=== PATIENT | male | born 1950 | race African-American/Black ===

== ENCOUNTER 2016-08-28 14:41 | Emergency (ER) | payer MEDICARE, OTHER ==
[~2016-08-28] VITALS: Ht 182.9 cm; Wt 77.1 kg
[~2016-08-28 14:41] MED LIST: AMBIEN10 M1 ORAL; ASPIRIN BUFFER325 M1 ORAL; ATORVASTATIN CA80 MG ORAL; BACLOFEN10 MG ORAL; BACTRIM 400-801 EACH ORAL; CLOPIDOGREL75 MG ORAL; DEMADEX10 MG IV; DOCUSIL100 M1 ORAL; HYDRALAZINE HCL25 M1 ORAL; ISOSORBIDE MONO30 M1 ORAL; KEFLEX500 MG ORAL; LOPRESSOR25 M1 ORAL; LOTREL 10-40 M1 EACH ORAL; MACROBID100 MG ORAL; NORCO 10-325 T1 EACH ORAL; NORCO 10/3251 EA ORAL; PLAVIX75 MG ORAL; TOPROL XL100 MG ORAL
[2016-08-28 15:00] VITALS: BP 105/69
--- NOTE | 2016-08-28 15:31 | Emergency Room Report ---
History of Present Illness General Chief Complaint: Pain Source: Patient Present Illness HPI Patient complains of right foot injury for one week. Says that he had a spinal cord injury in early and he has no sensation of his right foot. Since then he noticed that he developed a wound on his right foot that is getting larger, red and swollen and is now having discharge. Patient is requesting evaluation of his wound. Allergies: Coded Allergies: No Known Allergies (Unverified , 05/06/15) Patient History Past Medical History: see triage record Pertinent Family History: none Reviewed Nursing Documentation: PMH: Agreed, PSxH: Agreed Nursing Documentation-PMH Hx Cardiac Problems: Yes - [place]; stents Hx Hypertension: Yes - spinal cord injury/broken neck Hx Cancer: No Hx Gastrointestinal Problems: No Hx Spinal Cord Injury: Yes - due to fall Review of Systems All Other Systems: negative except mentioned in HPI Physical Exam Vital Signs Date Time Temp Pulse Resp B/P Pulse Ox O2 Delivery O2 Flow Rate FiO2 08/28/16 14:52 97.7 76 18 105/69 96 Room Air Sp02 EP Interpretation: reviewed, normal General Appearance: no apparent distress, alert, GCS 15, non-toxic Head: normocephalic, atraumatic Musculoskeletal: normal range of motion, non-tender Neurologic: alert, oriented x3, responsive, motor strength/tone normal, speech normal Skin: normal color, no rash, warm/dry, well hydrated, other - 3rd digit of right foot is erythematous with 1cm ulcer at DIP NTTP w/ mild local erythema and discharge. Lymphatic: no adenopathy Medical Decision Making PA Attestation Dr. Nowak is my supervising physician with whom patient management has been discussed with. Diagnostic Impression: Primary Impression: Toe ulcer, right Qualified Codes: L97.511 - Non-pressure chronic ulcer of other part of right foot limited to breakdown of skin Additional Impression: Cellulitis of toe of right foot ER Course Pt. presents to the ED c/o toe wound Ddx considered but are not limited to decubitus ulcer, cellulitis, abscess, osteomyelitis, fracture Vital signs: are WNL, pt. is afebrile H&PE are most consistent with ulcer with cellulitis ORDERS: XR Right Foot ED INTERVENTIONS: Wound Care with xeroform dressing. DISCHARGE: At this time pt. is stable for d/c to home. Advised to f/u with podiatry. Will provide printed patient care instructions, and any necessary prescriptions. Care plan and follow up instructions have been discussed with the patient prior to discharge. Other X-Ray Diagnostic Results Other X-Ray Diagnostic Results : X-Ray Ordered: Right Foot Findings: no fractures, no dislocation Number of Views: 3 Other Impression No Acute abnormality Last Vital Signs Date Time Temp Pulse Resp B/P Pulse Ox O2 Delivery O2 Flow Rate FiO2 08/28/16 14:52 97.7 76 18 105/69 96 Room Air Last Vital Signs Date Time Temp Pulse Resp B/P Pulse Ox O2 Delivery O2 Flow Rate FiO2 08/28/16 17:20 97.9 70 16 111/71 99 Room Air Status: improved Disposition: HOME, SELF-CARE Condition: Stable Scripts Trimethoprim/Sulfamethoxazole 160/800* (BACTRIM DS TABLET*) 1 Each Tablet 1 TAB ORAL TWICE A DAY, #20 TAB Prov: MILA CHARLES.ARose 08/28/16 Cephalexin* (KEFLEX*) 500 Mg Capsule 500 MG ORAL EVERY 12 HOURS, #20 CAP 0 Refills Prov: MILA CHARLES.A. 08/28/16 Patient Instructions: Cellulitis, Skin Ulcer Additional Instructions: Take medication as directed. Patient instructed to take ibuprofen and tylenol as needed for pain. Patient to return for wound check in 2-3 days with podiatry. Advised patient to keep site of infection elevated above the level of their heart 3 or 4 times a day, for 30 minutes each time to help reduce swelling. Patient is to keep the infected area clean and dry. They can take a shower or bath, but be sure to pat the area dry with a towel afterward. Patient instructed to not put any antibiotic ointments or creams on the area. Patient should come back sooner if their symptoms do not get better within 3 days of starting treatment or if the red area gets bigger, more swollen, or more painful. MILA CHARLES Aug 28, 2016 15:31
[2016-08-28 17:00] VITALS: BP 111/71
[2016-08-28] MEDS ORDERED: CEPHALEXIN500 MG ORAL (17:15)
[2016-08-28] MEDS ORDERED: BACTRIM DS TAB1 EAC1 ORAL (17:15)
[2016-08-28 17:20] VITALS: BP 111/71
--- NOTE | 2016-08-29 10:28 | Diagnostic Imaging Report ---
Indication: PAIN Technique: 3 views right foot Comparison: none Findings: There is severe hammertoe deformity of the second digit, less severe hammertoe deformities of the third through fifth digits. Deformity of the second digit limits assessment. No definite acute fractures. Note, however, there is significant flexion deformity of the second proximal interphalangeal joint. The joint spaces are preserved. Impression: Deformity of the second digit. Suspect that this largely represents chronic hammertoe deformity, although acute extension deformity or subluxation of the proximal interphalangeal joint cannot the completely ruled out. No definite acute fracture. Note, however, that evaluation of the second digit for such is limited.
== END 2016-08-28 17:20 | disposition home or self-care (01) ==
LOC: EMR 15:32
DX: L97.511 Non-pressure chronic ulcer of other part of right foot limited to breakdown of skin (principal); L03.031 Cellulitis of right toe; I25.2 Old myocardial infarction; Z95.5 Presence of coronary angioplasty implant and graft
CPT/HCPCS: 99284

== ENCOUNTER 2016-09-12 16:54 | Emergency (ER) | payer MEDICARE, OTHER ==
[~2016-09-12] VITALS: Ht 182.9 cm; Wt 77.1 kg
[~2016-09-12 16:54] MED LIST changes: +BACTRIM DS TAB1 EAC1 ORAL; +CEPHALEXIN500 MG ORAL
[2016-09-12] MEDS ORDERED: Norco 5mg/325mg tab ORAL ONE (17:30)
[2016-09-12] MEDS ORDERED: NORCO 5-325 TA1 EAC1 ORAL (18:25)
[2016-09-12 18:30] VITALS: BP 142/81
--- NOTE | 2016-09-12 21:48 | Emergency Room Report ---
History of Present Illness General Chief Complaint: Lower Extremity Injury Present Illness HPI The patient is a 66-year-old male status post left knee replacement 3 months prior presented for left knee pain which began today. The patient states that he was in the shower, slipped, and felt the knee bent at an irregular angle. Patient states he is feeling a 10 out of 10 dull ache to the back of the knee. he denies any numbness or tingling. Patient denies any radiating pain. The patient has not taken any pain medications Allergies: Coded Allergies: No Known Allergies (Unverified , 05/06/15) Patient History Past Medical History: see triage record Pertinent Family History: none Reviewed Nursing Documentation: PMH: Agreed, PSxH: Agreed Nursing Documentation-PMH Hx Cardiac Problems: Yes - [place]; stents Hx Hypertension: Yes - spinal cord injury/broken neck Hx Cancer: No Hx Gastrointestinal Problems: No Hx Spinal Cord Injury: Yes - due to fall Review of Systems All Other Systems: negative except mentioned in HPI Physical Exam Vital Signs Date Time Temp Pulse Resp B/P Pulse Ox O2 Delivery O2 Flow Rate FiO2 09/12/16 17:05 97.5 73 16 157/84 99 Room Air Sp02 EP Interpretation: reviewed, normal General Appearance: no apparent distress, alert, GCS 15, non-toxic Head: normocephalic, atraumatic Eyes: bilateral eye PERRL, bilateral eye normal inspection ENT: hearing grossly normal, normal pharynx, no angioedema, normal voice Musculoskeletal: normal range of motion, tender - Posterior L knee Neurologic: alert, oriented x3, responsive, motor strength/tone normal, sensory intact, speech normal Psychiatric: judgement/insight normal, memory normal, mood/affect normal, no suicidal/homicidal ideation Skin: other - L knee surgical scar anteriorly Lymphatic: no adenopathy Procedures Splinting Splinting : Consent: Verbal Location: L knee Pre-Made Type: DAVID wrap Pre-Proc Neuro Vasc Exam: normal Post-Proc Neuro Vasc Exam: normal Patient Tolerated: Well Complications: None Medical Decision Making PA Attestation Dr. Nowak is my supervising physician. Patient management was discussed with my supervising physician Diagnostic Impression: Primary Impression: Knee pain, left ER Course The patient is a 66-year-old male status post left knee replacement 3 months prior presented for left knee pain Ddx considered include but not limited to sprain/strain, fracture, contusion Physical exam: No apparent distress. Left knee: Surgical scar anteriorly. Full active range of motion. There is tenderness to palpation over posterior knee. No discoloration. Patient ambulates well with a walker The patient is given pain medication. X-ray of the left knee is unremarkable. Hardware is intact David wrap is placed over the left knee The patient will be discharged home with a prescription for pain medication and needs to follow up with PMD and orthopedic surgeon as soon as possible. ER precautions given Other X-Ray Diagnostic Results Other X-Ray Diagnostic Results : X-Ray Ordered: L knee Date: Sep 12, 2016 EP Interpretation: Yes Findings: no fractures, no dislocation, no soft tissue swelling Number of Views: 3 PA Scribe Text I am acting as scribe for my supervising physician. My supervising physician's interpretation of the L knee xrays are there are no fractures, dislocations or soft tissue swelling. Last Vital Signs Date Time Temp Pulse Resp B/P Pulse Ox O2 Delivery O2 Flow Rate FiO2 09/12/16 18:30 97.5 16 142/81 99 Room Air 09/12/16 17:05 73 Status: improved Disposition: HOME, SELF-CARE Condition: Improved Scripts Hydrocodone Bit/Acetaminophen 5-325* (NORCO 5-325 TABLET*) 1 Each Tablet 1 TAB ORAL Q6HR Y for For Pain, #8 TAB Prov: RUIZ STEEL 09/12/16 Patient Instructions: Knee Pain Additional Instructions: I discussed my findings with the patient. All questions and concerns have been answered. Treatment and medication compliance have been addressed. I advised the patient that they need to follow up with PMD in 3-5 days. Return to ED if pain remains or worsens, numbness or tingling occurs, new rash is noticed, fever is noticed, or if needed for any reason. Patient verbalized understanding of discharge instructions. The patient is advised he needs to followup with his orthopedic doctor. RUIZ STEEL Sep 12, 2016 21:48
--- NOTE | 2016-09-13 11:31 | Diagnostic Imaging Report ---
Indication: PAIN Technique: 3 views of the left knee Comparison: None Findings:There is a left knee prosthesis. This appears well aligned. No periprosthetic lucency is demonstrated. No acute fractures. No dislocations. There are vascular calcifications. Impression:Left knee prosthesis. No unusual features. No acute bony trauma
== END 2016-09-12 18:54 | disposition home or self-care (01) ==
LOC: EMR 17:40
DX: M25.562 Pain in left knee (principal); I25.2 Old myocardial infarction; Z95.5 Presence of coronary angioplasty implant and graft
CPT/HCPCS: 29530; 99283

== ENCOUNTER 2016-10-24 03:47 | Emergency (ER) | payer MEDICARE, OTHER ==
[~2016-10-24] VITALS: Ht 182.9 cm; Wt 77.1 kg
[~2016-10-24 03:47] MED LIST changes: +NORCO 5-325 TA1 EAC1 ORAL
[2016-10-24 03:50] VITALS: BP 178/91
[2016-10-24] MEDS ORDERED: Nitroglycerin Subl 0.4mg tab (Bottle Of 25) SL STA (04:06)
--- NOTE | 2016-10-24 04:06 | Emergency Room Report ---
History of Present Illness General Chief Complaint: Dyspnea/Respdistress Source: Patient Present Illness HPI Is a 66-year-old male with a history of cervical fracture partial paralysis and neurogenic bladder. He also has a history of hypertension and coronary artery disease with 4 stents. He denies any history of CHF. He presents with chief complaint shortness of breath that started about 4 hours ago. Getting worse. Worse with exertion. Worse with lying flat. Denies any chest pain. No cough. Because of respiratory distress he called 911. EMS placed him on oxygen and transferred him here. Allergies: Coded Allergies: No Known Allergies (Unverified , 05/06/15) Patient History Past Medical History: see triage record, old chart reviewed, HTN, AK, CAD Past Surgical History: other Pertinent Family History: none Social History: Denies: smoking Immunizations: other Reviewed Nursing Documentation: PMH: Agreed, PSxH: Agreed Nursing Documentation-PMH Past Medical History: No History, Except For Hx Cardiac Problems: Yes - 4 stents Hx Hypertension: Yes - spinal cord injury/broken neck Hx Cancer: No Hx Gastrointestinal Problems: No Hx Spinal Cord Injury: Yes - due to fall Review of Systems Eye: Denies: blurred vision, eye pain ENT: Denies: ear pain, nose congestion, throat swelling Respiratory: Reports: VALLE, shortness of breath, Denies: cough Cardiovascular: Denies: chest pain, palpitations Gastrointestinal: Denies: abdominal pain, diarrhea, nausea, vomiting Musculoskeletal: Denies: back pain, joint pain Skin: Denies: rash Neurological: Denies: headache, numbness Endocrine: Denies: increased thirst, increased urine Hematologic/Lymphatic: Denies: easy bruising All Other Systems: negative except mentioned in HPI Physical Exam Vital Signs Date Time Temp Pulse Resp B/P Pulse Ox O2 Delivery O2 Flow Rate FiO2 10/24/16 03:43 97.2 82 25 210/108 89 vitals with hypertension and hypoxia Sp02 EP Interpretation: abnormal General Appearance: alert, GCS 15, moderate distress Head: normocephalic, atraumatic Eyes: bilateral eye EOMI, bilateral eye PERRL ENT: hearing grossly normal, normal pharynx Neck: full range of motion, supple, no meningismus Respiratory: chest non-tender, decreased breath sounds, rales Cardiovascular #1: regular rate, rhythm, no murmur Gastrointestinal: normal bowel sounds, non tender, no mass, no organomegaly, no bruit, non-distended Genitourinary: other - Graham Musculoskeletal: back normal, normal range of motion, swelling - 1+ pitting edema Neurologic: alert, oriented x3 Psychiatric: mood/affect normal Skin: warm/dry Procedures Critical Care Time Critical Care Time Critical care is mandated in this patient who presented with respiratory distress secondary to CHF. Patient require my urgent intervention to attenuate the risks of respiratory collapse which may lead to cardiovascular collapse and . Critical care time is 35 minutes excluding any reportable procedure. Critical care time included evaluation, multiple reevaluation, looking at old charts, interpreting laboratory and diagnostic data, discussing case with patient and family and consultants, and charting. Medical Decision Making Diagnostic Impression: Primary Impression: CHF exacerbation Qualified Codes: I50.9 - Heart failure, unspecified Additional Impression: Hypokalemia ER Course Patient presents with acute CHF and hypoxia. He diuresed well here. He put out at least did have liters. He felt much better now. His last echocardiogram done in January of 2016 was unremarkable. Good left ventricular function. I am concerned about a cardiac event causing to be in CHF. He said he was on water pill before but it was cut down. He is stable for transfer to [facility] or [facility]. Patient refused and said he wants to leave and followup with his doctor. I explained the risk of possible cardiac event like a heart attack. He said he felt better and doesn 't want to stay. Patient is competent to make that decision. I will put him on Lasix and potassium. Lab Results Impression labs with elevated BNP EKG Diagnostic Results Rate: normal Rhythm: NSR ST Segments: no acute changes - 1st degree AV block Rhythm Strip Diag. Results EP Interpretation: yes Rate: 66 Rhythm: NSR, no PVC's, no ectopy Chest X-Ray Diagnostic Results EP Interpretation: Yes Findings: no consolidation, no effusion, no pneumothorax, other - CM with vasc congestion Number of Views: 1 Last Vital Signs Date Time Temp Pulse Resp B/P Pulse Ox O2 Delivery O2 Flow Rate FiO2 10/24/16 03:43 97.2 82 25 210/108 89 Status: improved Disposition: AGAINST MEDICAL ADVICE Condition: Improved Scripts Potassium Chloride* (K-DUR*) 10 Meq Capsule.er 10 MEQ ORAL DAILY, #30 TAB 0 Refills Prov: MARISOL CASILLAS M.D. 10/24/16 Furosemide* (LASIX*) 20 Mg Tablet 20 MG ORAL DAILY, #30 TAB Prov: MARISOL CASILLAS M.D. 10/24/16 Additional Instructions: You are leaving AGAINST MEDICAL ADVICE. You may have a heart attack that caused your heart failure. This may be life-threatening. Trachea medication as directed. Followup with your DrRose in one to 2 days. Go ahead and call your DrRose when you get home. Return if you change her mind. MARISOL CASILLAS M.D. October 24, 2016 04:06
[2016-10-24 04:15] LABS: EOSINOPHILS % (AUTO) 6.1 % (0.0-3.0); LYMPHOCYTES % (AUTO) 28.3 % (20.0-45.0); MEAN CORPUSCULAR HGB CONC 30.8 G/DL (32.0-36.0); MEAN CORPUSCULAR VOLUME 84 FL (80-99); MEAN PLATELET VOLUME 6.9 FL (6.5-10.1); MONOCYTES % (AUTO) 7.8 % (1.0-10.0); NEUTROPHILS % (AUTO) 56.9 % (45.0-75.0); PLATELET COUNT 292 K/UL (150-450); RED BLOOD COUNT 4.65 M/UL (4.70-6.10); WHITE BLOOD COUNT 7.8 K/UL (4.8-10.8)
[2016-10-24 04:25] LABS: PROTHROMBIN TIME 10.5 SEC (9.30-11.50)
[2016-10-24 04:27] LABS: TROPONIN I < 0.30 ng/mL (<=0.30)
[2016-10-24 04:28] LABS: ALANINE AMINOTRANSFERASE 9 U/L (3-41); ANION GAP 12 (5-15); ASPARTATE AMINO TRANSFERASE 16 U/L (5-40); CARBON DIOXIDE 28 mEQ/L (20-30); CHLORIDE 97 mEQ/L (98-107); GLOMERULAR FILTRATION RATE > 60 mL/min (>60); HEMOLYSIS 1; POTASSIUM 3.2 mEQ/L (3.4-4.9); SODIUM 137 mEQ/L (135-145); TOTAL PROTEIN 6.9 g/dL (6.6-8.7)
[2016-10-24 04:38] LABS: CKMB 2.1 ng/mL (< 6.7)
[2016-10-24] MEDS ORDERED: Enalaprilat 2.5mg/2ml Inj IV ONE (04:45)
[2016-10-24 05:50] VITALS: BP 170/76
[2016-10-24] MEDS ORDERED: TOPROL XL100 MG ORAL (05:55)
[2016-10-24] MEDS ORDERED: LYRICA300 MG ORAL (05:55)
[2016-10-24] MEDS ORDERED: ASPIRIN325 MG ORAL (05:55)
[2016-10-24] MEDS ORDERED: Norco 5mg/325mg tab ORAL ONE (06:15)
[2016-10-24] MEDS ORDERED: LASIX20 M1 ORAL (06:44)
[2016-10-24] MEDS ORDERED: POTASSIUM CHLO10 MEQ ORAL (06:44)
[2016-10-24 07:08] VITALS: BP 148/68
--- NOTE | 2016-10-24 11:07 | Diagnostic Imaging Report ---
Indication: Dyspnea Comparison: 02/06/16 A single view chest radiograph was obtained. Findings: Reticular densities are prominent bilaterally with cardiomegaly. Findings likely due to interstitial edema. Please correlate clinically. Bones are osteopenic. Impression: Suspected interstitial edema
--- NOTE | 2016-10-25 08:34 | Cardiology Report ---
APPROVED REPORT EKG Measurement Heart [id number] Sinus rhythm with 1st degree AV block Otherwise normal ECG
== END 2016-10-24 07:08 | disposition left against medical advice (07) ==
LOC: EDBD 03:47 → EMR 04:05
DX: I50.9 Heart failure, unspecified (principal); E87.6 Hypokalemia; Z53.21 Procedure and treatment not carried out due to patient leaving prior to being seen by health care provider; I10 Essential (primary) hypertension; Z87.828 Personal history of other (healed) physical injury and trauma; Z98.61 Coronary angioplasty status; I25.2 Old myocardial infarction; Z86.79 Personal history of other diseases of the circulatory system
CPT/HCPCS: 36415; 71010; 80053; 82550; 82553; 83880; 84484; 85025; 85610; 85730; 93005; 96374; 96375; 99291; J1940; J8499

== ENCOUNTER 2017-04-27 13:14 | Emergency (ER) | payer OTHER ==
[~2017-04-27] VITALS: Ht 175.3 cm; Wt 77.1 kg
[~2017-04-27 13:14] MED LIST changes: +ASPIRIN325 MG ORAL; +LASIX20 M1 ORAL; +LYRICA300 MG ORAL; +POTASSIUM CHLO10 MEQ ORAL
[2017-04-27] MEDS ORDERED: Ketorolac 30mg Inj IV ONE (13:45)
[2017-04-27] MEDS ORDERED: Morphine Sulfate 2mg/ml Inj IVP ONE (13:45)
--- NOTE | 2017-04-27 14:29 | Emergency Room Report ---
History of Present Illness General Chief Complaint: Male Urogenital Problems Source: Patient Present Illness HPI Patient presents with suprapubic pain. He has a chronic Zhu catheter in place. He most recently was given a prescription for Pyridium. He has had multiple UTIs in the past. Pyridium hasn't helped him at this time. Denies any fevers or chills. He feels fullness above he pubic area. The Zhu is draining urine that is now orange in color. Pain rated 9/10, constant, burning/ aching, not radiating. No other meds taken for pain. The patient has an indwelling Zhu due to spinal injury. A visiting RN changes the zhu monthly. No change in bowels. No fevers, NV. Chronic back pain from spinal injury and walks with walker. No depression. Urologist is in [facility] where his kids are. He lives here in [place]. Allergies: Coded Allergies: No Known Allergies (Unverified , 05/06/15) Patient History Past Medical History: see triage record Past Surgical History: PTCA, other - spine surgery/broken neck, knee replacement Social History: Denies: smoking Social History Narrative alternates [facility] and here Reviewed Nursing Documentation: PMH: Agreed, PSxH: Agreed Nursing Documentation-PMH Hx Cardiac Problems: Yes - 4 stents Hx Hypertension: Yes - spinal cord injury/broken neck Hx Cancer: No Hx Gastrointestinal Problems: No Hx Spinal Cord Injury: Yes - due to fall Review of Systems All Other Systems: negative except mentioned in HPI Physical Exam Vital Signs Date Time Temp Pulse Resp B/P (MAP) Pulse Ox O2 Delivery O2 Flow Rate FiO2 04/27/17 13:23 97.3 87 20 150/83 99 Room Air Sp02 EP Interpretation: reviewed, normal General Appearance: well appearing, no apparent distress, GCS 15 Head: normocephalic Eyes: bilateral eye normal inspection, bilateral eye PERRL ENT: moist mucus membranes Neck: supple Respiratory: lungs clear, normal breath sounds Cardiovascular #1: regular rate, rhythm Cardiovascular #2: 2+ radial (R) Gastrointestinal: normal inspection, normal bowel sounds, no mass, non- distended, tenderness - minimal suprapubic without mass Genitourinary: normal inspection, other - zhu Musculoskeletal: back normal, decreased range of motion - leg stiffness, other - wide based gate with walker Neurologic: alert, oriented x3, sensory intact, speech normal Psychiatric: mood/affect normal Skin: normal inspection, warm/dry Medical Decision Making Diagnostic Impression: Primary Impression: UTI (urinary tract infection) Qualified Codes: T83.511A - Infection and inflammatory reaction due to indwelling urethral catheter, initial encounter; N39.0 - Urinary tract infection , site not specified Additional Impression: Suprapubic pain ER Course Patient presents with suprapubic pain and chronic zhu. DDx: UTI, diverticulitis, strain amongst others. Labs and abd film indicated with changing zhu. Will treat with analgesics. UA with nitrites and some pyuria. Other labs with normal WBC, H/H and lytes. Abd film unremarkable. Treated with antibiotics. Improved with treatment. Less abd tenderness on re-exam. Patient stable for outpatient observation and treatment. Laboratory Tests Test 04/27/17 14:14 White Blood Count 6.3 K/UL (4.8-10.8) Red Blood Count 4.51 M/UL (4.70-6.10) L Hemoglobin 13.4 G/DL (14.2-18.0) L Hematocrit 41.1 % (42.0-52.0) L Mean Corpuscular Volume 91 FL (80-99) Mean Corpuscular Hemoglobin 29.7 PG (27.0-31.0) Mean Corpuscular Hemoglobin Concent 32.6 G/DL (32.0-36.0) Red Cell Distribution Width 15.1 % (11.6-14.8) H Platelet Count 318 K/UL (150-450) Mean Platelet Volume 6.6 FL (6.5-10.1) Neutrophils (%) (Auto) 38.1 % (45.0-75.0) L Lymphocytes (%) (Auto) 46.9 % (20.0-45.0) H Monocytes (%) (Auto) 12.1 % (1.0-10.0) H Eosinophils (%) (Auto) 1.5 % (0.0-3.0) Basophils (%) (Auto) 1.4 % (0.0-2.0) Prothrombin Time 10.2 SEC (9.30-11.50) Prothrombin Time INR 1.0 (0.9-1.1) PTT 26 SEC (23-33) Urine Color [place] Urine Appearance Clear Urine pH 9 (4.5-8.0) Urine Specific [place] 1.015 (1.005-1.035) Urine Protein 1+ (NEGATIVE) H Urine Glucose (UA) Negative (NEGATIVE) Urine Ketones Negative (NEGATIVE) Urine Occult Blood 1+ (NEGATIVE) H Urine Nitrite Positive (NEGATIVE) H Urine Bilirubin Negative (NEGATIVE) Urine Urobilinogen Normal MG/DL (0.0-1.0) Urine Leukocyte Esterase 1+ (NEGATIVE) H Urine RBC 0-2 /HPF (0 - 0) H Urine WBC 2-4 /HPF (0 - 0) Urine Squamous Epithelial Cells Occasional /LPF Urine Bacteria Moderate /HPF (NONE) H Sodium Level 144 MMOL/L (136-145) Potassium Level 3.6 MMOL/L (3.5-5.1) Chloride Level 108 MMOL/L (98-107) H Carbon Dioxide Level 28 MMOL/L (21-32) Anion Gap 8 mmol/L (5-15) Blood Urea Nitrogen 9 mg/dL (7-18) Creatinine 1.1 MG/DL (0.55-1.30) Estimate Glomerular Filtration Rate > 60 mL/min (>60) Glucose Level 89 MG/DL (74-106) Calcium Level 8.9 MG/DL (8.5-10.1) Total Bilirubin 0.4 MG/DL (0.2-1.0) Aspartate Amino Transferase (AST) 18 U/L (15-37) Alanine Aminotransferase (ALT) 15 U/L (12-78) Alkaline Phosphatase 67 U/L (46-116) Total Creatine Kinase 112 U/L (26-308) Total Protein 7.6 G/DL (6.4-8.2) Albumin 3.5 G/DL (3.4-5.0) Globulin 4.1 g/dL Albumin/Globulin Ratio 0.9 (1.0-2.7) L Lipase 274 U/L (73-393) Other X-Ray Diagnostic Results Other X-Ray Diagnostic Results : X-Ray ordered: abd # of Views/Limited Vs Complete: 1 View Indication: Pain Interpretation: nonspecific bowel gas, no sbo, other - no masses Impression: No acute disease Electronically Signed by: Mukesh Santiago MD Last Vital Signs Date Time Temp Pulse Resp B/P (MAP) Pulse Ox O2 Delivery O2 Flow Rate FiO2 04/27/17 16:22 97.3 60 18 150/75 100 Room Air Status: improved Disposition: HOME, SELF-CARE Condition: Improved Scripts Tramadol Hcl* (ULTRAM*) 50 Mg Tablet 50 MG ORAL Q6H Y for For Pain, #16 TAB 0 Refills Prov: Mukesh Santiago M.D. 04/27/17 Cephalexin* (KEFLEX*) 500 Mg Capsule 500 MG ORAL EVERY 6 HOURS, #28 CAP 0 Refills Prov: Mukesh Santiago M.D. 04/27/17 Referrals: NON PHYSICIAN (PCP) Mukesh Santiago M.D. Apr 27, 2017 14:29
[2017-04-27 14:36] LABS: BASOPHILS % (AUTO) 1.4 % (0.0-2.0); EOSINOPHILS % (AUTO) 1.5 % (0.0-3.0); LYMPHOCYTES % (AUTO) 46.9 % (20.0-45.0); MEAN CORPUSCULAR HEMOGLOBIN 29.7 PG (27.0-31.0); MEAN CORPUSCULAR HGB CONC 32.6 G/DL (32.0-36.0); MEAN CORPUSCULAR VOLUME 91 FL (80-99); MEAN PLATELET VOLUME 6.6 FL (6.5-10.1); MONOCYTES % (AUTO) 12.1 % (1.0-10.0); NEUTROPHILS % (AUTO) 38.1 % (45.0-75.0); PLATELET COUNT 318 K/UL (150-450); RED BLOOD COUNT 4.51 M/UL (4.70-6.10); RED CELL DISTRIBUTION WIDTH 15.1 % (11.6-14.8); WHITE BLOOD COUNT 6.3 K/UL (4.8-10.8)
[2017-04-27 14:37] LABS: APPEARANCE,URINE CLEAR; KETONES,URINE NEGATIVE (NEGATIVE); LEUKOCYTE ESTERASE ,URINE 1+ (NEGATIVE); NITRITE,URINE POSITIVE (NEGATIVE); PH,URINE 9 (4.5-8.0); PROTEIN,URINE 1+ (NEGATIVE); UROBILINOGEN,URINE NORMAL MG/DL (0.0-1.0)
[2017-04-27 14:49] LABS: BACTERIA,URINE MODERATE /HPF; RBC,URINE 0-2 /HPF (0 - 0); SQUAMOUS EPITHELIAL CELL,UR OCCASIONAL /LPF (NONE/OCC)
[2017-04-27 14:50] LABS: PROTHROMBIN TIME 10.2 SEC (9.30-11.50)
[2017-04-27 15:01] VITALS: BP 153/73
[2017-04-27 15:01] LABS: ANION GAP 8 mmol/L (5-15); CALCIUM 8.9 MG/DL (8.5-10.1); CARBON DIOXIDE 28 MMOL/L (21-32); CHLORIDE 108 MMOL/L (98-107); CREATININE 1.1 MG/DL (0.55-1.30); GLOMERULAR FILTRATION RATE > 60 mL/min (>60); POTASSIUM 3.6 MMOL/L (3.5-5.1); SODIUM 144 MMOL/L (136-145)
[2017-04-27 15:05] LABS: ALANINE AMINOTRANSFERASE 15 U/L (12-78); ALBUMIN/GLOBULIN RATIO 0.9 (1.0-2.7); ASPARTATE AMINO TRANSFERASE 18 U/L (15-37); LIPASE 274 U/L (73-393); TOTAL PROTEIN 7.6 G/DL (6.4-8.2)
[2017-04-27] MEDS ORDERED: cefTRIAXone 1 GM in NS 55 ML IVPB ONE (15:15)
--- NOTE | 2017-04-27 15:19 | Diagnostic Imaging Report ---
Indication: Abdominal pain Technique: Supine view of the abdomen Comparison: none Findings: Bowel gas pattern is unremarkable. No unusual masses or calcifications. Impression: No acute process
[2017-04-27] MEDS ORDERED: KEFLEX500 MG ORAL (16:00)
[2017-04-27] MEDS ORDERED: TRAMADOL HCL50 MG ORAL (16:00)
[2017-04-27 16:22] VITALS: BP 150/75
[2017-04-27 16:32] LABS: APPEARANCE,URINE CLEAR; KETONES,URINE NEGATIVE (NEGATIVE); LEUKOCYTE ESTERASE ,URINE 3+ (NEGATIVE); NITRITE,URINE POSITIVE (NEGATIVE); PH,URINE 7 (4.5-8.0); PROTEIN,URINE 1+ (NEGATIVE); UROBILINOGEN,URINE 4 MG/DL (0.0-1.0)
[2017-04-27 16:43] LABS: AMORPHOUS SEDIMENT,UR FEW /LPF; BACTERIA,URINE FEW /HPF
[2017-04-27 16:44] LABS: ICTOTEST NEGATIVE
== END 2017-04-27 16:24 | disposition home or self-care (01) ==
LOC: EMR 13:50
DX: N39.0 Urinary tract infection, site not specified (principal); I10 Essential (primary) hypertension; Z96.659 Presence of unspecified artificial knee joint; Z95.5 Presence of coronary angioplasty implant and graft
CPT/HCPCS: 36415; 74000; 80053; 81001; 81003; 82550; 82962; 83690; 85025; 85610; 85730; 87086; 87181; 96361; 96365; 96374; 96375; 99284; J2405

== ENCOUNTER 2017-07-02 23:36 | Inpatient (IN) | payer OTHER ==
[~2017-07-02] VITALS: Ht 182.9 cm; Wt 78.0 kg
[~2017-07-02 23:36] MED LIST changes: +TRAMADOL HCL50 MG ORAL
[2017-07-02] MEDS ORDERED: Morphine Sulfate 4mg/ml Inj IVP ONE (23:45)
[2017-07-03] VITALS (9 sets, daily range): BP systolic 132–158; BP diastolic 60–85
[2017-07-03 00:18] LABS: BASOPHILS % (AUTO) 1.7 % (0.0-2.0); HEMATOCRIT 38.7 % (42.0-52.0); HEMOGLOBIN 12.7 G/DL (14.2-18.0); LYMPHOCYTES % (AUTO) 46.2 % (20.0-45.0); MEAN CORPUSCULAR VOLUME 89 FL (80-99); MONOCYTES % (AUTO) 8.1 % (1.0-10.0); PLATELET COUNT 320 K/UL (150-450); RED BLOOD COUNT 4.33 M/UL (4.70-6.10); RED CELL DISTRIBUTION WIDTH 13.7 % (11.6-14.8)
[2017-07-03 00:36] LABS: ANION GAP 11 mmol/L (5-15); BLOOD UREA NITROGEN 10 mg/dL (7-18); CALCIUM 9.1 MG/DL (8.5-10.1); CARBON DIOXIDE 24 MMOL/L (21-32); CHLORIDE 98 MMOL/L (98-107); CREATININE 1.4 MG/DL (0.55-1.30); SODIUM 133 MMOL/L (136-145)
[2017-07-03 00:50] LABS: ALANINE AMINOTRANSFERASE 11 U/L (12-78); ALBUMIN 3.9 G/DL (3.4-5.0); ALKALINE PHOSPHATASE 78 U/L (46-116); ASPARTATE AMINO TRANSFERASE 17 U/L (15-37); BILIRUBIN,TOTAL 0.8 MG/DL (0.2-1.0); CKMB 1.8 NG/ML (0.0-3.6); CREATINE KINASE 152 U/L (26-308)
[2017-07-03 01:22] LABS: APPEARANCE,URINE CLEAR; BILIRUBIN, URINE NEGATIVE (NEGATIVE); COLOR,URINE PALE YELLOW; GLUCOSE, URINE (UA) NEGATIVE (NEGATIVE); KETONES,URINE NEGATIVE (NEGATIVE); NITRITE,URINE POSITIVE (NEGATIVE); PH,URINE 6 (4.5-8.0); PROTEIN,URINE NEGATIVE (NEGATIVE); UROBILINOGEN,URINE NORMAL MG/DL (0.0-1.0)
[2017-07-03 01:28] LABS: LEUKOCYTE ESTERASE ,URINE 1+ (NEGATIVE)
--- NOTE | 2017-07-03 01:59 | Emergency Room Report ---
History of Present Illness General Chief Complaint: Chest Pain Source: Patient Present Illness HPI Is a 67-year-old male with a history of CAD with previous stents. Also history of BPH with a chronic Graham. He presents with chief complaint of chest pain. He was at rest watching TV when about pain across his chest. Pain is sharp in nature. Radiating to his right arm. Also felt nauseous but no vomiting. No diaphoresis. No shortness of breath. Onset for 3 hours. He called 911. He received aspirin and nitroglycerin without any relief. Allergies: Coded Allergies: No Known Allergies (Unverified , 05/06/15) Patient History Past Medical History: see triage record, old chart reviewed, HTN, CAD Past Surgical History: other Pertinent Family History: none Social History: Denies: smoking Immunizations: other Reviewed Nursing Documentation: PMH: Agreed, PSxH: Agreed Nursing Documentation-PMH Hx Cardiac Problems: Yes - 4 stents, [place] Hx Hypertension: Yes - spinal cord injury/broken neck Hx Cancer: No Hx Gastrointestinal Problems: No Hx Spinal Cord Injury: Yes - due to fall Review of Systems Eye: Denies: eye pain, blurred vision ENT: Denies: ear pain, nose congestion, throat swelling Respiratory: Denies: cough, shortness of breath Cardiovascular: Reports: chest pain, Denies: palpitations Gastrointestinal: Denies: abdominal pain, diarrhea, nausea, vomiting Musculoskeletal: Denies: back pain, joint pain Skin: Denies: rash Neurological: Denies: headache, numbness Endocrine: Denies: increased thirst, increased urine Hematologic/Lymphatic: Denies: easy bruising All Other Systems: negative except mentioned in HPI Physical Exam Vital Signs Date Time Temp Pulse Resp B/P (MAP) Pulse Ox O2 Delivery O2 Flow Rate FiO2 07/02/17 23:34 98.1 120/76 07/02/17 23:40 61 16 07/03/17 01:42 97 Room Air vitals normal Sp02 EP Interpretation: reviewed, normal General Appearance: well appearing, no apparent distress, alert Head: normocephalic, atraumatic Eyes: bilateral eye PERRL, bilateral eye EOMI ENT: hearing grossly normal, normal pharynx Neck: full range of motion, supple, no meningismus Respiratory: chest non-tender, lungs clear, normal breath sounds Cardiovascular #1: regular rate, rhythm, no murmur Gastrointestinal: normal bowel sounds, non tender, no mass, no organomegaly, no bruit, non-distended Musculoskeletal: back normal, gait/station normal, normal range of motion Psychiatric: mood/affect normal Skin: warm/dry Medical Decision Making Diagnostic Impression: Primary Impression: ACS (acute coronary syndrome) ER Course Patient with chest pain. He has previous stents. Pain resolved now. We'll admit versus transfer for further workup. No evidence of PE, dissection, pneumonia or CHF to name a few. Laboratory Tests Test 07/03/17 00:05 07/03/17 01:05 White Blood Count 6.0 K/UL (4.8-10.8) Red Blood Count 4.33 M/UL (4.70-6.10) L Hemoglobin 12.7 G/DL (14.2-18.0) L Hematocrit 38.7 % (42.0-52.0) L Mean Corpuscular Volume 89 FL (80-99) Mean Corpuscular Hemoglobin 29.3 PG (27.0-31.0) Mean Corpuscular Hemoglobin Concent 32.8 G/DL (32.0-36.0) Red Cell Distribution Width 13.7 % (11.6-14.8) Platelet Count 320 K/UL (150-450) Mean Platelet Volume 7.3 FL (6.5-10.1) Neutrophils (%) (Auto) 43.0 % (45.0-75.0) L Lymphocytes (%) (Auto) 46.2 % (20.0-45.0) H Monocytes (%) (Auto) 8.1 % (1.0-10.0) Eosinophils (%) (Auto) 1.0 % (0.0-3.0) Basophils (%) (Auto) 1.7 % (0.0-2.0) Sodium Level 133 MMOL/L (136-145) L Potassium Level 4.0 MMOL/L (3.5-5.1) Chloride Level 98 MMOL/L (98-107) Carbon Dioxide Level 24 MMOL/L (21-32) Anion Gap 11 mmol/L (5-15) Blood Urea Nitrogen 10 mg/dL (7-18) Creatinine 1.4 MG/DL (0.55-1.30) H Estimat Glomerular Filtration Rate > 60 mL/min (>60) Glucose Level 88 MG/DL (74-106) Calcium Level 9.1 MG/DL (8.5-10.1) Total Bilirubin 0.8 MG/DL (0.2-1.0) Aspartate Amino Transf (AST/SGOT) 17 U/L (15-37) Alanine Aminotransferase (ALT/SGPT) 11 U/L (12-78) L Alkaline Phosphatase 78 U/L (46-116) Total Creatine Kinase 152 U/L (26-308) Creatine Kinase MB 1.8 NG/ML (0.0-3.6) Creatine Kinase MB Relative Index 1.1 Troponin I 0.003 ng/mL (0.000-0.056) Pro-B-Type Natriuretic Peptide 341 pg/mL (0-125) H Total Protein 7.7 G/DL (6.4-8.2) Albumin 3.9 G/DL (3.4-5.0) Globulin 3.8 g/dL Albumin/Globulin Ratio 1.0 (1.0-2.7) Urine Color Pale yellow Urine Appearance Clear Urine pH 6 (4.5-8.0) Urine Specific [place] 1.010 (1.005-1.035) Urine Protein Negative (NEGATIVE) Urine Glucose (UA) Negative (NEGATIVE) Urine Ketones Negative (NEGATIVE) Urine Occult Blood 1+ (NEGATIVE) H Urine Nitrite Positive (NEGATIVE) H Urine Bilirubin Negative (NEGATIVE) Urine Urobilinogen Normal MG/DL (0.0-1.0) Urine Leukocyte Esterase 1+ (NEGATIVE) H Urine RBC 0-2 /HPF (0 - 0) H Urine WBC 10-15 /HPF (0 - 0) H Urine Squamous Epithelial Cells None /LPF (NONE/OCC) Urine Bacteria None /HPF (NONE) Urine Opiates Screen Negative (NEGATIVE) Urine Barbiturates Screen Negative (NEGATIVE) Phencyclidine (PCP) Screen Negative (NEGATIVE) Urine Amphetamines Screen Negative (NEGATIVE) Urine Benzodiazepines Screen Negative (NEGATIVE) Urine Cocaine Screen Negative (NEGATIVE) Urine Marijuana (THC) Screen Negative (NEGATIVE) Lab Results Impression labs unremarkable EKG Diagnostic Results Rate: normal Rhythm: NSR ST Segments: no acute changes Rhythm Strip Diag. Results Rhythm Strip Time: 01:57 Rate: 69 Rhythm: NSR Chest X-Ray Diagnostic Results Chest X-Ray Diagnostic Results : Chest X-Ray Ordered: Yes # of Views/Limited/Complete: 1 View Indication: Chest Pain EP Interpretation: Yes Interpretation: no consolidation, no effusion, no pneumothorax, no acute cardiopulmonary disease Impression: No acute disease Electronically Signed by: Zay Valencia MD Last Vital Signs Date Time Temp Pulse Resp B/P (MAP) Pulse Ox O2 Delivery O2 Flow Rate FiO2 07/03/17 01:42 98.1 62 16 139/69 97 Room Air Status: improved Disposition: ADMITTED INPATIENT Condition: Serious Referrals: NON PHYSICIAN (PCP) ZAY VALENCIA M.D. Jul 03, 2017 01:59
[2017-07-03] MEDS ORDERED: UNOBMED (06:11)
[2017-07-03] MEDS ORDERED: Nitroglycerin Subl 0.4mg tab SL PRN (06:30)
[2017-07-03 07:04] LABS: ALANINE AMINOTRANSFERASE < 6 U/L (12-78); ALBUMIN 3.7 G/DL (3.4-5.0); ALBUMIN/GLOBULIN RATIO 1.1 (1.0-2.7); ALKALINE PHOSPHATASE 73 U/L (46-116); ANION GAP 10 mmol/L (5-15); ASPARTATE AMINO TRANSFERASE 15 U/L (15-37); BILIRUBIN,TOTAL 0.7 MG/DL (0.2-1.0); BLOOD UREA NITROGEN 9 mg/dL (7-18); CALCIUM 8.9 MG/DL (8.5-10.1); CARBON DIOXIDE 25 MMOL/L (21-32); CHLORIDE 102 MMOL/L (98-107); CHOLESTEROL 164 MG/DL (< 200); CREATININE 1.4 MG/DL (0.55-1.30); HDL CHOLESTEROL 52 MG/DL (40-60); POTASSIUM 3.9 MMOL/L (3.5-5.1); SODIUM 136 MMOL/L (136-145); TRIGLYCERIDES 60 MG/DL (30-150)
[2017-07-03] MEDS ORDERED: ISOSORBIDE MONO20 MG PO (07:22)
[2017-07-03] MEDS ORDERED: CIPROFLOXACIN500 M2 ORAL (07:22)
[2017-07-03] MEDS ORDERED: FUROSEMIDE40 MG ORAL (07:22)
[2017-07-03] MEDS ORDERED: METOPROLOL TART25 MG ORAL (07:22)
[2017-07-03] MEDS ORDERED: SULFAMETHOXAZO480 ML ORAL (07:22)
--- NOTE | 2017-07-03 10:20 | Diagnostic Imaging Report ---
Indication: Chest pain Technique: XRAY Chest 1v Comparison: None Findings: Heart size and mediastinal contours are within normal limits and stable compared to the prior exam. Atherosclerotic calcifications again noted in the aortic arch. There is no focal airspace consolidation, pleural effusion or pneumothorax. No evidence of pulmonary edema. No acute osseous abnormality seen. Likely cervical fixation hardware is partially visualized. Impression: No radiographic evidence of acute cardiopulmonary disease.
[2017-07-03] MEDS: Lyrica 75mg cap ORAL SCH ×2 (11:46→18:09)
[2017-07-03] MEDS: HYDROcodone/Acetamin 10/325 tab ORAL PRN ×3 (12:49→21:25)
--- NOTE | 2017-07-03 16:50 | Cardiology Report ---
APPROVED REPORT EXAM: Two-dimensional and M-mode echocardiogram with Doppler and color Doppler. INDICATION Chest Pain M-Mode DIMENSIONS IVSd1.4 (0.7-1.1cm)Left Atrium (MM)3.8 (1.6-4.0cm) LVDd5.0 (3.5-5.6cm)Aortic Root3.5 (2.0-3.7cm) PWd1.6 (0.7-1.1cm)Aortic Cusp Exc.2.0 (1.5-2.0cm) IVSs1.8 cm LVDs3.5 (2.5-4.0cm) PWs2.2 cm Technically difficult study due to poor acoustical windows. Normal left ventricular chamber size, systolic function and wall motion to extent visualized. Left ventricular ejection fraction estimated to be 60-65 %. Study quality precludes accurate assessment of regional wall motion. Mild left ventricular hypertrophy. No evidence of pericardial effusion. All other cardiac chamber sizes are within normal limits. Focal aortic valve sclerosis with adequate cusp excursion. Thickened mitral valve leaflets with normal excursion. Mitral annulus and aortic root calcification. Pulmonic valve not well visualized. Normal tricuspid valve structure. IVC at normal size with physiologic collapse. A color flow and spectral Doppler study was performed and revealed: No aortic insufficiency. No mitral regurgitation. Mitral inflow indicates normal left ventricular diastolic function. Trace tricuspid regurgitation. Tricuspid systolic velocities suggests peak right ventricular systolic pressure of 11 mmHg. No pulmonic regurgitation present.
[2017-07-03] MEDS: Piperacillin/Tazobactam 3.375 GM in NS 110 ML IVPB SCH (17:01)
--- NOTE | 2017-07-03 17:30 | History and Physical Report ---
DATE OF ADMISSION: 07/03/2017 CHIEF COMPLAINT: Unstable angina, acute coronary syndrome. HISTORY OF PRESENT ILLNESS: The patient is a pleasant 67-year-old male. He has a prior history of ischemic cardiomyopathy. He underwent stent placement approximately 10 years ago and then repeat stent placement approximately 5 years ago. At that time, he had substernal chest pressure. He noted on the day of admission that he had worsening chest pressure and shortness of breath. He denies any cough. He has had no fevers and no chills. He has been compliant with medications. He presented to the emergency room where his initial set of enzymes and EKG were unremarkable. In light of his significant cardiac history, he is now admitted for further inpatient evaluation and care. PAST MEDICAL HISTORY: Significant for history of lower extremity weakness, history of spinal cord injury, history of neck surgery and history of knee replacement. MEDICATIONS: Current medications reconciled and reviewed. ALLERGIES: None. FAMILY HISTORY: None. SOCIAL HISTORY: There is no known history of tobacco, ethanol, or drugs. REVIEW OF SYSTEMS: GENERAL: No fever or chills. HEENT: No headaches or visual changes. CARDIOPULMONARY: Positive chest pain and shortness of breath. No cough. No congestion. GASTROINTESTINAL: No nausea or vomiting. GENITOURINARY: No urgency or frequency. Positive history of chronic indwelling Graham catheter. NEUROLOGIC: There is no history of seizures. Positive history of spinal cord injury with lower extremity weakness. PHYSICAL EXAMINATION: VITAL SIGNS: Temperature 97.2 degrees, pulse 60, respirations 16 and blood pressure 149/70. GENERAL: The patient is well-developed male, in no apparent distress. He is awake, alert, and oriented x3. HEENT: His pupils are equal, round, and reactive to light. Oropharynx clear. NECK: Supple. HEART: Regular rate and rhythm. LUNGS: Clear. ABDOMEN: Soft, nontender, and nondistended. EXTREMITIES: Without clubbing, cyanosis, or edema. The patient has a chronic indwelling catheter. He has generalized weakness in his lower extremities. LABORATORY AND DIAGNOSTIC DATA: White count 6, hemoglobin 12, hematocrit 38 and platelets of 320. Sodium was 133, potassium 4, creatinine was 1.4. Urine showed 10 to 15 WBCs. ASSESSMENT: This is a pleasant male with complaints of chest pain. 1. Positive chest pain/acute coronary syndrome. 2. History of ischemic cardiomyopathy. 3. Possible urinary tract infection. 4. History of spinal cord injury with lower extremity weakness and chronic urinary retention. PLAN: Antiplatelet therapy. Serial enzymes. Check an echo. Antibiotics for urinary tract infection. Cardiology consultation. Yuri Merchant M.D. DR: LOAN JOB#: [id number] CC:
[2017-07-03] MEDS: Heparin 5000 units/ml inj SUBQ SCH (21:33)
[2017-07-03] MEDS ORDERED: Polyethylene Glycol 238gm bottle ORAL ONE (22:45)
[2017-07-03] MEDS ORDERED: Fleet's Enema 133ml RECTAL ONE (22:45)
[2017-07-04] VITALS: BP 137/76
[2017-07-04] MEDS: Piperacillin/Tazobactam 3.375 GM in NS 110 ML IVPB SCH ×3 (00:53→16:13)
[2017-07-04] MEDS ORDERED: Fleet's Enema 133ml RECTAL ONE ×2 (02:00→06:00)
[2017-07-04] MEDS ORDERED: Lexiscan 0.4mg/5ml syringe IV ONE (03:15)
[2017-07-04 04:00] VITALS: BP 145/80
--- NOTE | 2017-07-04 04:15 | Consultation ---
DATE OF CONSULTATION: 07/03/2017 CARDIOLOGY CONSULTATION CONSULTING PHYSICIAN: Mukesh Chow M.D. ATTENDING/REQUESTING PHYSICIAN: Yuri Merchant M.D. REASON FOR CONSULTATION: Chest pain in the setting of known coronary artery disease. HISTORY OF PRESENT ILLNESS: This is a 67-year-old male who has known history of ischemic heart disease. He is status post cardiac stenting approximately 10 years ago following heart attack and had repeat stent placed approximately five years ago as well. On the day of admission, he presented with worsening chest pressure and shortness of breath with symptoms similar to those he experienced at the time of his prior coronary stenting. He has not had any recent upper respiratory infection, change in diet or medications, or stressors. He has been compliant with his medication regimen. He was seen in the emergency room and concern raised over an acute coronary syndrome which prompted this hospital stay. PAST MEDICAL HISTORY: Prior spinal cord injury with lower extremity weakness, osteoarthritis, degenerative disk disease, history of knee replacement, hypertension, hyperlipidemia, coronary artery disease as described above. ALLERGIES: None. MEDICATIONS: Medications prior to admission, reviewed and reconciled. FAMILY HISTORY: Noncontributory. SOCIAL HISTORY: No record of smoking, alcohol, or substance abuse. REVIEW OF SYSTEMS: No fevers or chills. No loss of vision or hearing. No history of asthma or blood clotting. No history of prostate cancer. He does have history of neurogenic bladder and has a Graham catheter chronically. There is no history of seizures. He does have weakness of his lower extremities. There is no change in bowel habits. PHYSICAL EXAMINATION: VITAL SIGNS: Afebrile, blood pressure 149/70, pulse 60, respiratory rate 18. HEENT: Conjunctivae are pink. Sclerae are anicteric. Oropharynx clear. NECK: Supple. Jugular venous pressure normal. LUNGS: Clear. CARDIAC: Regular rhythm and rate. Normal S1, S2 with a fourth heart sound. ABDOMEN: Soft, nontender. No guarding or rebound. EXTREMITIES: No clubbing, cyanosis, or edema. GENITOURINARY: Catheter is noted in the penis. LABORATORY AND DIAGNOSTIC DATA: EKG revealed sinus rhythm, nonspecific ST changes, no acute process. Troponin negative x2. IMPRESSION: 1. Acute coronary syndrome. 2. Chronic diastolic congestive heart failure. 3. Hypertensive heart disease. 4. Coronary artery disease with prior history of coronary stenting. 5. Favorable lipid panel with LDL of 108 and HDL of 52. RECOMMENDATIONS: 1. Cardiac monitoring. 2. Anti-platelet therapy 3. Statin drug. 4. Titrate antianginals. 5. Myocardial perfusion scan for assessment of coronary flow reserve. Mukesh Chow M.D. DR: Neetu JOB#: [id number] CC:
[2017-07-04] MEDS: HYDROcodone/Acetamin 10/325 tab ORAL PRN ×4 (07:16→22:12)
[2017-07-04 08:00] VITALS: BP 133/73
[2017-07-04] MEDS: Lyrica 75mg cap ORAL SCH ×2 (08:19→17:13)
[2017-07-04] MEDS: Heparin 5000 units/ml inj SUBQ SCH ×2 (08:20→21:59)
[2017-07-04 09:12] LABS: ANION GAP 7 mmol/L (5-15); BLOOD UREA NITROGEN 15 mg/dL (7-18); CALCIUM 8.7 MG/DL (8.5-10.1); CARBON DIOXIDE 27 MMOL/L (21-32); CHLORIDE 105 MMOL/L (98-107); CREATININE 1.6 MG/DL (0.55-1.30); POTASSIUM 4.1 MMOL/L (3.5-5.1); SODIUM 139 MMOL/L (136-145)
--- NOTE | 2017-07-04 10:09 | General Progress Note ---
Assessment/Plan Problem List: (1) Graham catheter problem ICD Codes: T83.9XXA - Unspecified complication of genitourinary prosthetic device, implant and graft, initial encounter SNOMED: 075054519 (2) ACS (acute coronary syndrome) ICD Codes: I24.9 - Acute ischemic heart disease, unspecified SNOMED: 906829969 (3) UTI (urinary tract infection) ICD Codes: N39.0 - Urinary tract infection, site not specified SNOMED: 91497602 Status: stable, progressing Assessment/Plan stress test antiplt rx abx follow up urine culture Subjective ROS Limited/Unobtainable: No Constitutional: Reports: no symptoms HEENT: Reports: no symptoms Cardiovascular: Reports: chest pain Respiratory: Reports: no symptoms Gastrointestinal/Abdominal: Reports: no symptoms Genitourinary: Reports: no symptoms Neurologic/Psychiatric: Reports: no symptoms Endocrine: Reports: no symptoms Hematologic/Lymphatic: Reports: no symptoms Allergies: Coded Allergies: No Known Allergies (Unverified , 05/06/15) All Systems: reviewed and negative except above Subjective cards appreciated. still with chest pain not as severe. Objective Last 24 Hour Vital Signs Date Time Temp Pulse Resp B/P (MAP) Pulse Ox O2 Delivery O2 Flow Rate FiO2 07/04/17 08:15 97.3 07/04/17 08:15 97.3 07/04/17 08:00 97.5 60 22 133/73 99 Nasal Cannula 51 07/04/17 04:00 42 07/04/17 04:00 97.3 51 20 145/80 100 Nasal Cannula 51 07/04/17 00:00 97.5 56 20 137/76 98 Room Air 07/04/17 00:00 53 07/03/17 20:00 69 07/03/17 20:00 98.2 66 18 143/73 98 Nasal Cannula 07/03/17 16:00 76 07/03/17 16:00 97.9 70 19 144/76 98 Room Air 07/03/17 12:00 97.7 66 18 153/85 99 Room Air 07/03/17 12:00 83 07/03/17 10:40 66 07/03/17 10:20 97.2 60 16 149/70 96 Room Air 07/03/17 10:10 98.0 63 19 158/64 98 Room Air Intake and Output 07/03/17 07/04/17 19:00 07:00 Intake Total 400 ml 200 ml Output Total 420 ml 1000 ml Balance -20 ml -800 ml Intake Oral 400 ml 200 ml Output Urine Total 420 ml 1000 ml Laboratory Tests 07/04/17 07:50: Sodium Level 139, Potassium Level 4.1, Chloride Level 105, Carbon Dioxide Level 27, Anion Gap 7, Blood Urea Nitrogen 15, Creatinine 1.6H, Estimat Glomerular Filtration Rate 52.2, Glucose Level 111H, Calcium Level 8.7 Height (Feet): 6 Height (Inches): 0.00 Weight (Pounds): 172 General Appearance: WD/WN, alert Neck: supple Cardiovascular: regular rhythm Respiratory/Chest: chest wall non-tender, lungs clear, normal breath sounds Abdomen: normal bowel sounds, non tender, soft Edema: no edema noted Arm (L), no edema noted Arm (R), no edema noted Leg (L), no edema noted Leg (R), no edema noted Pedal (L), no edema noted Pedal (R), no edema noted Generalized [place] Jul 04, 2017 10:09
[2017-07-04 11:47] VITALS: BP 128/64
[2017-07-04 16:00] VITALS: BP 119/71
--- NOTE | 2017-07-04 16:37 | Diagnostic Imaging Report ---
Indications: Chest pain, prior NM, history of cardiac stents x4 Technique: Single day single isotope protocol utilized. Initially, resting images obtained using IV administration 9.9 millicuries 99M technetium Myoview. Subsequently, patient underwent lexiscan stress testing. See cardiology report for details. During Lexiscan infusion, IV administration 30.2 mCi 99 M technetium Myoview. SPECT and planar images obtained. SPECT images gated to 8 phases of the cardiac cycle were also obtained, and reformatted into cine images for evaluation of ejection fraction. Comparison: none Findings: Per cardiology report, patient experienced shortness of breath. Per cardiology report, resting EKG demonstrates sinus bradycardia with first-degree AV block. No ST changes seen with infusion. Imaging demonstrates an inferior wall perfusion defect on both the stress and resting images which is unchanged. No reversible perfusion defects are demonstrated. Normal cardiac chamber size. Calculated post stress ejection fraction 56%. No focal wall motion abnormality demonstrated Impression: Nonischemic clinical response to pharmacologic stress, per cardiology report Nonischemic electrocardiographic response to pharmacologic stress, per cardiology report Fixed inferior wall perfusion defect. This may represent an infarct, versus soft tissue attenuation. No imaging findings to suggest ischemia, at level of stress achieved. Calculated post stress ejection fraction 56%
[2017-07-04 20:40] VITALS: BP 117/69
[2017-07-05] VITALS: BP 136/76
[2017-07-05] MEDS: Piperacillin/Tazobactam 3.375 GM in NS 110 ML IVPB SCH ×2 (00:13→08:05)
--- NOTE | 2017-07-05 02:00 | Progress Note ---
DATE: 07/04/2017 CARDIOLOGY PROGRESS NOTE SUBJECTIVE: The patient continues to complain of chest pain. Troponin levels are negative. No acute EKG changes noted. The patient had myocardial perfusion Lexiscan today. The results revealed fixed inferior wall perfusion defect, but no acute changes or ischemia, ejection fraction 56% with no wall motion abnormalities. OBJECTIVE: VITAL SIGNS: Blood pressure 133/73, pulse 60, respiratory rate 22, and afebrile. Monitor, sinus and sinus bradycardia. NECK: Supple. LUNGS: Clear. CARDIAC: Regular. Normal S1 and S2 with a fourth heart sound. ABDOMEN: Soft. EXTREMITIES: No edema. IMPRESSION: 1. Likely microvascular angina. 2. Coronary artery disease with history of coronary stents. 3. Hypertensive heart disease. 4. Sinus bradycardia, on beta-monika. PLAN: 1. Medical therapy. 2. Additional nitrates. 3. Continue dual-antiplatelet therapy. 4. Discharge planning. 5. No beta-blockers in view of baseline bradycardia. Mukesh Chow M.D. DR: Bishnu JOB#: [id number] CC:
[2017-07-05] MEDS: HYDROcodone/Acetamin 10/325 tab ORAL PRN ×2 (03:58→09:16)
[2017-07-05 04:00] VITALS: BP 117/71
[2017-07-05] MEDS ORDERED: NITROFURANTOIN100 MG PO (07:54)
[2017-07-05 08:00] VITALS: BP 126/65
[2017-07-05] MEDS ORDERED: Imdur 30mg tab ORAL SCH (09:00)
[2017-07-05] MEDS: Lyrica 75mg cap ORAL SCH (09:17)
[2017-07-05] MEDS: Heparin 5000 units/ml inj SUBQ SCH (09:19)
[2017-07-05 12:00] VITALS: BP 102/68
[2017-07-05] MEDS ORDERED: Pneumococcal Vaccine 25mcg/0.5ml IM ONE (12:30)
[2017-07-05] MEDS ORDERED: NS 275ml ONE (13:59)
--- NOTE | 2017-07-05 15:30 | Discharge Summary ---
DATE OF ADMISSION: 07/03/2017 DATE OF DISCHARGE: 07/05/2017 ADMISSION DIAGNOSES: 1. Acute coronary syndrome. 2. History of spinal cord injury and paraplegia. 3. History of chronic indwelling Graham catheter for neurogenic bladder. 4. Hypertensive heart disease. 5. History of ischemic cardiomyopathy. DISCHARGE DIAGNOSES: 1. Acute coronary syndrome. 2. History of spinal cord injury and paraplegia. 3. History of chronic indwelling Graham catheter for neurogenic bladder. 4. Hypertensive heart disease. 5. History of ischemic cardiomyopathy. HOSPITAL COURSE: The patient is a pleasant male with a history of ischemic cardiomyopathy, admitted with complaints of chest pain. He was ruled out for WI with serial enzymes and EKG. He was diagnosed with gram-negative nacho UTI. He received IV antibiotics. Cardiology consultation was obtained. The patient underwent a stress test that was unremarkable. On discharge, he was stable. He will be discharged to complete seven days of antibiotic therapy. DISCHARGE MEDICATIONS: Please see discharge medication list for discharge medications. DIET: Cardiac diet. ACTIVITIES: Ad-tianna. FOLLOWUP: The patient instructed to follow up with his PMD regarding his urine infection within the next week to ensure clearance of his UTI. Yuri Merchant M.D. DR: OUSMANE JOB#: [id number] CC:
--- NOTE | 2017-07-06 04:02 | Progress Note ---
DATE: 07/05/2017 SUBJECTIVE: The patient has no new complaints. He does have chest pain. At some level, it is reproducible. His myocardial perfusion scan yesterday revealed normal ejection fraction with no reversible ischemia. OBJECTIVE: VITAL SIGNS: Blood pressure 102/68, pulse 62, and respirations 18. LUNGS: Clear. CARDIAC: Regular. Normal S1, S2. ABDOMEN: Soft. EXTREMITIES: No edema. IMPRESSION: 1. Microvascular angina. 2. Adequate coronary artery flow reserve. 3. Coronary artery disease with prior coronary stents. 4. Hypertension, controlled. PLAN: Plan of care is reviewed for discharge including medication list. Stable for outpatient followup. Mukesh Chow M.D. DR: DEMETRIO JOB#: [id number] CC:
--- NOTE | 2017-07-17 14:02 | Cardiology Report ---
APPROVED REPORT EKG Measurement Heart [id number] Sinus bradycardia with 1st degree AV block Otherwise normal ECG
== END 2017-07-05 14:00 | disposition home health service (06) | DRG 311 ==
LOC: EDBD 23:36 → EMR 23:53 → 2E 07-03 02:03 → EDBEDREQ 07-03 04:06
DX: I24.9 Acute ischemic heart disease, unspecified (principal); I11.0 Hypertensive heart disease with heart failure; I50.32 Chronic diastolic (congestive) heart failure; G82.20 Paraplegia, unspecified; N39.0 Urinary tract infection, site not specified; I25.119 Atherosclerotic heart disease of native coronary artery with unspecified angina pectoris; Z95.5 Presence of coronary angioplasty implant and graft; I25.5 Ischemic cardiomyopathy; B96.89 Other specified bacterial agents as the cause of diseases classified elsewhere; X58.XXXS Exposure to other specified factors, sequela; N31.9 Neuromuscular dysfunction of bladder, unspecified; Z96.659 Presence of unspecified artificial knee joint; E78.5 Hyperlipidemia, unspecified
CPT/HCPCS: 36415; 71045; 78452; 80048; 80053; 80061; 80307; 81003; 82550; 82553; 83880; 84443; 84484; 85025; 87086; 87181; 90732; 93005; 93017; 93306; 94760; 99285; J2405; J2785

== ENCOUNTER 2018-01-21 10:15 | Inpatient (IN) | payer OTHER ==
[2018-01-21] VITALS (19 sets, daily range): BP systolic 112–207; BP diastolic 65–95
[~2018-01-21] VITALS: Ht 175.3 cm; Wt 83.5 kg
[~2018-01-21 10:15] MED LIST changes: +CIPROFLOXACIN500 M2 ORAL; +FUROSEMIDE40 MG ORAL; +ISOSORBIDE MONO20 MG PO; +METOPROLOL TART25 MG ORAL; +NITROFURANTOIN100 MG PO; +SULFAMETHOXAZO480 ML ORAL; +UNOBMED
[2018-01-21] MEDS ORDERED: HYDRALAZINE HCL25 M1 ORAL (10:19)
[2018-01-21] MEDS ORDERED: PLAVIX75 MG ORAL (10:19)
[2018-01-21] MEDS ORDERED: Glucagon 1mg Inj IV ONE (10:30)
[2018-01-21] MEDS ORDERED: Atropine Sulfate 0.4mg/ml inj 20ML IVP ONE (10:30)
[2018-01-21] MEDS ORDERED: Atropine Inj 1mg/10ml Syr ONE (10:34)
[2018-01-21 10:50] LABS: BASOPHILS % (AUTO) 0.9 % (0.0-2.0); EOSINOPHILS % (AUTO) 1.5 % (0.0-3.0); HEMATOCRIT 42.1 % (42.0-52.0); HEMOGLOBIN 13.6 G/DL (14.2-18.0); MEAN CORPUSCULAR VOLUME 89 FL (80-99); MONOCYTES % (AUTO) 8.1 % (1.0-10.0); NEUTROPHILS % (AUTO) 47.6 % (45.0-75.0); PLATELET COUNT 319 K/UL (150-450); RED BLOOD COUNT 4.72 M/UL (4.70-6.10); RED CELL DISTRIBUTION WIDTH 14.9 % (11.6-14.8); WHITE BLOOD COUNT 7.1 K/UL (4.8-10.8)
[2018-01-21 10:56] LABS: ANION GAP 6 mmol/L (5-15); BLOOD UREA NITROGEN 13 mg/dL (7-18); CALCIUM 8.7 MG/DL (8.5-10.1); CARBON DIOXIDE 31 MMOL/L (21-32); CHLORIDE 110 MMOL/L (98-107); CREATININE 1.1 MG/DL (0.55-1.30); INR 1.1 (0.9-1.1); POTASSIUM 3.5 MMOL/L (3.5-5.1); SODIUM 147 MMOL/L (136-145)
[2018-01-21 11:09] LABS: ALANINE AMINOTRANSFERASE 11 U/L (12-78); ALBUMIN 3.6 G/DL (3.4-5.0); ALKALINE PHOSPHATASE 64 U/L (46-116); ASPARTATE AMINO TRANSFERASE 12 U/L (15-37); BILIRUBIN,TOTAL 0.4 MG/DL (0.2-1.0)
--- NOTE | 2018-01-21 11:24 | Diagnostic Imaging Report ---
EXAM: CT Head Without Intravenous Contrast CLINICAL HISTORY: AMS TECHNIQUE: Axial computed tomography images of the head/brain without intravenous contrast. CTDI is 70.38 mGy and DLP is 1411 mGy-cm. One or more of the following dose reduction techniques were used: automated exposure control, adjustment of the mA and/or kV according to patient size, use of iterative reconstruction technique. COMPARISON: No relevant prior studies available. FINDINGS: Somewhat limited by motion degradation. No intracranial hemorrhage, abnormal intra- or extra-axial collections or parenchymal lesions are seen. There are involutional changes with prominence of the sulci, basal cisterns and ventricles. Scattered white matter hypoattenuations are present, likely from small vessel disease. Maybe a subacute to old left caudate nucleus infarct. The dash-white differentiation is preserved. No evidence of mass effect, midline shift, or edema. The osseous structures are unremarkable. The visualized portions of the paranasal sinuses are clear. IMPRESSION: 1. Somewhat limited due to motion degradation. No definite acute intracranial process. 2. Involutional changes with small vessel disease. 3. 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
[2018-01-21] MEDS ORDERED: HYDROcodone/Acetamin 10/325 tab ORAL PRN (15:15)
[2018-01-21] MEDS ORDERED: Aspirin Baby 81mg ORAL SCH (15:30)
[2018-01-21] MEDS: Nitroglycerin Subl 0.4mg tab SL PRN ×2 (16:44→17:05)
--- NOTE | 2018-01-21 16:49 | Emergency Room Report ---
History of Present Illness General Chief Complaint: Altered Level of Consciousness Source: Patient Present Illness HPI Patient is a 67 yo male who presented after increased altered mental status after reported overdose of medications. Patient reportedly took an unknown amount of his medications. Patient was noted to have previously been taking beta blockers as well as other medications for thyroid. Patient reportedly had become increasingly lethargic. Allergies: Coded Allergies: No Known Allergies (Unverified , 05/06/15) Patient History Past Medical History: see triage record Reviewed Nursing Documentation: PMH: Agreed; PSxH: Agreed Nursing Documentation-PMH Past Medical History Deferred: Pt Cognitively Impaired Past Medical History: No History, Except For Hx Cardiac Problems: Yes - Patient Stated STENT placement Hx Hypertension: Yes - spinal cord injury/broken neck Hx Cancer: No Hx Gastrointestinal Problems: No Hx Neurological Problems: No Hx Spinal Cord Injury: Yes - due to fall Review of Systems All Other Systems: limited - by mental status Physical Exam Vital Signs Date Time Temp Pulse Resp B/P (MAP) Pulse Ox O2 Delivery O2 Flow Rate FiO2 01/21/18 10:14 97.7 48 17 199/86 100 Room Air 97.7 01/21/18 16:00 2.0 General Appearance: Chronically Ill Head: normocephalic Eyes: bilateral eye PERRL ENT: normal pharynx Neck: limited range of motion Respiratory: chest non-tender, lungs clear, normal breath sounds Cardiovascular #1: normal peripheral pulses, regular rate, rhythm Gastrointestinal: non tender, soft Musculoskeletal: normal inspection, normal range of motion Neurologic: normal inspection, alert, oriented x3, responsive, food mixer III-XII nml as tested Skin: normal inspection Medical Decision Making Diagnostic Impression: Primary Impression: Altered level of consciousness Additional Impression: Accidental medication overdose ER Course Patient presented for overdose. The differential diagnosis included was not limited to beta monika overdose, intracranial hemorrhage, CVA among others.Because of complexity of patient's case laboratory testing and imaging studies were ordered. The laboratory testing was unremarkable. Patient was noted to have some episodes of bradycardia with heart rate in the 30s. The patient was noted to have continued stable blood pressure. CT the head read by radiology showed no evidence of intracranial hemorrhage or acute CVA. The patient was discussed with poison control who recommended charcoal unless the patient had taken aspirin. Dr. Mukesh Chow was contacted for inpatient management due to episodic bradycardia and possible medication overdose Labs Test 01/21/18 10:20 01/21/18 10:50 01/21/18 14:30 01/22/18 05:25 Prothrombin Time 11.1 SEC (9.30-11.50) Prothromb Time International Ratio 1.1 (0.9-1.1) Activated Partial Thromboplast Time 26 SEC (23-33) Troponin I 0.013 ng/mL (0.000-0.056) Salicylates Level 1.0 ug/mL (2.8-20) Acetaminophen Level < 2 MCG/ML (10-30) Urine Opiates Screen Negative (NEGATIVE) Urine Barbiturates Screen Negative (NEGATIVE) Phencyclidine (PCP) Screen Negative (NEGATIVE) Urine Amphetamines Screen Negative (NEGATIVE) Urine Benzodiazepines Screen Negative (NEGATIVE) Urine Cocaine Screen Negative (NEGATIVE) Urine Marijuana (THC) Screen Negative (NEGATIVE) Urine Color Pale yellow Urine Appearance Cloudy Urine pH 6 (4.5-8.0) Urine Specific [place] 1.015 (1.005-1.035) Urine Protein Negative (NEGATIVE) Urine Glucose (UA) Negative (NEGATIVE) Urine Ketones Negative (NEGATIVE) Urine Occult Blood 2+ (NEGATIVE) Urine Nitrite Positive (NEGATIVE) Urine Bilirubin Negative (NEGATIVE) Urine Urobilinogen Normal MG/DL (0.0-1.0) Urine Leukocyte Esterase 3+ (NEGATIVE) Urine RBC 0-2 /HPF (0 - 0) Urine WBC 20-30 /HPF (0 - 0) Urine Squamous Epithelial Cells None /LPF (NONE/OCC) Urine Bacteria Many /HPF (NONE) Anion Gap 9 mmol/L (5-15) Lactic Acid Level 1.50 mmol/L (0.4-2.0) Albumin/Globulin Ratio 0.9 (1.0-2.7) Thyroid Stimulating Hormone (TSH) 0.739 uiU/mL (0.358-3.740) Test 01/23/18 05:16 White Blood Count 7.5 K/UL (4.8-10.8) Red Blood Count 5.09 M/UL (4.70-6.10) Hemoglobin 14.8 G/DL (14.2-18.0) Hematocrit 45.0 % (42.0-52.0) Mean Corpuscular Volume 88 FL (80-99) Mean Corpuscular Hemoglobin 29.1 PG (27.0-31.0) Mean Corpuscular Hemoglobin Concent 32.9 G/DL (32.0-36.0) Red Cell Distribution Width 14.7 % (11.6-14.8) Platelet Count 310 K/UL (150-450) Mean Platelet Volume 6.6 FL (6.5-10.1) Neutrophils (%) (Auto) 53.3 % (45.0-75.0) Lymphocytes (%) (Auto) 37.1 % (20.0-45.0) Monocytes (%) (Auto) 7.9 % (1.0-10.0) Eosinophils (%) (Auto) 0.8 % (0.0-3.0) Basophils (%) (Auto) 0.9 % (0.0-2.0) Last Vital Signs Date Time Temp Pulse Resp B/P (MAP) Pulse Ox O2 Delivery O2 Flow Rate FiO2 01/21/18 16:44 200/146 01/21/18 16:15 Room Air 2.0 01/21/18 16:00 45 15 99 01/21/18 15:00 98.5 98.5 Status: unchanged Disposition: ADMITTED INPATIENT Condition: Stable Referrals: [facility],REFERRING (PCP) Nicholas Goodwin MD Jan 21, 2018 16:48
[2018-01-21] MEDS: 1/2NS w/KCl 20mEq 1000ml 1,000 ML IV SCH (19:51)
[2018-01-21] MEDS: Norco 5mg/325mg tab ORAL PRN (19:51)
[2018-01-21] MEDS ORDERED: Atorvastatin 80mg tab ORAL SCH (21:00)
[2018-01-21] MEDS: HydrALAZINE 25mg tab ORAL PRN (21:45)
[2018-01-21] MEDS: HydrALAZINE 50mg tab ORAL SCH (23:09)
[2018-01-22] VITALS (25 sets, daily range): BP systolic 151–198; BP diastolic 68–134
[2018-01-22] MEDS: Norco 5mg/325mg tab ORAL PRN ×4 (00:34→21:58)
[2018-01-22] MEDS: 1/2NS w/KCl 20mEq 1000ml 1,000 ML IV SCH ×2 (04:32→15:21)
[2018-01-22 04:48] LABS: BILIRUBIN, URINE NEGATIVE (NEGATIVE); COLOR,URINE PALE YELLOW; GLUCOSE, URINE (UA) NEGATIVE (NEGATIVE); KETONES,URINE NEGATIVE (NEGATIVE); LEUKOCYTE ESTERASE ,URINE 3+ (NEGATIVE); NITRITE,URINE POSITIVE (NEGATIVE); PH,URINE 6 (4.5-8.0); PROTEIN,URINE NEGATIVE (NEGATIVE); UROBILINOGEN,URINE NORMAL MG/DL (0.0-1.0)
[2018-01-22 04:50] LABS: APPEARANCE,URINE CLOUDY
[2018-01-22 05:52] LABS: HEMOGLOBIN 14.3 G/DL (14.2-18.0); LYMPHOCYTES % (AUTO) 42.3 % (20.0-45.0); MEAN CORPUSCULAR VOLUME 89 FL (80-99); MONOCYTES % (AUTO) 8.3 % (1.0-10.0); NEUTROPHILS % (AUTO) 46.4 % (45.0-75.0); PLATELET COUNT 319 K/UL (150-450); RED BLOOD COUNT 4.97 M/UL (4.70-6.10); RED CELL DISTRIBUTION WIDTH 14.9 % (11.6-14.8)
[2018-01-22] MEDS ORDERED: HydrALAZINE 50mg tab ORAL SCH (06:00)
[2018-01-22] MEDS ORDERED: HydrALAZINE 25mg tab ORAL SCH (06:00)
[2018-01-22] MEDS: HydrALAZINE 50mg tab ORAL SCH ×3 (06:00→22:01)
[2018-01-22 06:24] LABS: ALANINE AMINOTRANSFERASE 11 U/L (12-78); ALBUMIN 3.1 G/DL (3.4-5.0); ALBUMIN/GLOBULIN RATIO 0.9 (1.0-2.7); ALKALINE PHOSPHATASE 64 U/L (46-116); ANION GAP 9 mmol/L (5-15); ASPARTATE AMINO TRANSFERASE 13 U/L (15-37); BILIRUBIN,TOTAL 0.6 MG/DL (0.2-1.0); BLOOD UREA NITROGEN 10 mg/dL (7-18); CALCIUM 8.3 MG/DL (8.5-10.1); CARBON DIOXIDE 27 MMOL/L (21-32); CHLORIDE 109 MMOL/L (98-107); CREATININE 1.1 MG/DL (0.55-1.30); POTASSIUM 3.7 MMOL/L (3.5-5.1); SODIUM 145 MMOL/L (136-145)
[2018-01-22] MEDS ORDERED: Furosemide 40mg tab ORAL SCH (09:00)
[2018-01-22] MEDS: Pantoprazole Inj IVP SCH (09:00)
[2018-01-22] MEDS: cefTRIAXone 1 GM in D5W 55 ML IVPB SCH (09:13)
[2018-01-22] MEDS: Aspirin Baby 81mg ORAL SCH (09:14)
[2018-01-22] MEDS: HYDROcodone/Acetamin 10/325 tab ORAL PRN ×2 (09:15→14:23)
[2018-01-22] MEDS: Heparin 5000 units/ml inj SUBQ SCH ×2 (09:19→20:38)
[2018-01-22] MEDS ORDERED: Tubing IV Secondary IV ONE (16:36)
[2018-01-22] MEDS ORDERED: 1/2 NS 1000ml IV ONE (16:36)
--- NOTE | 2018-01-22 18:47 | Cardiology Report ---
APPROVED REPORT EXAM: Two-dimensional and M-mode echocardiogram with Doppler and color Doppler. INDICATION Hypertension/HCVD M-Mode DIMENSIONS IVSd1.2 (0.7-1.1cm)Left Atrium (MM)3.9 (1.6-4.0cm) LVDd3.5 (3.5-5.6cm)Aortic Root3.5 (2.0-3.7cm) PWd1.3 (0.7-1.1cm)Aortic Cusp Exc.1.9 (1.5-2.0cm) IVSs1.5 cm LVDs2.0 (2.5-4.0cm) PWs1.1 cm Technically difficult study due to poor acoustical windows. Normal left ventricular chamber size, systolic function and wall motion. Left ventricular ejection fraction estimated to be 55-60 %. No evidence of left ventricular hypertrophy. No evidence of pericardial effusion. All other cardiac chamber sizes are within normal limits. Focal aortic valve sclerosis with adequate cusp excursion. Thickened mitral valve leaflets with normal excursion. Mitral annulus and aortic root calcification. Pulmonic valve not well visualized. Normal tricuspid valve structure. IVC dilated at 2.3 cm without physiologic collapse suggestive of increased RA pressure. A color flow and spectral Doppler study was performed and revealed: No aortic regurgitation. Trace mitral regurgitation. Normal left ventricular diastolic function . Trace tricuspid regurgitation. Tricuspid systolic velocities suggests peak right ventricular systolic pressure of 17 mmHg,
--- NOTE | 2018-01-22 20:32 | Consultation ---
History of Present Illness General Chief Complaint: Altered Level of Consciousness Present Illness HPI 67 yo male with hx of pain and opioid dependence who is admitted after an accidental od/ the pt was irritable and refused care and some of the meds. The pt answered some basic questions and asked me return when he has less pain Allergies: Coded Allergies: No Known Allergies (Unverified , 05/06/15) Medication History Scheduled Aspirin* (Aspirin*), 325 MG ORAL BID, (Reported) Atorvastatin Calcium* (Lipitor*), 80 MG ORAL BEDTIME, (Reported) Baclofen* (Baclofen*), 10 MG ORAL QID, (Reported) Cephalexin* (Keflex*), 500 MG ORAL EVERY 6 HOURS Ciprofloxacin Hcl* (Ciprofloxacin Hcl*), 500 MG ORAL EVERY 12 HOURS, (Reported) Clopidogrel Bisulfate* (Plavix*), 75 MG ORAL DAILY, (Reported) Clopidogrel* (Clopidogrel*), 75 MG ORAL DAILY, (Reported) Docusate Sodium* (Docusil*), 100 MG ORAL THREE TIMES A DAY, (Reported) Furosemide* (Lasix*), 20 MG ORAL DAILY Furosemide* (Lasix*), 40 MG ORAL DAILY, (Reported) Hydralazine Hcl* (Hydralazine Hcl*), 25 MG ORAL EVERY 8 HOURS, (Reported) Metoprolol Succinate* (Toprol Xl*), 100 MG ORAL DAILY, (Reported) Metoprolol Tartrate* (Metoprolol Tartrate*), 25 MG ORAL EVERY 12 HOURS, ( Reported) Nitrofurantoin Macrocrystal (Nitrofurantoin), 100 MG PO BIDAC Potassium Chloride* (K-Dur*), 10 MEQ ORAL DAILY Pregabalin (Lyrica), 300 MG ORAL TWICE A DAY, (Reported) Scheduled PRN Hydrocodone/Acetaminophen (Hydrocodon-Acetaminophn 10-325), 1 TAB ORAL Q4H PRN for For Pain, (Reported) Tramadol Hcl* (Ultram*), 50 MG ORAL Q6H PRN for For Pain Miscellaneous Medications Isosorbide Mononitrate (Isosorbide Mononitrate), 30 MG PO, (Reported) Sulfamethoxazole/Trimethoprim (Sulfamethoxazole-Tmp Susp), Unknown Dose ORAL, ( Reported) Unable to Obtain Medications (Unable To Obtain Meds), (Reported) Patient History Limited by: medical condition History Provided By: Patient, Medical Record, PMD Healthcare decision maker Resuscitation status Full Code Advanced Directive on File Past Medical/Surgical History Past Medical/Surgical History: (1) Abdominal pain (2) Rhabdomyolysis (3) Episode of generalized weakness (4) Knee pain, left (5) Suprapubic pain (6) UTI (urinary tract infection) (7) Graham catheter problem (8) Adverse drug reaction (9) Bradycardia (10) Altered level of consciousness Review of Systems Psychiatric: Reports: prior hx, anxiety, depressed feelings, emotional problems Physical Exam General Appearance: alert, moderate distress Neurologic: alert, oriented x 3, depressed affect Last 24 Hour Vital Signs Date Time Temp Pulse Resp B/P (MAP) Pulse Ox O2 Delivery O2 Flow Rate FiO2 01/22/18 19:00 90 14 171/83 (112) 97 01/22/18 18:00 92 13 156/85 (108) 97 01/22/18 17:00 90 14 168/75 (106) 97 01/22/18 16:00 Room Air 01/22/18 16:00 97.8 92 16 167/81 (109) 97 97.8 01/22/18 16:00 98 01/22/18 15:00 101 14 165/82 (109) 97 01/22/18 14:00 116 16 154/80 (104) 98 01/22/18 13:14 191/95 01/22/18 13:13 72 191/95 01/22/18 13:00 64 13 191/95 (127) 99 01/22/18 12:01 98.5 63 12 191/88 (122) 99 98.5 01/22/18 12:00 63 12 191/88 (122) 99 01/22/18 12:00 59 01/22/18 12:00 Room Air 01/22/18 11:00 60 12 165/110 (128) 98 01/22/18 10:00 61 12 158/99 (118) 98 01/22/18 09:00 59 11 190/81 (117) 99 01/22/18 08:00 98.5 58 14 190/85 (120) 99 98.5 01/22/18 08:00 55 01/22/18 08:00 Room Air 01/22/18 07:00 54 33 185/92 (123) 99 01/22/18 06:00 60 16 161/99 (119) 98 01/22/18 06:00 161/99 01/22/18 05:00 56 14 170/78 (108) 99 01/22/18 04:00 55 01/22/18 04:00 Room Air 01/22/18 04:00 60 16 190/68 (108) 98 01/22/18 03:00 98.9 59 16 174/134 (147) 98 98.9 01/22/18 02:00 61 14 151/112 (125) 99 01/22/18 01:00 62 15 164/128 (140) 98 01/22/18 00:00 Room Air 01/22/18 00:00 66 01/22/18 00:00 66 13 158/81 (106) 99 01/21/18 23:09 190/68 01/21/18 23:00 98.8 59 12 190/68 (108) 99 98.8 01/21/18 22:00 59 14 178/72 (107) 97 01/21/18 21:45 204/71 01/21/18 21:00 58 13 204/74 (117) 97 Intake and Output 01/21/18 01/22/18 19:00 07:00 Intake Total 0 ml 1300 ml Output Total 130 ml 950 ml Balance -130 ml 350 ml Intake Oral 0 ml 100 ml IV Total 1200 ml Output Urine Total 130 ml 950 ml Laboratory Tests Test 01/22/18 05:25 White Blood Count 7.0 K/UL (4.8-10.8) Red Blood Count 4.97 M/UL (4.70-6.10) Hemoglobin 14.3 G/DL (14.2-18.0) Hematocrit 44.0 % (42.0-52.0) Mean Corpuscular Volume 89 FL (80-99) Mean Corpuscular Hemoglobin 28.7 PG (27.0-31.0) Mean Corpuscular Hemoglobin Concent 32.4 G/DL (32.0-36.0) Red Cell Distribution Width 14.9 % (11.6-14.8) H Platelet Count 319 K/UL (150-450) Mean Platelet Volume 7.0 FL (6.5-10.1) Neutrophils (%) (Auto) 46.4 % (45.0-75.0) Lymphocytes (%) (Auto) 42.3 % (20.0-45.0) Monocytes (%) (Auto) 8.3 % (1.0-10.0) Eosinophils (%) (Auto) 2.0 % (0.0-3.0) Basophils (%) (Auto) 1.0 % (0.0-2.0) Sodium Level 145 MMOL/L (136-145) Potassium Level 3.7 MMOL/L (3.5-5.1) Chloride Level 109 MMOL/L (98-107) H Carbon Dioxide Level 27 MMOL/L (21-32) Anion Gap 9 mmol/L (5-15) Blood Urea Nitrogen 10 mg/dL (7-18) Creatinine 1.1 MG/DL (0.55-1.30) Estimat Glomerular Filtration Rate > 60 mL/min (>60) Glucose Level 95 MG/DL (74-106) Lactic Acid Level 1.50 mmol/L (0.4-2.0) Calcium Level 8.3 MG/DL (8.5-10.1) L Magnesium Level 2.1 MG/DL (1.8-2.4) Total Bilirubin 0.6 MG/DL (0.2-1.0) Aspartate Amino Transf (AST/SGOT) 13 U/L (15-37) L Alanine Aminotransferase (ALT/SGPT) 11 U/L (12-78) L Alkaline Phosphatase 64 U/L (46-116) Total Protein 6.6 G/DL (6.4-8.2) Albumin 3.1 G/DL (3.4-5.0) L Globulin 3.5 g/dL Albumin/Globulin Ratio 0.9 (1.0-2.7) L Thyroid Stimulating Hormone (TSH) 0.739 uiU/mL (0.358-3.740) Height (Feet): 5 Height (Inches): 9.00 Weight (Pounds): 193 Medications Current Medications Medications (Trade) Dose Ordered Sig/Makenzie Route PRN Reason Start Time Stop Time Status Last Admin Dose Admin Acetaminophen/ Hydrocodone Bitart (Champion 10/325) 1 tab Q4H PRN ORAL Severe Pain (Pain Scale 7-10) 01/22/18 08:30 01/29/18 08:29 01/22/18 14:23 Acetaminophen/ Hydrocodone Bitart ([place] 5/325) 1 tab Q4H PRN ORAL Moderate Pain (Pain Scale 4-6) 01/21/18 18:30 01/28/18 18:29 01/22/18 17:18 Amlodipine Besylate (Norvasc) 10 mg DAILY ORAL 01/23/18 09:00 02/22/18 08:59 Aspirin (ASA) 81 mg DAILY ORAL 01/22/18 09:00 02/21/18 08:59 01/22/18 09:14 Ceftriaxone Sodium 1 gm/ Dextrose 55 ml @ 110 mls/hr Q24H IVPB 01/22/18 10:00 01/29/18 09:59 01/22/18 09:13 Heparin Sodium (Porcine) (Heparin 5000 units/ml) 5,000 units EVERY 12 HOURS SUBQ 01/22/18 09:00 02/21/18 08:59 01/22/18 09:19 Hydralazine HCl (Apresoline) 25 mg Q4H PRN ORAL For High Blood Pressure 01/21/18 21:30 02/20/18 21:29 01/21/18 21:45 Hydralazine HCl (Apresoline) 50 mg EVERY 8 HOURS ORAL 01/22/18 00:00 02/21/18 05:59 01/22/18 13:14 Pantoprazole (Protonix) 40 mg DAILY IVP 01/22/18 09:00 02/21/18 08:59 Sodium 1,000 ml @ 100 mls/hr Q10H IV 01/21/18 19:30 02/20/18 19:29 01/22/18 15:21 Assessment/Plan Assessment/Plan opioid dependence pain syndrome rec methadone will coordinate with Mr. Mclean tomorrow Cathy Chung MD Jan 22, 2018 20:32
[2018-01-22] MEDS: HydrALAZINE 25mg tab ORAL PRN (20:45)
[2018-01-23] VITALS (19 sets, daily range): BP systolic 127–187; BP diastolic 67–105
[2018-01-23] MEDS: 1/2NS w/KCl 20mEq 1000ml 1,000 ML IV SCH ×2 (01:51→18:00)
[2018-01-23] MEDS: Norco 5mg/325mg tab ORAL PRN (02:02)
[2018-01-23] MEDS: HydrALAZINE 50mg tab ORAL SCH ×3 (05:54→21:37)
[2018-01-23 06:24] LABS: BASOPHILS % (AUTO) 0.9 % (0.0-2.0); EOSINOPHILS % (AUTO) 0.8 % (0.0-3.0); HEMOGLOBIN 14.8 G/DL (14.2-18.0); LYMPHOCYTES % (AUTO) 37.1 % (20.0-45.0); MEAN CORPUSCULAR VOLUME 88 FL (80-99); MONOCYTES % (AUTO) 7.9 % (1.0-10.0); NEUTROPHILS % (AUTO) 53.3 % (45.0-75.0); PLATELET COUNT 310 K/UL (150-450); RED BLOOD COUNT 5.09 M/UL (4.70-6.10); RED CELL DISTRIBUTION WIDTH 14.7 % (11.6-14.8); WHITE BLOOD COUNT 7.5 K/UL (4.8-10.8)
[2018-01-23 07:01] LABS: ALANINE AMINOTRANSFERASE 11 U/L (12-78); ALBUMIN 2.9 G/DL (3.4-5.0); ALBUMIN/GLOBULIN RATIO 0.9 (1.0-2.7); ALKALINE PHOSPHATASE 66 U/L (46-116); ANION GAP 9 mmol/L (5-15); ASPARTATE AMINO TRANSFERASE 14 U/L (15-37); BILIRUBIN,TOTAL 0.7 MG/DL (0.2-1.0); BLOOD UREA NITROGEN 8 mg/dL (7-18); CALCIUM 8.2 MG/DL (8.5-10.1); CARBON DIOXIDE 24 MMOL/L (21-32); CHLORIDE 107 MMOL/L (98-107); CHOLESTEROL 136 MG/DL (< 200); HDL CHOLESTEROL 44 MG/DL (40-60); SODIUM 140 MMOL/L (136-145); TRIGLYCERIDES 67 MG/DL (30-150)
--- NOTE | 2018-01-23 07:59 | Consultation ---
History of Present Illness General Date patient seen: Jan 23, 2018 Chief Complaint: Present Illness Allergies: Coded Allergies: No Known Allergies (Unverified , 05/06/15) Medication History Scheduled Aspirin* (Aspirin*), 325 MG ORAL BID, (Reported) Atorvastatin Calcium* (Lipitor*), 80 MG ORAL BEDTIME, (Reported) Baclofen* (Baclofen*), 10 MG ORAL QID, (Reported) Cephalexin* (Keflex*), 500 MG ORAL EVERY 6 HOURS Ciprofloxacin Hcl* (Ciprofloxacin Hcl*), 500 MG ORAL EVERY 12 HOURS, (Reported) Clopidogrel Bisulfate* (Plavix*), 75 MG ORAL DAILY, (Reported) Clopidogrel* (Clopidogrel*), 75 MG ORAL DAILY, (Reported) Docusate Sodium* (Docusil*), 100 MG ORAL THREE TIMES A DAY, (Reported) Furosemide* (Lasix*), 20 MG ORAL DAILY Furosemide* (Lasix*), 40 MG ORAL DAILY, (Reported) Hydralazine Hcl* (Hydralazine Hcl*), 25 MG ORAL EVERY 8 HOURS, (Reported) Metoprolol Succinate* (Toprol Xl*), 100 MG ORAL DAILY, (Reported) Metoprolol Tartrate* (Metoprolol Tartrate*), 25 MG ORAL EVERY 12 HOURS, ( Reported) Nitrofurantoin Macrocrystal (Nitrofurantoin), 100 MG PO BIDAC Potassium Chloride* (K-Dur*), 10 MEQ ORAL DAILY Pregabalin (Lyrica), 300 MG ORAL TWICE A DAY, (Reported) Scheduled PRN Hydrocodone/Acetaminophen (Hydrocodon-Acetaminophn 10-325), 1 TAB ORAL Q4H PRN for For Pain, (Reported) Tramadol Hcl* (Ultram*), 50 MG ORAL Q6H PRN for For Pain Miscellaneous Medications Isosorbide Mononitrate (Isosorbide Mononitrate), 30 MG PO, (Reported) Sulfamethoxazole/Trimethoprim (Sulfamethoxazole-Tmp Susp), Unknown Dose ORAL, ( Reported) Unable to Obtain Medications (Unable To Obtain Meds), (Reported) Patient History Healthcare decision maker Resuscitation status Full Code Advanced Directive on File Physical Exam Last 24 Hour Vital Signs Date Time Temp Pulse Resp B/P (MAP) Pulse Ox O2 Delivery O2 Flow Rate FiO2 01/23/18 06:00 103 19 187/81 (116) 97 01/23/18 05:54 171/87 01/23/18 05:00 85 14 171/87 (115) 97 01/23/18 04:00 90 01/23/18 04:00 98.8 90 14 156/92 (113) 97 98.8 01/23/18 04:00 Room Air 01/23/18 03:05 98.3 01/23/18 03:00 101 14 178/84 (115) 97 01/23/18 02:02 98.3 01/23/18 02:00 97 18 183/83 (116) 97 01/23/18 01:00 100 16 162/86 (111) 97 01/23/18 00:00 126 01/23/18 00:00 98.3 126 25 178/105 (129) 97 98.3 01/23/18 00:00 Room Air 01/22/18 23:00 99 15 160/75 (103) 97 01/22/18 22:01 198/104 01/22/18 22:00 94 19 169/82 (111) 96 01/22/18 21:58 97.6 01/22/18 21:00 120 21 198/104 (135) 97 01/22/18 20:45 184/105 01/22/18 20:00 Room Air 01/22/18 20:00 92 01/22/18 20:00 98.6 92 17 190/110 (136) 95 98.6 01/22/18 19:00 90 14 171/83 (112) 97 01/22/18 18:00 92 13 156/85 (108) 97 01/22/18 17:00 90 14 168/75 (106) 97 01/22/18 16:00 Room Air 01/22/18 16:00 97.8 92 16 167/81 (109) 97 97.8 01/22/18 16:00 98 01/22/18 15:00 101 14 165/82 (109) 97 01/22/18 14:00 116 16 154/80 (104) 98 01/22/18 13:14 191/95 18 13:13 72 191/95 01/22/18 13:00 64 13 191/95 (127) 99 01/22/18 12:01 98.5 63 12 191/88 (122) 99 98.5 01/22/18 12:00 63 12 191/88 (122) 99 01/22/18 12:00 59 01/22/18 12:00 Room Air 01/22/18 11:00 60 12 165/110 (128) 98 01/22/18 10:00 61 12 158/99 (118) 98 01/22/18 09:00 59 11 190/81 (117) 99 01/22/18 08:00 98.5 58 14 190/85 (120) 99 98.5 01/22/18 08:00 55 01/22/18 08:00 Room Air Intake and Output 01/22/18 01/23/18 19:00 07:00 Intake Total 1675 ml 680 ml Output Total 1450 ml 850 ml Balance 225 ml -170 ml Intake Oral 410 ml 80 ml IV Total 1255 ml 600 ml Other 10 ml Output Urine Total 1450 ml 850 ml Laboratory Tests Test 01/23/18 05:16 White Blood Count 7.5 K/UL (4.8-10.8) Red Blood Count 5.09 M/UL (4.70-6.10) Hemoglobin 14.8 G/DL (14.2-18.0) Hematocrit 45.0 % (42.0-52.0) Mean Corpuscular Volume 88 FL (80-99) Mean Corpuscular Hemoglobin 29.1 PG (27.0-31.0) Mean Corpuscular Hemoglobin Concent 32.9 G/DL (32.0-36.0) Red Cell Distribution Width 14.7 % (11.6-14.8) Platelet Count 310 K/UL (150-450) Mean Platelet Volume 6.6 FL (6.5-10.1) Neutrophils (%) (Auto) 53.3 % (45.0-75.0) Lymphocytes (%) (Auto) 37.1 % (20.0-45.0) Monocytes (%) (Auto) 7.9 % (1.0-10.0) Eosinophils (%) (Auto) 0.8 % (0.0-3.0) Basophils (%) (Auto) 0.9 % (0.0-2.0) Sodium Level 140 MMOL/L (136-145) Potassium Level 4.0 MMOL/L (3.5-5.1) Chloride Level 107 MMOL/L (98-107) Carbon Dioxide Level 24 MMOL/L (21-32) Anion Gap 9 mmol/L (5-15) Blood Urea Nitrogen 8 mg/dL (7-18) Creatinine 1.0 MG/DL (0.55-1.30) Estimat Glomerular Filtration Rate > 60 mL/min (>60) Glucose Level 101 MG/DL (74-106) Calcium Level 8.2 MG/DL (8.5-10.1) L Magnesium Level 2.0 MG/DL (1.8-2.4) Total Bilirubin 0.7 MG/DL (0.2-1.0) Aspartate Amino Transf (AST/SGOT) 14 U/L (15-37) L Alanine Aminotransferase (ALT/SGPT) 11 U/L (12-78) L Alkaline Phosphatase 66 U/L (46-116) Pro-B-Type Natriuretic Peptide 1350 pg/mL (0-125) H Total Protein 6.3 G/DL (6.4-8.2) L Albumin 2.9 G/DL (3.4-5.0) L Globulin 3.4 g/dL Albumin/Globulin Ratio 0.9 (1.0-2.7) L Triglycerides Level 67 MG/DL (30-150) Cholesterol Level 136 MG/DL (< 200) LDL Cholesterol 92 mg/dL (<100) HDL Cholesterol 44 MG/DL (40-60) Cholesterol/HDL Ratio 3.1 (3.3-4.4) L Height (Feet): 5 Height (Inches): 9.00 Weight (Pounds): 192 Medications Current Medications Medications (Trade) Dose Ordered Sig/Makenzie Route PRN Reason Start Time Stop Time Status Last Admin Dose Admin Acetaminophen/ Hydrocodone Bitart (Robinson 10/325) 1 tab Q4H PRN ORAL Severe Pain (Pain Scale 7-10) 01/22/18 08:30 01/29/18 08:29 01/22/18 14:23 Acetaminophen/ Hydrocodone Bitart (Rob[place] 5/325) 1 tab Q4H PRN ORAL Moderate Pain (Pain Scale 4-6) 01/21/18 18:30 18 18:29 01/23/18 02:02 Amlodipine Besylate (Norvasc) 10 mg DAILY ORAL 01/23/18 09:00 02/22/18 08:59 Aspirin (ASA) 81 mg DAILY ORAL 01/22/18 09:00 02/21/18 08:59 01/22/18 09:14 Ceftriaxone Sodium 1 gm/ Dextrose 55 ml @ 110 mls/hr Q24H IVPB 01/22/18 10:00 01/29/18 09:59 01/22/18 09:13 Heparin Sodium (Porcine) (Heparin 5000 units/ml) 5,000 units EVERY 12 HOURS SUBQ 01/22/18 09:00 02/21/18 08:59 01/22/18 20:38 Hydralazine HCl (Apresoline) 25 mg Q4H PRN ORAL For High Blood Pressure 01/21/18 21:30 02/20/18 21:29 01/22/18 20:45 Hydralazine HCl (Apresoline) 50 mg EVERY 8 HOURS ORAL 01/22/18 00:00 02/21/18 05:59 01/23/18 05:54 Metoprolol Tartrate (Lopressor) 25 mg Q12HR ORAL 01/23/18 09:00 02/22/18 08:59 Pantoprazole (Protonix) 40 mg DAILY IVP 01/22/18 09:00 02/21/18 08:59 Sodium 1,000 ml @ 60 mls/hr [id number] IV 01/23/18 19:30 02/22/18 19:29 01/23/18 01:51 Assessment/Plan Assessment/Plan (1) Multiple joint pain (2) Multiple joint OA (3) AMS (4) Muscle spasm (5) Cervical DDD (6) Cervical Spondylosis (7) Cervical Radiculopathy (8) Lumbar DDD (9) Lumbar Spondylosis (10) Lumbar Radiculopathy seen dictated Alex Mclean Jan 23, 2018 07:59
[2018-01-23] MEDS ORDERED: Methocarbamol 500mg tab ORAL PRN ×2 (08:45→18:37)
[2018-01-23] MEDS ORDERED: Metoprolol 25mg tab ORAL SCH ×2 (09:00→21:00)
[2018-01-23] MEDS: Aspirin Baby 81mg ORAL SCH (09:06)
[2018-01-23] MEDS: Pantoprazole Inj IVP SCH (09:07)
[2018-01-23] MEDS: cefTRIAXone 1 GM in D5W 55 ML IVPB SCH (09:08)
[2018-01-23] MEDS: HYDROcodone/Acetamin 10/325 tab ORAL PRN (09:09)
[2018-01-23] MEDS: Heparin 5000 units/ml inj SUBQ SCH ×2 (09:14→21:38)
--- NOTE | 2018-01-23 10:55 | History and Physical Report ---
DATE OF ADMISSION: 01/21/2018 REASON FOR ADMISSION: Prescription drug overdose. HISTORY OF PRESENT ILLNESS: This is a 67-year-old male, who was noted to be increasingly altered, withdrawn, and lethargic. He took an unknown amount of medications. He states that he took his medications to treat his pain, but did not attempt to hurt himself. He was notably lethargic and brought to the emergency room and also was found to be bradycardic with uncontrolled blood pressure reading. Subsequent toxicology report was positive for baclofen. PAST MEDICAL HISTORY: Hypertension, coronary artery disease, history of coronary stent, history of spinal cord injury, chronic pain, and hypothyroidism. ALLERGIES: None. FAMILY HISTORY: Noncontributory. SOCIAL HISTORY: Negative for smoking, alcohol, or substance abuse. MEDICATIONS: Reviewed and reconciled. REVIEW OF SYSTEMS: Otherwise cannot be reliably obtained from the patient due to his altered mental state. PHYSICAL EXAMINATION: GENERAL: Ill-appearing, older than his age, alert and responsive, but only with minimal attention span. VITAL SIGNS: Afebrile. Blood pressure readings are quite labile as noted in the medical record. Heart rate in the 30-50 range. Respiratory rate 16 and unlabored. HEENT: Pupils are reactive. Oropharynx is clear. NECK: Supple. LUNGS: Clear. CARDIAC: Regular rhythm. Slow rate. Normal S1, S2 with no murmur. ABDOMEN: Soft, nontender. EXTREMITIES: No clubbing, cyanosis, or edema. NEUROLOGIC: Reveals no focal deficits. Symmetric weakness of the legs. LABORATORY AND DIAGNOSTIC DATA: White count 7, hemoglobin 13. Sodium 147, potassium 3.5, chloride 110, bicarbonate 31, BUN 13, creatinine 1.1. Liver function normal. Troponin 0.013. TSH 0.44. Toxicology screen is negative. Chest x-ray with no acute process. IMPRESSION: 1. Baclofen overdose. 2. Chronic pain due to spinal cord injury. 3. Bradyarrhythmia, likely due to metoprolol overdose. 4. Hypertensive urgency. 5. History of coronary stent. 6. Dehydration. 7. Hypernatremia. 8. Metabolic encephalopathy. PLAN: 1. ICU monitoring. 2. Consider dobutamine for symptomatic bradycardia and external pacemaker pads at bedside. 3. Hypotonic IV fluids. 4. Limited pain medications. 5. Hydralazine for blood pressure management. 6. DVT prophylaxis. 7. Psychiatric consultation. Mukesh Chow M.D. DR: WILIAN JOB#: [id number] CC:
--- NOTE | 2018-01-23 10:58 | Progress Note ---
DATE: 01/22/2018 CARDIOLOGY PROGRESS NOTE SUBJECTIVE: The patient remains in the intensive care unit. Condition remains critical. Prognosis remains guarded. The patient's blood pressure remains quite tenuous and at times over 200 systolic and over 110 diastolic with increasing doses of medications being given. The patient's family members are at bedside and hospitalization. The patient is continuing to ask for baclofen even though he ovedosed on it two days ago albeit unintentionally. OBJECTIVE: VITAL SIGNS: Blood pressure is 190/110, pulse 92, respirations 17, and afebrile. NECK: With limited mobility. Jugular venous pressure normal. LUNGS: Clear. CARDIAC: Regular rhythm and rate. Normal S1, S2 with a fourth heart sound. ABDOMEN: Soft, nontender. EXTREMITIES: No edema. LABORATORY DATA: White count 7, hemoglobin 14. Sodium 145, potassium 3.7, BUN 10 and creatinine 1.1. Lactic acid 1.5. Albumin 3.1. TSH normal. IMPRESSION: 1. Baclofen overdose, metoprolol overdose. 2. Sinus bradycardia, resolved with resolution of metoprolol overdose. 3. Dehydration, hypernatremia. 4. Hyperchloremia. 5. Hypovolemia. 6. Mild protein-calorie malnutrition. 7. History of spinal cord injury with chronic pain and limited mobility. PLAN: 1. Hypotonic IV fluids. 2. Stepwise titration of antihypertensives. 3. Avoid baclofen. 4. Avoid oversedation. 5. Mobilization will be initiated. 6. Protein supplement. 7. Stress ulcer prophylaxis. 8. DVT prophylaxis. Mukesh Chow M.D. DR: DOLLY JOB#: [id number] CC:
[2018-01-23] MEDS ORDERED: DULoxetine 30mg cap ORAL SCH (13:00)
--- NOTE | 2018-01-23 16:25 | General Progress Note ---
Assessment/Plan Assessment/Plan MDD Pain syndrome -Cymbalta 30mg po qam -Neurontin 600mg tid Subjective Date patient seen: Jan 23, 2018 Neurologic/Psychiatric: Reports: anxiety, depressed, emotional problems Allergies: Coded Allergies: No Known Allergies (Unverified , 05/06/15) Subjective the pt stated that he has pain and anxiety. He becomes depressed Objective Last 24 Hour Vital Signs Date Time Temp Pulse Resp B/P (MAP) Pulse Ox O2 Delivery O2 Flow Rate FiO2 01/23/18 15:00 76 18 162/78 (106) 97 01/23/18 14:14 164/84 01/23/18 14:00 74 18 164/84 (110) 97 01/23/18 13:00 73 17 163/80 (107) 97 01/23/18 12:00 Room Air 01/23/18 12:00 98.8 76 20 170/79 (109) 97 98.8 01/23/18 12:00 87 01/23/18 11:00 66 15 168/80 (109) 97 01/23/18 10:00 70 15 154/82 (106) 97 01/23/18 09:07 89 181/90 01/23/18 09:07 89 181/90 01/23/18 09:00 104 19 180/87 (118) 97 01/23/18 08:00 Room Air 01/23/18 08:00 98.6 91 18 167/78 (107) 97 98.6 01/23/18 08:00 87 01/23/18 07:00 96 17 157/76 (103) 97 01/23/18 06:00 103 19 187/81 (116) 97 01/23/18 05:54 171/87 01/23/18 05:00 85 14 171/87 (115) 97 01/23/18 04:00 90 01/23/18 04:00 98.8 90 14 156/92 (113) 97 98.8 01/23/18 04:00 Room Air 01/23/18 03:05 98.3 01/23/18 03:00 101 14 178/84 (115) 97 01/23/18 02:02 98.3 01/23/18 02:00 97 18 183/83 (116) 97 01/23/18 01:00 100 16 162/86 (111) 97 01/23/18 00:00 126 01/23/18 00:00 98.3 126 25 178/105 (129) 97 98.3 01/23/18 00:00 Room Air 01/22/18 23:00 99 15 160/75 (103) 97 01/22/18 22:01 198/104 01/22/18 22:00 94 19 169/82 (111) 96 01/22/18 21:58 97.6 01/22/18 21:00 120 21 198/104 (135) 97 01/22/18 20:45 184/105 01/22/18 20:00 Room Air 01/22/18 20:00 92 01/22/18 20:00 98.6 92 17 190/110 (136) 95 98.6 01/22/18 19:00 90 14 171/83 (112) 97 01/22/18 18:00 92 13 156/85 (108) 97 01/22/18 17:00 90 14 168/75 (106) 97 Intake and Output 01/22/18 01/23/18 19:00 07:00 Intake Total 1675 ml 680 ml Output Total 1450 ml 930 ml Balance 225 ml -250 ml Intake Oral 410 ml 80 ml IV Total 1255 ml 600 ml Other 10 ml Output Urine Total 1450 ml 930 ml Laboratory Tests 01/23/18 05:16: White Blood Count 7.5, Red Blood Count 5.09, Hemoglobin 14.8, Hematocrit 45.0, Mean Corpuscular Volume 88, Mean Corpuscular Hemoglobin 29.1, Mean Corpuscular Hemoglobin Concent 32.9, Red Cell Distribution Width 14.7, Platelet Count 310, Mean Platelet Volume 6.6, Neutrophils (%) (Auto) 53.3, Lymphocytes (%) (Auto) 37.1, Monocytes (%) (Auto) 7.9, Eosinophils (%) (Auto) 0.8, Basophils (%) (Auto ) 0.9, Sodium Level 140, Potassium Level 4.0, Chloride Level 107, Carbon Dioxide Level 24, Anion Gap 9, Blood Urea Nitrogen 8, Creatinine 1.0, Estimat Glomerular Filtration Rate > 60, Glucose Level 101, Calcium Level 8.2L, Magnesium Level 2.0, Total Bilirubin 0.7, Aspartate Amino Transf (AST/SGOT) 14L , Alanine Aminotransferase (ALT/SGPT) 11L, Alkaline Phosphatase 66, Pro-B-Type Natriuretic Peptide 1350H, Total Protein 6.3L, Albumin 2.9L, Globulin 3.4, Albumin/Globulin Ratio 0.9L, Triglycerides Level 67, Cholesterol Level 136, LDL Cholesterol 92, HDL Cholesterol 44, Cholesterol/HDL Ratio 3.1L Height (Feet): 5 Height (Inches): 9.00 Weight (Pounds): 192 General Appearance: no apparent distress, alert Neurologic: oriented x 3, responsive, depressed affect Cathy Chung MD Jan 23, 2018 16:25
--- NOTE | 2018-01-23 17:02 | Consultation ---
DATE OF CONSULTATION: 01/23/2018 PAIN MANAGEMENT CONSULTATION CONSULTING PHYSICIAN: Imer Vargas M.D. REFERRING PHYSICIAN: Mukesh Chow M.D. PHYSICIAN [employer] SPECIALIST: Eduardo Fabian CHIEF COMPLAINT: Generalized body pain. HISTORY OF PRESENT ILLNESS: This is a 67-year-old male, who is being seen in the ICU floor of [facility] for initial comprehensive pain management consultation. The patient was admitted under the care of Dr. Chow due to accidental overdose of baclofen pills. However, reported that he had taken the pills and then automatically vomited all up and had been admitted to the ER where he was lethargic and altered mental status and then was transferred to the ICU complaining of generalized body pain in his joints, in his neck and lower back. He reports that he had a neck surgery in the past. Does not know the exact date and also having low back pain as well, worse with movement, having trouble with walking, and reports that he walks with a walker. As an outpatient, the patient is being seen by Dr. Sascha Rosen. Being placed on tramadol 50 mg 120 tablets and [place] 10/325, 120 tablets as well monthly and with this, he has been complaining of chronic pain. We were consulted so that the patient would have adequate pain control while here in the hospital. PAST MEDICAL HISTORY: High blood pressure, coronary artery disease, history of myocardial infarction, weakness, and bradycardia. PAST SURGICAL HISTORY: Cervical surgery and left knee replacement. MEDICATIONS: Aspirin, Lipitor, baclofen, Keflex, ciprofloxacin, Plavix, clopidogrel, docusate, Lasix, hydralazine, Toprol, metoprolol, nitrofurantoin, Lyrica, [place], and Ultram ALLERGIES: No known drug allergies. SOCIAL HISTORY: Denies smoking tobacco, drinking alcohol, or IV drug abuse. REVIEW OF SYSTEMS: Denies rash, fever, chills, sweating, dizziness, drowsiness, blurred vision, sore throat, or change in weight. No shortness of breath or chest pain. No nausea, vomiting, diarrhea, or blood in the stool or urine. No bowel or bladder incontinence. No dysuria. He is complaining of generalized body pain. PHYSICAL EXAMINATION: GENERAL: Alert, awake, and oriented. VITAL SIGNS: Blood pressure is 187/81, heart rate is 103, oxygen saturation 98%, respiratory rate 19, and temperature is 98.2 degrees Fahrenheit. HEENT: PERRLA. NECK: Range of motion is decreased due to the patient's pain and condition. No tenderness to paracervical muscles. No adenopathy. LUNGS: Decreased breath sounds bilaterally. HEART: S1 and S2 regular. ABDOMEN: Benign. BACK: Range of motion is decreased in flexion and extension with tenderness to paraspinal muscles. No tenderness to trapezius or rhomboid muscles. EXTREMITIES: Upper and lower extremity motion is decreased due to the patient's pain and condition. No cyanosis. No clubbing. Sensory is intact. Reflexes are not obtainable. No adenopathy. ASSESSMENT AND PLAN: This is a 67-year-old male with multiple joint osteoarthritis, multiple joint pain, altered mental status, muscle spasm, cervical and lumbar degenerative disk disease, cervical lumbar spondylosis, and cervical and lumbar radiculopathy. The patient will be continued on [place] 5/325 one tablet every 4 hours as needed for mild pain and [place] 10/325, one tablet every 4 hours as needed for severe pain. We will start the patient on Neurontin 100 mg tablet 3 times a day as well as Robaxin 500 mg tablet every 8 hours as needed for muscle spasm. We will order an x-ray of the cervical and lumbar spine to rule out any further pathology in the neck and lower back. The patient was discussed with Dr. Vargas and Dr. Vargas concurred. We will follow the patient. Thank you very much for the courtesy of this consultation. Imer Vargas M.D. SHEA Fabian DR: CHECO JOB#: [id number] CC:
[2018-01-23] MEDS ORDERED: Norco 5mg/325mg tab ORAL PRN (18:37)
[2018-01-23] MEDS ORDERED: 1/2NS w/KCl 20mEq 1000ml 1,000 ML IV SCH (19:30)
[2018-01-23] MEDS ORDERED: HydrALAZINE 25mg tab ORAL PRN (21:30)
[2018-01-24 00:19] VITALS: BP 136/73
[2018-01-24 04:00] VITALS: BP 144/74
--- NOTE | 2018-01-24 05:16 | Progress Note ---
DATE: 01/23/2018 CARDIOLOGY AND INTERNAL MEDICINE PROGRESS NOTE SUBJECTIVE: The patient has been seen by pain management and was started on muscle relaxants and Neurontin. The patient's pain is under better control. He has no chest pain and no shortness of breath. He was seen in psychiatric followup and it was felt not to be suicidal and that his overdose was accidental. OBJECTIVE: VITAL SIGNS: Blood pressure 152/79, pulse 76, respirations 19, and temperature 99 degrees. LUNGS: Diminished breath sounds. CARDIAC: Regular rhythm and rate. Normal S1 and S2. ABDOMEN: Soft. EXTREMITIES: No edema. LABORATORY DATA: White count 7.5 and hemoglobin 14.8. Potassium 4. Pro-natriuretic peptide 1350. BUN 8, creatinine 1, and albumin 2.9. Total cholesterol 136. IMPRESSION: 1. Unintentional baclofen overdose. 2. Malignant hypertension, resolved. 3. Sinus bradycardia, recovered. 4. Dehydration, hypernatremia, hyperchloremia, and hypovolemia, corrected. 5. Mild protein-calorie malnutrition. 6. Spinal cord injury with acute on chronic pain, improving. PLAN: 1. Continue titration of antihypertensives, narcotic analgesics. 2. Await urine culture. 3. Discontinue IV fluids. 4. Empiric antibiotics. 5. DVT prophylaxis. Mukesh Chow M.D. : BRANT JOB#: [id number] CC:
[2018-01-24] MEDS: HydrALAZINE 50mg tab ORAL SCH ×3 (05:49→21:18)
--- NOTE | 2018-01-24 08:02 | General Progress Note ---
Assessment/Plan Assessment/Plan (1) Multiple joint pain (2) Multiple joint OA (3) AMS (4) Muscle spasm (5) Cervical DDD (6) Cervical Spondylosis (7) Cervical Radiculopathy (8) Lumbar DDD (9) Lumbar Spondylosis (10) Lumbar Radiculopathy Patient to be continued on [place] and Neurontin will be increased to 300mg TID D/w Dr. Vargas and he concurred. Subjective Date patient seen: Jan 24, 2018 Time patient seen: 07:00 - am Allergies: Coded Allergies: No Known Allergies (Unverified , 05/06/15) Subjective REVIEW OF SYSTEMS: Denies rash, fever, chills, sweating, dizziness, drowsiness, blurred vision, sore throat, or change in weight. No shortness of breath or chest pain. No nausea, vomiting, diarrhea, or blood in the stool or urine. No bowel or bladder incontinence. No SUBJECTIVE: Patient is in bed and reports that his pain is unchanged. It has been tolerated on the [place]. Going to have Xrays done today. D/w patient about increasing the Neurontin he understands. Objective Last 24 Hour Vital Signs Date Time Temp Pulse Resp B/P (MAP) Pulse Ox O2 Delivery O2 Flow Rate FiO2 01/24/18 05:49 144/74 01/24/18 04:00 56 01/24/18 04:00 97.5 72 18 144/74 (97) 96 97.5 72 72 01/24/18 00:19 98.8 68 18 136/73 (94) 94 98.8 67 68 01/24/18 00:00 62 01/23/18 21:37 85 152/79 01/23/18 21:37 152/79 01/23/18 21:00 Room Air 01/23/18 20:00 85 01/23/18 19:58 99.0 76 19 152/79 (103) 96 99.0 76 76 01/23/18 17:00 109 22 133/69 (90) 97 01/23/18 16:00 98.7 124 16 127/67 (87) 97 98.7 01/23/18 16:00 87 01/23/18 16:00 Room Air 01/23/18 15:00 76 18 162/78 (106) 97 01/23/18 14:14 164/84 01/23/18 14:00 74 18 164/84 (110) 97 01/23/18 13:00 73 17 163/80 (107) 97 01/23/18 12:00 Room Air 01/23/18 12:00 98.8 76 20 170/79 (109) 97 98.8 01/23/18 12:00 87 01/23/18 11:00 66 15 168/80 (109) 97 01/23/18 10:00 70 15 154/82 (106) 97 01/23/18 09:07 89 181/90 01/23/18 09:07 89 181/90 01/23/18 09:00 104 19 180/87 (118) 97 Intake and Output 01/23/18 01/24/18 19:00 07:00 Intake Total 920 ml Output Total 680 ml 1100 ml Balance 240 ml -1100 ml Intake Oral 150 ml IV Total 770 ml Output Urine Total 680 ml 1100 ml # Bowel Movements 1 Height (Feet): 5 Height (Inches): 9.00 Weight (Pounds): 190 Objective GENERAL: Alert, awake, and oriented. LUNGS: Decreased breath sounds bilaterally. HEART: S1 and S2 regular. ABDOMEN: Benign. EXTREMITIES: No cyanosis. No clubbing. NEURO: No changes. Alex Mclean Jan 24, 2018 08:02
[2018-01-24 08:52] VITALS: BP 138/68
[2018-01-24] MEDS: DULoxetine 30mg cap ORAL SCH (09:06)
[2018-01-24] MEDS: Aspirin Baby 81mg ORAL SCH (09:06)
[2018-01-24] MEDS: Pantoprazole Inj IVP SCH (09:06)
[2018-01-24] MEDS: Metoprolol 25mg tab ORAL SCH ×2 (09:06→21:18)
[2018-01-24] MEDS: Heparin 5000 units/ml inj SUBQ SCH ×2 (09:07→21:19)
[2018-01-24] MEDS ORDERED: cefTRIAXone 1 GM in D5W 55 ML IVPB SCH (10:00)
[2018-01-24 12:00] VITALS: BP 139/68
--- NOTE | 2018-01-24 13:40 | Diagnostic Imaging Report ---
Indication: Pain Technique: 4 views of the lumbar spine Comparison: None Findings:Exam is somewhat limited, as considerable bowel gas limits visualization on the AP and oblique views. Bony alignment is normal. Vertebral body heights are preserved. There is degenerative narrowing of the lumbosacral junction. The remaining disc spaces are preserved. There are are small anterior osteophytes at multiple levels. Pedicles are intact. The facet and sacroiliac joint spaces are preserved. Impression: Degenerative changes, as described. No acute bony trauma
--- NOTE | 2018-01-24 13:43 | Diagnostic Imaging Report ---
Indication: Neck pain Technique: 4 or 5 views of the cervical spine Comparison: none Findings: Bony alignment is normal. No prevertebral soft tissue swelling. There is posterior fusion hardware seen fusing C3, C4, and C5, and laminectomies at the same level. There is ankylosis of the C3-4, C4-5, and C5-6 discs and facets there is degenerative narrowing of the C2-3 and C6-7 discs. There is multilevel neural foraminal stenosis noted bilaterally. No acute fractures. Impression: Postsurgical changes, as described No acute bony trauma
--- NOTE | 2018-01-24 15:48 | General Progress Note ---
Assessment/Plan Assessment/Plan MDD Pain syndrome -Cymbalta 30mg po qam -Neurontin 600mg tid Subjective Date patient seen: Jan 24, 2018 Neurologic/Psychiatric: Reports: anxiety, depressed, emotional problems Allergies: Coded Allergies: No Known Allergies (Unverified , 05/06/15) Subjective the pt stated that he has pain Objective Last 24 Hour Vital Signs Date Time Temp Pulse Resp B/P (MAP) Pulse Ox O2 Delivery O2 Flow Rate FiO2 01/24/18 13:33 139/68 01/24/18 12:00 98.0 70 18 139/68 (91) 95 98.0 72 01/24/18 12:00 64 01/24/18 10:14 Room Air 01/24/18 09:06 72 138/68 01/24/18 09:06 72 138/68 01/24/18 09:00 Room Air 01/24/18 08:52 98.2 102 18 138/68 (91) 95 98.2 72 01/24/18 08:00 87 01/24/18 07:51 98.2 01/24/18 05:49 144/74 01/24/18 04:00 56 01/24/18 04:00 97.5 72 18 144/74 (97) 96 97.5 72 72 01/24/18 00:19 98.8 68 18 136/73 (94) 94 98.8 67 68 01/24/18 00:00 62 01/23/18 21:37 85 152/79 01/23/18 21:37 152/79 01/23/18 21:00 Room Air 01/23/18 20:00 85 01/23/18 19:58 99.0 76 19 152/79 (103) 96 99.0 76 76 01/23/18 17:00 109 22 133/69 (90) 97 01/23/18 16:00 98.7 124 16 127/67 (87) 97 98.7 01/23/18 16:00 87 01/23/18 16:00 Room Air Intake and Output 01/23/18 01/24/18 19:00 07:00 Intake Total 920 ml Output Total 680 ml 1100 ml Balance 240 ml -1100 ml Intake Oral 150 ml IV Total 770 ml Output Urine Total 680 ml 1100 ml # Bowel Movements 1 Height (Feet): 5 Height (Inches): 9.00 Weight (Pounds): 190 General Appearance: alert Neurologic: oriented x 3, responsive, depressed affect Cathy Chung MD Jan 24, 2018 15:48
[2018-01-24 16:00] VITALS: BP 132/68
[2018-01-24 20:00] VITALS: BP 137/81
[2018-01-24] MEDS ORDERED: NS 275ml ONE (20:17)
[2018-01-24] MEDS ORDERED: Tubing IV Secondary IV ONE ×2 (20:17→21:33)
[2018-01-24 23:47] LABS: BILIRUBIN, URINE NEGATIVE (NEGATIVE); COLOR,URINE PALE YELLOW; GLUCOSE, URINE (UA) NEGATIVE (NEGATIVE); KETONES,URINE NEGATIVE (NEGATIVE); LEUKOCYTE ESTERASE ,URINE 3+ (NEGATIVE); NITRITE,URINE POSITIVE (NEGATIVE); PH,URINE 6 (4.5-8.0); PROTEIN,URINE 1+ (NEGATIVE); UROBILINOGEN,URINE NORMAL MG/DL (0.0-1.0)
[2018-01-24 23:57] LABS: APPEARANCE,URINE SLIGHTLY CLOUDY
[2018-01-25] VITALS: BP 149/84
--- NOTE | 2018-01-25 01:00 | Progress Note ---
DATE: 01/24/2018 INTERNAL MEDICINE PROGRESS NOTE SUBJECTIVE: Some cough. No chest pain. No shortness of breath. OBJECTIVE: VITAL SIGNS: Blood pressure 144/74, pulse 72, respiratory rate 18 and afebrile. LUNGS: Clear. CARDIAC: Regular. Normal S1 and S2. ABDOMEN: Soft. EXTREMITIES: No edema. IMPRESSION: 1. Spinal cord injury. 2. Baclofen ingestion and metoprolol overdose. 3. Chronic pain. 4. Urinary tract infection. 5. Sinus bradycardia, resolved. 6. Malignant hypertension, corrected. 7. Hypertensive heart disease with improving blood pressure control. PLAN: 1. Antimicrobials. 2. Titrate antihypertensives. 3. Titrating analgesic, narcotic regimen. 4. Discharge planning. 5. Awaiting final cultures. Mukesh Chow M.D. DR: MALENA JOB#: [id number] CC:
[2018-01-25] MEDS: Piperacillin/Tazobactam 3.375 GM in D5W 110 ML IVPB SCH ×3 (01:20→17:24)
[2018-01-25 04:00] VITALS: BP 153/74
[2018-01-25] MEDS: HydrALAZINE 50mg tab ORAL SCH ×3 (05:07→21:32)
[2018-01-25 06:29] LABS: BASOPHILS % (AUTO) 0.7 % (0.0-2.0); EOSINOPHILS % (AUTO) 3.1 % (0.0-3.0); HEMATOCRIT 44.4 % (42.0-52.0); LYMPHOCYTES % (AUTO) 41.6 % (20.0-45.0); MEAN CORPUSCULAR VOLUME 90 FL (80-99); MONOCYTES % (AUTO) 8.4 % (1.0-10.0); NEUTROPHILS % (AUTO) 46.2 % (45.0-75.0); PLATELET COUNT 260 K/UL (150-450); RED BLOOD COUNT 4.93 M/UL (4.70-6.10); RED CELL DISTRIBUTION WIDTH 15.5 % (11.6-14.8); WHITE BLOOD COUNT 6.8 K/UL (4.8-10.8)
[2018-01-25 07:30] LABS: ALANINE AMINOTRANSFERASE 12 U/L (12-78); ALBUMIN 2.9 G/DL (3.4-5.0); ALBUMIN/GLOBULIN RATIO 0.8 (1.0-2.7); ALKALINE PHOSPHATASE 62 U/L (46-116); ANION GAP 7 mmol/L (5-15); ASPARTATE AMINO TRANSFERASE 19 U/L (15-37); BILIRUBIN,TOTAL 0.8 MG/DL (0.2-1.0); BLOOD UREA NITROGEN 15 mg/dL (7-18); CALCIUM 8.9 MG/DL (8.5-10.1); CARBON DIOXIDE 25 MMOL/L (21-32); CHLORIDE 109 MMOL/L (98-107); CREATININE 1.2 MG/DL (0.55-1.30); POTASSIUM 4.8 MMOL/L (3.5-5.1); SODIUM 141 MMOL/L (136-145)
[2018-01-25 08:00] VITALS: BP 132/64
--- NOTE | 2018-01-25 08:30 | General Progress Note ---
Assessment/Plan Assessment/Plan (1) Multiple joint pain (2) Multiple joint OA (3) AMS (4) Muscle spasm (5) Cervical DDD (6) Cervical Spondylosis (7) Cervical Radiculopathy (8) Lumbar DDD (9) Lumbar Spondylosis (10) Lumbar Radiculopathy Patient to be continued on [place] and Neurontin D/w Dr. Vargas and he concurred. Subjective Date patient seen: Jan 25, 2018 Time patient seen: 08:00 - am Allergies: Coded Allergies: No Known Allergies (Unverified , 05/06/15) Subjective REVIEW OF SYSTEMS: Denies rash, fever, chills, sweating, dizziness, drowsiness, blurred vision, sore throat, or change in weight. No shortness of breath or chest pain. No nausea, vomiting, diarrhea, or blood in the stool or urine. No bowel or bladder incontinence. No SUBJECTIVE: Patient is doing well and feeling better would like to go home once discharged by [facility]. Has used one tab of [place] 5/325mg yesterday. Xrays were reviewed. Objective Last 24 Hour Vital Signs Date Time Temp Pulse Resp B/P (MAP) Pulse Ox O2 Delivery O2 Flow Rate FiO2 01/25/18 05:07 153/74 01/25/18 04:00 61 01/25/18 04:00 97.9 63 20 153/74 (100) 98 97.9 01/25/18 00:00 52 01/25/18 00:00 98.2 55 20 149/84 (105) 95 98.2 01/24/18 21:18 71 137/81 01/24/18 21:18 137/81 01/24/18 21:00 Room Air 01/24/18 20:00 97.7 64 20 137/81 (99) 95 97.7 01/24/18 20:00 71 01/24/18 16:00 57 01/24/18 16:00 97.7 67 17 132/68 (89) 95 97.7 64 01/24/18 13:33 139/68 01/24/18 12:00 98.0 70 18 139/68 (91) 95 98.0 72 01/24/18 12:00 64 01/24/18 10:14 Room Air 01/24/18 09:06 72 138/68 01/24/18 09:06 72 138/68 01/24/18 09:00 Room Air 01/24/18 08:52 98.2 102 18 138/68 (91) 95 98.2 72 Intake and Output 01/24/18 01/25/18 19:00 07:00 Intake Total 120 ml Output Total 400 ml 550 ml Balance -400 ml -430 ml Intake Oral 120 ml Output Urine Total 400 ml 550 ml Laboratory Tests 01/24/18 22:00: Urine Color Pale yellow, Urine Appearance Slightly cloudy, Urine pH 6, Urine Specific [place] 1.020, Urine Protein 1+H, Urine Glucose (UA) Negative, Urine Ketones Negative, Urine Occult Blood Negative, Urine Nitrite PositiveH, Urine Bilirubin Negative, Urine Urobilinogen Normal, Urine Leukocyte Esterase 3+H, Urine RBC 0-2H, Urine WBC TntcH, Urine Squamous Epithelial Cells None, Urine Bacteria ManyH 01/25/18 05:10: White Blood Count 6.8, Red Blood Count 4.93, Hemoglobin 14.0L, Hematocrit 44.4, Mean Corpuscular Volume 90, Mean Corpuscular Hemoglobin 28.4, Mean Corpuscular Hemoglobin Concent 31.6L, Red Cell Distribution Width 15.5H, Platelet Count 260 , Mean Platelet Volume 6.4L, Neutrophils (%) (Auto) 46.2, Lymphocytes (%) (Auto ) 41.6, Monocytes (%) (Auto) 8.4, Eosinophils (%) (Auto) 3.1H, Basophils (%) ( Auto) 0.7, Sodium Level 141, Potassium Level 4.8, Chloride Level 109H, Carbon Dioxide Level 25, Anion Gap 7, Blood Urea Nitrogen 15, Creatinine 1.2, Estimat Glomerular Filtration Rate > 60, Glucose Level 107H, Calcium Level 8.9, Magnesium Level 2.3, Total Bilirubin 0.8, Aspartate Amino Transf (AST/SGOT) 19, Alanine Aminotransferase (ALT/SGPT) 12, Alkaline Phosphatase 62, Pro-B-Type Natriuretic Peptide 222H, Total Protein 6.5, Albumin 2.9L, Globulin 3.6, Albumin /Globulin Ratio 0.8L Height (Feet): 5 Height (Inches): 9.00 Weight (Pounds): 189 Objective GENERAL: Alert, awake, and oriented. LUNGS: Decreased breath sounds bilaterally. HEART: S1 and S2 regular. ABDOMEN: Benign. EXTREMITIES: No cyanosis. No clubbing. NEURO: No changes. Procedure: XRAY C Spine Complete Findings: Bony alignment is normal. No prevertebral soft tissue swelling. There is posterior fusion hardware seen fusing C3, C4, and C5, and laminectomies at the same level. There is ankylosis of the C3-4, C4-5, and C5-6 discs and facets there is degenerative narrowing of the C2-3 and C6-7 discs. There is multilevel neural foraminal stenosis noted bilaterally. No acute fractures. Impression: Postsurgical changes, as described No acute bony trauma Procedure: XRAY L Spine Min 4v Findings:Exam is somewhat limited, as considerable bowel gas limits visualization on the AP and oblique views. Bony alignment is normal. Vertebral body heights are preserved. There is degenerative narrowing of the lumbosacral junction. The remaining disc spaces are preserved. There are are small anterior osteophytes at multiple levels. Pedicles are intact. The facet and sacroiliac joint spaces are preserved. Impression: Degenerative changes, as described. No acute bony trauma Alex Mclean Jan 25, 2018 08:30
[2018-01-25] MEDS: Aspirin Baby 81mg ORAL SCH (09:13)
[2018-01-25] MEDS: DULoxetine 30mg cap ORAL SCH (09:13)
[2018-01-25] MEDS: Metoprolol 25mg tab ORAL SCH ×2 (09:13→21:32)
[2018-01-25] MEDS: Pantoprazole Inj IVP SCH (09:14)
[2018-01-25] MEDS: Heparin 5000 units/ml inj SUBQ SCH ×2 (09:17→21:33)
[2018-01-25 12:00] VITALS: BP 142/82
[2018-01-25 16:00] VITALS: BP 147/75
[2018-01-25 20:00] VITALS: BP 139/66
--- NOTE | 2018-01-25 20:00 | General Progress Note ---
Assessment/Plan Status: stable, progressing Assessment/Plan MDD Pain syndrome -Cymbalta 30mg po qam -Neurontin 600mg tid Subjective Date patient seen: Jan 25, 2018 Neurologic/Psychiatric: Reports: anxiety, depressed, emotional problems Allergies: Coded Allergies: No Known Allergies (Unverified , 05/06/15) Subjective the pt has anxiety, he is illogical and has poor insight perseverates that he wanted to leave ama unable to understand that he needs antibiotics Objective Last 24 Hour Vital Signs Date Time Temp Pulse Resp B/P (MAP) Pulse Ox O2 Delivery O2 Flow Rate FiO2 01/25/18 16:00 71 01/25/18 16:00 98.7 68 20 147/75 (99) 95 98.7 01/25/18 13:04 142/82 01/25/18 12:00 57 01/25/18 12:00 98.1 60 20 142/82 (102) 95 98.1 01/25/18 09:13 73 132/64 01/25/18 09:13 73 132/64 01/25/18 09:00 Room Air 01/25/18 08:00 64 01/25/18 08:00 98.1 73 20 132/64 (86) 95 98.1 01/25/18 05:07 153/74 01/25/18 04:00 61 01/25/18 04:00 97.9 63 20 153/74 (100) 98 97.9 01/25/18 00:00 52 01/25/18 00:00 98.2 55 20 149/84 (105) 95 98.2 01/24/18 21:18 71 137/81 01/24/18 21:18 137/81 01/24/18 21:00 Room Air 01/24/18 20:00 97.7 64 20 137/81 (99) 95 97.7 01/24/18 20:00 71 Intake and Output 01/24/18 01/25/18 19:00 07:00 Intake Total 120 ml Output Total 400 ml 550 ml Balance -400 ml -430 ml Intake Oral 120 ml Output Urine Total 400 ml 550 ml Laboratory Tests 01/24/18 22:00: Urine Color Pale yellow, Urine Appearance Slightly cloudy, Urine pH 6, Urine Specific [place] 1.020, Urine Protein 1+H, Urine Glucose (UA) Negative, Urine Ketones Negative, Urine Occult Blood Negative, Urine Nitrite PositiveH, Urine Bilirubin Negative, Urine Urobilinogen Normal, Urine Leukocyte Esterase 3+H, Urine RBC 0-2H, Urine WBC TntcH, Urine Squamous Epithelial Cells None, Urine Bacteria ManyH 01/25/18 05:10: White Blood Count 6.8, Red Blood Count 4.93, Hemoglobin 14.0L, Hematocrit 44.4, Mean Corpuscular Volume 90, Mean Corpuscular Hemoglobin 28.4, Mean Corpuscular Hemoglobin Concent 31.6L, Red Cell Distribution Width 15.5H, Platelet Count 260 , Mean Platelet Volume 6.4L, Neutrophils (%) (Auto) 46.2, Lymphocytes (%) (Auto ) 41.6, Monocytes (%) (Auto) 8.4, Eosinophils (%) (Auto) 3.1H, Basophils (%) ( Auto) 0.7, Sodium Level 141, Potassium Level 4.8, Chloride Level 109H, Carbon Dioxide Level 25, Anion Gap 7, Blood Urea Nitrogen 15, Creatinine 1.2, Estimat Glomerular Filtration Rate > 60, Glucose Level 107H, Calcium Level 8.9, Magnesium Level 2.3, Total Bilirubin 0.8, Aspartate Amino Transf (AST/SGOT) 19, Alanine Aminotransferase (ALT/SGPT) 12, Alkaline Phosphatase 62, Pro-B-Type Natriuretic Peptide 222H, Total Protein 6.5, Albumin 2.9L, Globulin 3.6, Albumin /Globulin Ratio 0.8L Height (Feet): 5 Height (Inches): 9.00 Weight (Pounds): 189 General Appearance: no apparent distress, alert Neurologic: oriented x 3, responsive, depressed affect Cathy Chung MD Jan 25, 2018 20:00
[2018-01-26] VITALS: BP 144/74
[2018-01-26] MEDS: Piperacillin/Tazobactam 3.375 GM in D5W 110 ML IVPB SCH ×3 (02:16→17:16)
--- NOTE | 2018-01-26 02:30 | Progress Note ---
DATE: 01/25/2018 CARDIOLOGY/INTERNAL MEDICINE PROGRESS NOTE SUBJECTIVE: The patient is anxious to go home. He has difficulty understanding the need for his medical care. He has had new urine culture that revealed a multi-drug resistant strain of Pseudomonas aeruginosa and his antibiotic therapy was adjusted late last night accordingly. OBJECTIVE: VITAL SIGNS: Blood pressure 142/82, pulse 57, and respiratory rate 20. LUNGS: Clear. CARDIAC: Regular. Normal S1, S2 with a fourth heart sound. ABDOMEN: Soft. EXTREMITIES: No edema. IMPRESSION: 1. Pseudomonas urinary tract infection. 2. Unintentional drug overdose. 3. Resolved bradycardia. 4. Hypertensive urgency, recovered. 5. Spinal cord injury with chronic pain. 6. Acute on chronic diastolic CHF. PLAN: 1. IV antibiotics. 2. Infectious Disease consultation. 3. Pain control. 4. Titrate antihypertensive. 5. Reassess for diuresis. Mukesh Chow M.D. DR: Neetu JOB#: [id number] CC: PRASHANTH
[2018-01-26 04:00] VITALS: BP 113/80
[2018-01-26] MEDS: HydrALAZINE 50mg tab ORAL SCH ×3 (05:27→23:44)
[2018-01-26] MEDS: HYDROcodone/Acetamin 10/325 tab ORAL PRN ×4 (06:38→21:19)
[2018-01-26 08:00] VITALS: BP 154/76
[2018-01-26] MEDS: DULoxetine 30mg cap ORAL SCH (09:07)
[2018-01-26] MEDS: Aspirin Baby 81mg ORAL SCH (09:08)
[2018-01-26] MEDS: Metoprolol 25mg tab ORAL SCH (09:09)
[2018-01-26] MEDS: Heparin 5000 units/ml inj SUBQ SCH ×2 (09:10→21:16)
--- NOTE | 2018-01-26 11:52 | General Progress Note ---
Assessment/Plan Assessment/Plan (1) Multiple joint pain (2) Multiple joint OA (3) AMS (4) Muscle spasm (5) Cervical DDD (6) Cervical Spondylosis (7) Cervical Radiculopathy (8) Lumbar DDD (9) Lumbar Spondylosis (10) Lumbar Radiculopathy Patient to be continued on [place] and Neurontin D/w Dr. Vargas and he concurred. Subjective Date patient seen: Jan 26, 2018 Time patient seen: 10:15 - am Allergies: Coded Allergies: No Known Allergies (Unverified , 05/06/15) Subjective REVIEW OF SYSTEMS: Denies rash, fever, chills, sweating, dizziness, drowsiness, blurred vision, sore throat, or change in weight. No shortness of breath or chest pain. No nausea, vomiting, diarrhea, or blood in the stool or urine. No bowel or bladder incontinence. No SUBJECTIVE: Patient is in bed with daughter at bedside. He is comfortable and has no new complaints. Pain is tolerated on the [place]. Objective Last 24 Hour Vital Signs Date Time Temp Pulse Resp B/P (MAP) Pulse Ox O2 Delivery O2 Flow Rate FiO2 01/26/18 09:09 65 154/76 01/26/18 09:09 65 154/76 01/26/18 08:00 98.2 67 18 154/76 (102) 95 98.2 01/26/18 08:00 65 01/26/18 05:27 113/80 01/26/18 04:00 98.4 64 21 113/80 (91) 95 98.4 01/26/18 04:00 68 01/26/18 00:00 98.5 70 21 144/74 (97) 94 98.5 01/26/18 00:00 62 01/25/18 21:32 58 139/66 01/25/18 21:32 139/66 01/25/18 21:00 Room Air 01/25/18 20:00 58 01/25/18 20:00 97.6 68 20 139/66 (90) 93 97.6 01/25/18 16:00 71 01/25/18 16:00 98.7 68 20 147/75 (99) 95 98.7 01/25/18 13:04 142/82 01/25/18 12:00 57 01/25/18 12:00 98.1 60 20 142/82 (102) 95 98.1 Intake and Output 01/25/18 01/26/18 19:00 07:00 Intake Total 110 ml 202.5 ml Output Total 400 ml 700 ml Balance -290 ml -497.5 ml Intake Oral 100 ml IV Total 110 ml 102.5 ml Output Urine Total 400 ml 700 ml Height (Feet): 5 Height (Inches): 9.00 Weight (Pounds): 190 Objective GENERAL: Alert, awake, and oriented. LUNGS: Decreased breath sounds bilaterally. HEART: S1 and S2 regular. ABDOMEN: Benign. EXTREMITIES: No cyanosis. No clubbing. NEURO: No changes. Procedure: XRAY C Spine Complete Findings: Bony alignment is normal. No prevertebral soft tissue swelling. There is posterior fusion hardware seen fusing C3, C4, and C5, and laminectomies at the same level. There is ankylosis of the C3-4, C4-5, and C5-6 discs and facets there is degenerative narrowing of the C2-3 and C6-7 discs. There is multilevel neural foraminal stenosis noted bilaterally. No acute fractures. Impression: Postsurgical changes, as described No acute bony trauma Procedure: XRAY L Spine Min 4v Findings:Exam is somewhat limited, as considerable bowel gas limits visualization on the AP and oblique views. Bony alignment is normal. Vertebral body heights are preserved. There is degenerative narrowing of the lumbosacral junction. The remaining disc spaces are preserved. There are are small anterior osteophytes at multiple levels. Pedicles are intact. The facet and sacroiliac joint spaces are preserved. Impression: Degenerative changes, as described. No acute bony trauma Alex Mclean Jan 26, 2018 11:52
[2018-01-26 12:00] VITALS: BP 126/69
[2018-01-26 16:00] VITALS: BP 116/69
[2018-01-26] MEDS ORDERED: Methocarbamol 500mg tab ORAL PRN (17:00)
[2018-01-26] MEDS ORDERED: Norco 5mg/325mg tab ORAL PRN (17:00)
[2018-01-26] MEDS ORDERED: HydrALAZINE 25mg tab ORAL PRN (17:30)
--- NOTE | 2018-01-26 17:30 | Consultation ---
DATE OF CONSULTATION: 01/26/2018 INFECTIOUS DISEASES CONSULTATION CONSULTING PHYSICIAN: Juan Barnhart M.D. REFERRING PHYSICIAN: Mukseh Chow M.D. REASON FOR CONSULTATION: Urinary tract infection. HISTORY OF PRESENTING ILLNESS: This is a 67-year-old gentleman with history of hypertension, coronary artery disease status post stent placement, spinal cord injury, and hypothyroidism, who came in because he had increasing altered mental status. He also had a lot of pain. He was found to have a urinary tract infection and an Infectious Diseases consultation has been obtained for antibiotics. PAST MEDICAL HISTORY: 1. History of hypertension. 2. Coronary artery disease status post stent placement. 3. Spinal cord injury. 4. Hypothyroidism. SOCIAL HISTORY: No history of smoking, alcohol, or drug use. FAMILY HISTORY: Positive for hypertension. REVIEW OF SYSTEMS: RESPIRATORY: No fever, chills, cough, shortness of breath, or chest pain. CARDIAC: No chest pain. No palpitations. No dizziness. No syncope. GASTROINTESTINAL: No nausea. No vomiting. No abdominal pain or diarrhea. MUSCULOSKELETAL: He complains of pain. MEDICATIONS: As an inpatient, the patient is on Protonix, Zosyn, amlodipine, aspirin, Cymbalta, metoprolol, gabapentin, hydralazine, subcutaneous heparin, [place], and Robaxin. ALLERGIES: No known drug allergies. PHYSICAL EXAMINATION: VITAL SIGNS: Temperature of 98.2, T-max of 98.7, pulse of 65, respiratory rate of 18, blood pressure 154/76, O2 saturation of 95%. HEENT: Pupils equally reactive to light and accommodation. Mouth appears clean without thrush. NECK: Supple. No adenopathy. No JVD. CARDIOVASCULAR: Regular rate and rhythm. No murmurs. LUNGS: Clear to auscultation bilaterally. No crackles. No wheezes. ABDOMEN: Soft and nontender. No organomegaly. EXTREMITIES: No cyanosis, no clubbing, no edema. LABORATORY AND DIAGNOSTIC DATA: White count 6.8, hemoglobin 14, hematocrit 44.4, MCV 90, platelet count of 260 with neutrophils of 46%. Sodium 141, potassium 4.8, chloride 109, bicarb 25, BUN 15, creatinine 1.2, glucose 107. Calcium 8.9. Total bilirubin 0.8. AST 19, ALT 12, and alkaline phosphatase 62. Beta natriuretic peptide 222. Total protein 6.5 and albumin 2.9. UA showing too numerous to count white cells. Urine culture growing Pseudomonas is susceptible to piperacillin-tazobactam and cefepime, Enterococcus is susceptible to ampicillin and vancomycin from 01/21/2018. On 01/24/2018 urine culture growing gram-negative rods. Rectal swab was negative for VRE. Nasal swab was negative for MRSA. Cervical spine x-ray showing no acute trauma, postsurgical changes noted. Lumbar spine x-ray showed no acute trauma, degenerative changes noted. A 2D echocardiogram is showing trace mitral regurgitation, trace tricuspid regurgitation. CT head showing no acute process, small vessel disease noted. Left caudate nucleus lacunar infarct noted. ASSESSMENT: This is a 67-year-old gentleman with history of hypertension and coronary artery disease who comes in with altered mental status and is found to have Pseudomonas. 1. Pseudomonas and Enterococcus urinary tract infection. 2. Hypertension. PLAN: 1. Continue Zosyn five more days. 2. We will follow up cultures. I would like to thank, Dr. Mukesh Chow, for this consultation. Juan Barnhart M.D. DR: Merlene JOB#: [id number] CC: Mukesh Chow M.D.
[2018-01-26 20:00] VITALS: BP 134/77
[2018-01-26] MEDS: Metoprolol Tartrate 50mg tab ORAL SCH (21:15)
--- NOTE | 2018-01-26 23:15 | Progress Note ---
DATE: 01/26/2018 SUBJECTIVE: The patient is still illogical, wants to leave against medical advice. He is unable to understand or appreciate the informations given to him in regards to his medical condition. According to his primary as well as a energy sales consultant, he needs to remain hospital and receive more antibiotics before discharge. MENTAL STATUS EXAMINATION: The patient is alert and oriented times self, place, and time. Mood is irritable and dysphoric. Affect is constricted, congruent with mood. Thought process is concrete. Thought content, no suicidal or homicidal ideations. ASSESSMENT: 1. Anxiety disorder and depression. 2. Pain disorder. PLAN: 1. We will continue the Cymbalta. 2. The patient lacks capacity to make decisions. He may not leave against medical advice. The nurse and . Cathy Chung M.D. DR: FAZAL JOB#: [id number] CC:
[2018-01-27] VITALS (7 sets, daily range): BP systolic 125–157; BP diastolic 71–84
--- NOTE | 2018-01-27 00:45 | Progress Note ---
DATE: 01/26/2018 INTERNAL MEDICINE PROGRESS NOTE SUBJECTIVE: The patient is seen with his daughter at bedside today. He has no distress. No complaints and he is compliant with care. Understanding of his therapies for a multi-drug resistant urinary tract infection. OBJECTIVE: VITAL SIGNS: Afebrile. Blood pressure 154/76, pulse 65, respirations 18. LUNGS: Clear. CARDIAC: Regular. ABDOMEN: Soft, no edema, indwelling catheter. IMPRESSION: 1. Complicated urinary tract infection with Pseudomonas and enterococcus, indwelling Graham catheter. 2. Spinal cord injury. 3. Malignant hypertension, resolved. 4. Hypertensive heart disease with improving control of blood pressure. PLAN: 1. Intravenous antibiotics as per Infectious Disease data power consultant. 2. Titrate antihypertensives as well as pain control regimen. Mukesh Chow M.D. DR: WILIAN JOB#: [id number] CC:
[2018-01-27] MEDS: Piperacillin/Tazobactam 3.375 GM in D5W 110 ML IVPB SCH ×3 (01:34→17:53)
[2018-01-27] MEDS: HYDROcodone/Acetamin 10/325 tab ORAL PRN ×5 (03:06→20:42)
[2018-01-27] MEDS: HydrALAZINE 50mg tab ORAL SCH ×3 (05:59→22:31)
[2018-01-27] MEDS: DULoxetine 30mg cap ORAL SCH (08:38)
[2018-01-27] MEDS: Aspirin Baby 81mg ORAL SCH (08:39)
[2018-01-27] MEDS: Metoprolol Tartrate 50mg tab ORAL SCH ×2 (08:39→20:42)
[2018-01-27] MEDS: Heparin 5000 units/ml inj SUBQ SCH ×2 (08:41→20:44)
--- NOTE | 2018-01-27 11:44 | Infectious Diseases Prog Note ---
"Assessment/Plan Assessment/Plan antibiotics : zosyn A 1. pseudomonas | enterococcus | streptococcus UTI 2. hypertension 3. hypothyroidism P 1. continue zosyn 4 more days 2. will follow up cultures Subjective Constitutional: Denies: fever, chills Respiratory: Denies: shortness of breath, dry cough Gastrointestinal/Abdominal: Denies: nausea, vomiting, diarrhea Musculoskeletal: Reports: pain Allergies: Coded Allergies: No Known Allergies (Unverified , 05/06/15) Objective Vital Signs Last 24 Hour Vital Signs Date Time Temp Pulse Resp B/P (MAP) Pulse Ox O2 Delivery O2 Flow Rate FiO2 01/27/18 09:00 98.2 01/27/18 08:40 63 145/78 01/27/18 08:39 63 145/78 01/27/18 08:01 98.2 01/27/18 08:00 97.7 63 20 145/78 (100) 95 97.7 01/27/18 05:59 157/79 01/27/18 04:00 98.2 65 18 157/79 (105) 95 98.2 01/27/18 00:00 98.5 64 18 140/84 (102) 92 98.5 01/26/18 23:44 140/84 01/26/18 21:15 64 134/77 01/26/18 21:00 Room Air 01/26/18 20:00 98.4 64 19 134/77 (96) 92 98.4 01/26/18 16:00 97.0 66 18 116/69 (85) 96 97.0 01/26/18 14:09 126/69 01/26/18 12:00 61 01/26/18 12:00 97.6 61 18 126/69 (88) 96 97.6 Height (Feet): 5 Height (Inches): 9.00 Weight (Pounds): 187 Respiratory/Chest: lungs clear Cardiovascular: normal rate, regular rhythm, no gallop/murmur Abdomen: soft, non tender Extremities: no edema Microbiology Date/Time Source Procedure Growth Status 01/24/18 22:00 Urine,Clean Catch Urine Culture - Preliminary Pseudomonas Aeruginosa Strep Species, Gamma-Hemolytic Resulted Current Medications Medications (Trade) Dose Ordered Sig/Makenzie Route PRN Reason Start Time Stop Time Status Last Admin Dose Admin Acetaminophen/ Hydrocodone Bitart ([address] 10/325) 1 tab Q4H PRN ORAL Severe Pain (Pain Scale 7-10) 01/26/18 17:00 01/29/18 16:59 01/27/18 08:01 Acetaminophen/ Hydrocodone Bitart ([address] 5/325) 1 tab Q4H PRN ORAL Moderate Pain (Pain Scale 4-6) 01/26/18 17:00 01/28/18 16:59 Amlodipine Besylate (Norvasc) 10 mg DAILY ORAL 01/27/18 09:00 02/22/18 08:59 01/27/18 08:40 Aspirin (ASA) 81 mg DAILY ORAL 01/27/18 09:00 02/21/18 08:59 01/27/18 08:39 Duloxetine HCl (Cymbalta) 30 mg DAILY ORAL 01/27/18 09:00 02/22/18 12:59 01/27/18 08:38 Gabapentin (Neurontin) 300 mg TID ORAL 01/26/18 18:00 02/25/18 17:59 01/27/18 08:38 Heparin Sodium (Porcine) (Heparin 5000 units/ml) 5,000 units EVERY 12 HOURS SUBQ 01/26/18 21:00 02/21/18 08:59 01/27/18 08:41 Hydralazine HCl (Apresoline) 25 mg Q4H PRN ORAL For High Blood Pressure 01/26/18 17:30 02/20/18 21:29 Hydralazine HCl (Apresoline) 50 mg EVERY 8 HOURS ORAL 01/26/18 22:00 02/21/18 05:59 01/27/18 05:59 Methocarbamol (Robaxin) 500 mg Q8H PRN ORAL muscle spasm 01/26/18 17:00 02/22/18 16:59 Metoprolol Tartrate (Lopressor) 50 mg Q12HR ORAL 01/26/18 21:00 02/25/18 20:59 01/27/18 08:39 Pantoprazole (Protonix) 40 mg ACBREAKFAST ORAL 01/27/18 06:30 02/26/18 06:29 01/27/18 05:59 Piperacillin Sod/ Tazobactam Sod 3.375 gm/Dextrose 110 ml @ 27.5 mls/hr 0200,1000,1800 IVPB 01/26/18 18:00 02/01/18 01:59 01/27/18 11:01 MEI SHAIKH Jan 27, 2018 11:43"
[2018-01-28] VITALS (7 sets, daily range): BP systolic 118–147; BP diastolic 60–79
[2018-01-28] MEDS: Piperacillin/Tazobactam 3.375 GM in D5W 110 ML IVPB SCH ×3 (02:12→17:15)
[2018-01-28] MEDS: HYDROcodone/Acetamin 10/325 tab ORAL PRN ×5 (03:10→21:05)
--- NOTE | 2018-01-28 04:30 | Progress Note ---
DATE: 01/27/2018 CARDIOLOGY AND INTERNAL MEDICINE PROGRESS NOTE SUBJECTIVE: pain. No chest pain. No abdominal pain. No shortness of breath. He continues on IV antimicrobials. He remains anxious to go home. OBJECTIVE: VITAL SIGNS: Blood pressure 146/78, pulse 73, respiratory rate 20, and afebrile. LUNGS: Clear. CARDIAC: Regular. ABDOMEN: Soft. EXTREMITIES: No edema. IMPRESSION: 1. Multi-drug resistant Pseudomonas urinary tract infection, indwelling urinary catheter due to neurogenic bladder. 2. Spinal cord injury, resolved. 3. Hypertensive urgency, controlled. 4. Hypertensive heart disease. 5. Moderate protein-calorie malnutrition. PLAN: Plan of care remains unchanged. IV antibiotic completion discharge. Mukesh Chow M.D. DR: UMESH JOB#: [id number] CC:
[2018-01-28] MEDS: HydrALAZINE 50mg tab ORAL SCH ×3 (06:13→22:43)
[2018-01-28 07:24] LABS: BASOPHILS % (AUTO) 1.6 % (0.0-2.0); EOSINOPHILS % (AUTO) 4.3 % (0.0-3.0); HEMATOCRIT 38.7 % (42.0-52.0); LYMPHOCYTES % (AUTO) 48.3 % (20.0-45.0); MEAN CORPUSCULAR VOLUME 90 FL (80-99); MONOCYTES % (AUTO) 7.5 % (1.0-10.0); NEUTROPHILS % (AUTO) 38.3 % (45.0-75.0); PLATELET COUNT 228 K/UL (150-450); RED BLOOD COUNT 4.29 M/UL (4.70-6.10); RED CELL DISTRIBUTION WIDTH 14.8 % (11.6-14.8); WHITE BLOOD COUNT 5.3 K/UL (4.8-10.8)
[2018-01-28 07:49] LABS: ALANINE AMINOTRANSFERASE 15 U/L (12-78); ALBUMIN 2.8 G/DL (3.4-5.0); ALBUMIN/GLOBULIN RATIO 0.8 (1.0-2.7); ALKALINE PHOSPHATASE 52 U/L (46-116); ANION GAP 8 mmol/L (5-15); ASPARTATE AMINO TRANSFERASE 12 U/L (15-37); BILIRUBIN,TOTAL 0.9 MG/DL (0.2-1.0); BLOOD UREA NITROGEN 11 mg/dL (7-18); CALCIUM 8.6 MG/DL (8.5-10.1); CARBON DIOXIDE 27 MMOL/L (21-32); CHLORIDE 106 MMOL/L (98-107); CREATININE 1.1 MG/DL (0.55-1.30); SODIUM 141 MMOL/L (136-145)
[2018-01-28] MEDS: Aspirin Baby 81mg ORAL SCH (08:22)
[2018-01-28] MEDS: Heparin 5000 units/ml inj SUBQ SCH ×2 (08:24→21:05)
[2018-01-28] MEDS: Metoprolol Tartrate 50mg tab ORAL SCH ×2 (08:24→21:04)
[2018-01-28] MEDS: DULoxetine 30mg cap ORAL SCH (08:24)
--- NOTE | 2018-01-28 11:52 | Infectious Diseases Prog Note ---
"Assessment/Plan Assessment/Plan A 1. pseudomonas | enterococcus | streptococcus UTI 2. hypertension 3. hypothyroidism P 1. continue Zosyn 3 more days 2. will follow up cultures Subjective ROS Limited/Unobtainable: No Constitutional: Reports: no symptoms Respiratory: Reports: no symptoms Cardiovascular: Reports: no symptoms Gastrointestinal/Abdominal: Reports: no symptoms Genitourinary: Reports: no symptoms Musculoskeletal: Reports: pain, other - left knee Allergies: Coded Allergies: No Known Allergies (Unverified , 05/06/15) Objective Vital Signs Last 24 Hour Vital Signs Date Time Temp Pulse Resp B/P (MAP) Pulse Ox O2 Delivery O2 Flow Rate FiO2 01/28/18 09:20 97.8 01/28/18 08:25 69 147/79 01/28/18 08:24 69 147/79 01/28/18 08:21 97.8 01/28/18 08:08 97.8 69 18 147/79 (101) 95 97.8 01/28/18 06:13 142/66 01/28/18 04:00 98.3 64 20 142/66 (91) 95 98.3 01/28/18 00:00 98.4 64 20 128/67 (87) 93 98.4 01/27/18 22:31 146/78 01/27/18 22:28 73 20 146/78 (100) 98 01/27/18 21:00 Room Air 01/27/18 20:42 64 131/71 01/27/18 20:00 97.7 64 20 131/71 (91) 95 97.7 01/27/18 16:42 98.2 01/27/18 16:00 97.7 60 20 125/74 (91) 97 97.7 01/27/18 14:26 150/81 01/27/18 12:05 98.2 01/27/18 12:00 97.7 58 20 150/81 (104) 95 97.7 Height (Feet): 5 Height (Inches): 9.00 Weight (Pounds): 186 General Appearance: no acute distress HEENT: mucous membranes moist Respiratory/Chest: lungs clear Cardiovascular: normal rate Abdomen: soft, non tender Extremities: no edema, other - scar of left knee replacemnt Neurologic/Psychiatric: alert, oriented x 3, responsive Laboratory Tests Test 01/28/18 06:05 White Blood Count 5.3 K/UL (4.8-10.8) Red Blood Count 4.29 M/UL (4.70-6.10) L Hemoglobin 13.0 G/DL (14.2-18.0) L Hematocrit 38.7 % (42.0-52.0) L Mean Corpuscular Volume 90 FL (80-99) Mean Corpuscular Hemoglobin 30.4 PG (27.0-31.0) Mean Corpuscular Hemoglobin Concent 33.7 G/DL (32.0-36.0) Red Cell Distribution Width 14.8 % (11.6-14.8) Platelet Count 228 K/UL (150-450) Mean Platelet Volume 6.4 FL (6.5-10.1) L Neutrophils (%) (Auto) 38.3 % (45.0-75.0) L Lymphocytes (%) (Auto) 48.3 % (20.0-45.0) H Monocytes (%) (Auto) 7.5 % (1.0-10.0) Eosinophils (%) (Auto) 4.3 % (0.0-3.0) H Basophils (%) (Auto) 1.6 % (0.0-2.0) Sodium Level 141 MMOL/L (136-145) Potassium Level 4.0 MMOL/L (3.5-5.1) Chloride Level 106 MMOL/L (98-107) Carbon Dioxide Level 27 MMOL/L (21-32) Anion Gap 8 mmol/L (5-15) Blood Urea Nitrogen 11 mg/dL (7-18) Creatinine 1.1 MG/DL (0.55-1.30) Estimat Glomerular Filtration Rate > 60 mL/min (>60) Glucose Level 100 MG/DL (74-106) Calcium Level 8.6 MG/DL (8.5-10.1) Magnesium Level 2.0 MG/DL (1.8-2.4) Total Bilirubin 0.9 MG/DL (0.2-1.0) Aspartate Amino Transf (AST/SGOT) 12 U/L (15-37) L Alanine Aminotransferase (ALT/SGPT) 15 U/L (12-78) Alkaline Phosphatase 52 U/L (46-116) Total Protein 6.1 G/DL (6.4-8.2) L Albumin 2.8 G/DL (3.4-5.0) L Globulin 3.3 g/dL Albumin/Globulin Ratio 0.8 (1.0-2.7) L Current Medications Medications (Trade) Dose Ordered Sig/Makenzie Route PRN Reason Start Time Stop Time Status Last Admin Dose Admin Acetaminophen/ Hydrocodone Bitart ([place] 10/325) 1 tab Q4H PRN ORAL Severe Pain (Pain Scale 7-10) 01/26/18 17:00 01/29/18 16:59 01/28/18 08:21 Acetaminophen/ Hydrocodone Bitart ([place] 5/325) 1 tab Q4H PRN ORAL Moderate Pain (Pain Scale 4-6) 01/26/18 17:00 01/28/18 16:59 Amlodipine Besylate (Norvasc) 10 mg DAILY ORAL 01/27/18 09:00 02/22/18 08:59 01/28/18 08:25 Aspirin (ASA) 81 mg DAILY ORAL 01/27/18 09:00 02/21/18 08:59 01/28/18 08:22 Duloxetine HCl (Cymbalta) 30 mg DAILY ORAL 01/27/18 09:00 02/22/18 12:59 01/28/18 08:24 Gabapentin (Neurontin) 300 mg TID ORAL 01/26/18 18:00 02/25/18 17:59 01/28/18 08:21 Heparin Sodium (Porcine) (Heparin 5000 units/ml) 5,000 units EVERY 12 HOURS SUBQ 01/26/18 21:00 02/21/18 08:59 01/28/18 08:24 Hydralazine HCl (Apresoline) 25 mg Q4H PRN ORAL For High Blood Pressure 01/26/18 17:30 02/20/18 21:29 Hydralazine HCl (Apresoline) 50 mg EVERY 8 HOURS ORAL 01/26/18 22:00 02/21/18 05:59 01/28/18 06:13 Methocarbamol (Robaxin) 500 mg Q8H PRN ORAL muscle spasm 01/26/18 17:00 02/22/18 16:59 Metoprolol Tartrate (Lopressor) 50 mg Q12HR ORAL 01/26/18 21:00 02/25/18 20:59 01/28/18 08:24 Pantoprazole (Protonix) 40 mg ACBREAKFAST ORAL 01/27/18 06:30 02/26/18 06:29 01/28/18 06:13 Piperacillin Sod/ Tazobactam Sod 3.375 gm/Dextrose 110 ml @ 27.5 mls/hr 0200,1000,1800 IVPB 01/26/18 18:00 02/01/18 01:59 01/28/18 09:34 Gary Fuentes MD Jan 28, 2018 11:52"
--- NOTE | 2018-01-28 17:15 | Progress Note ---
DATE: 01/28/2018 INTERNAL MEDICINE PROGRESS NOTE SUBJECTIVE: The patient has no new complaints. He continues on IV antibiotics. Labs today reviewed. Notable for white count 5 and hemoglobin 13. Chemistry panel within normal limits. Albumin 2.8. OBJECTIVE: VITAL SIGNS: Blood pressure 129/60, heart rate 63, and respiratory rate 18. LUNGS: Clear. CARDIAC: Regular. ABDOMEN: Soft. EXTREMITIES: No edema. IMPRESSION: Improved. PLAN: 1. Complete intravenous antibiotics. 2. Chronic Graham catheter. 3. Protein supplement. 4. Discharge planning to correction facility for completion of IV therapy. 5. Medication regimen is reviewed. Mukesh Chow M.D. DR: DEMETRIO JOB#: [id number] CC:
[2018-01-29] VITALS: BP 139/70
[2018-01-29] MEDS: Piperacillin/Tazobactam 3.375 GM in D5W 110 ML IVPB SCH ×3 (01:55→18:00)
[2018-01-29] MEDS: HYDROcodone/Acetamin 10/325 tab ORAL PRN ×5 (02:30→20:03)
[2018-01-29 04:00] VITALS: BP 134/68
[2018-01-29] MEDS: HydrALAZINE 50mg tab ORAL SCH ×3 (06:21→22:41)
[2018-01-29 08:00] VITALS: BP 128/71
[2018-01-29] MEDS: Aspirin Baby 81mg ORAL SCH (08:55)
[2018-01-29] MEDS: Metoprolol Tartrate 50mg tab ORAL SCH ×2 (08:55→20:51)
[2018-01-29] MEDS: DULoxetine 30mg cap ORAL SCH (08:58)
[2018-01-29] MEDS: Heparin 5000 units/ml inj SUBQ SCH ×2 (08:59→20:51)
--- NOTE | 2018-01-29 11:16 | Infectious Diseases Prog Note ---
Assessment/Plan Assessment/Plan A 1. pseudomonas , enterococcus & enterococcus UTI 2. hypertension 3. hypothyroidism 4.Neurogenic bladder P 1. continue Zosyn 2 more days 2. will follow up cultures Subjective ROS Limited/Unobtainable: No HEENT: Reports: no symptoms Respiratory: Reports: no symptoms Cardiovascular: Reports: no symptoms Gastrointestinal/Abdominal: Reports: no symptoms Genitourinary: Reports: no symptoms Musculoskeletal: Reports: pain, other - left knee Allergies: Coded Allergies: No Known Allergies (Unverified , 05/06/15) Objective Vital Signs Last 24 Hour Vital Signs Date Time Temp Pulse Resp B/P (MAP) Pulse Ox O2 Delivery O2 Flow Rate FiO2 01/29/18 10:43 97.3 01/29/18 08:57 57 128/71 01/29/18 08:55 57 128/71 01/29/18 08:00 97.3 57 20 128/71 (90) 95 97.3 01/29/18 07:21 97.3 01/29/18 06:21 134/68 01/29/18 04:00 97.7 63 20 134/68 (90) 94 97.7 01/29/18 00:00 97.8 62 20 139/70 (93) 93 97.8 01/28/18 22:43 118/60 01/28/18 22:15 58 20 133/65 (87) 94 01/28/18 21:04 61 118/60 01/28/18 21:00 Room Air 01/28/18 20:00 98.2 61 20 118/60 (79) 93 98.2 01/28/18 17:15 97.3 01/28/18 15:49 97.3 63 18 129/60 (83) 93 97.3 01/28/18 13:15 125/67 01/28/18 12:53 97.2 01/28/18 11:49 97.2 58 18 125/67 (86) 93 97.2 Height (Feet): 5 Height (Inches): 9.00 Weight (Pounds): 187 General Appearance: no acute distress HEENT: mucous membranes moist Respiratory/Chest: lungs clear Cardiovascular: normal rate Abdomen: soft, non tender Genitourinary: other - Graham catheter Extremities: no edema Current Medications Medications (Trade) Dose Ordered Sig/Makenzie Route PRN Reason Start Time Stop Time Status Last Admin Dose Admin Acetaminophen/ Hydrocodone Bitart ([place] 10/325) 1 tab Q4H PRN ORAL Severe Pain (Pain Scale 7-10) 01/26/18 17:00 01/29/18 16:59 01/29/18 10:43 Amlodipine Besylate (Norvasc) 10 mg DAILY ORAL 01/27/18 09:00 02/22/18 08:59 01/29/18 08:57 Aspirin (ASA) 81 mg DAILY ORAL 01/27/18 09:00 02/21/18 08:59 01/29/18 08:55 Duloxetine HCl (Cymbalta) 30 mg DAILY ORAL 01/27/18 09:00 02/22/18 12:59 01/29/18 08:58 Gabapentin (Neurontin) 300 mg TID ORAL 01/26/18 18:00 02/25/18 17:59 01/29/18 08:58 Heparin Sodium (Porcine) (Heparin 5000 units/ml) 5,000 units EVERY 12 HOURS SUBQ 01/26/18 21:00 02/21/18 08:59 01/29/18 08:59 Hydralazine HCl (Apresoline) 25 mg Q4H PRN ORAL For High Blood Pressure 01/26/18 17:30 02/20/18 21:29 Hydralazine HCl (Apresoline) 50 mg EVERY 8 HOURS ORAL 01/26/18 22:00 02/21/18 05:59 01/29/18 06:21 Methocarbamol (Robaxin) 500 mg Q8H PRN ORAL muscle spasm 01/26/18 17:00 02/22/18 16:59 Metoprolol Tartrate (Lopressor) 50 mg Q12HR ORAL 01/26/18 21:00 02/25/18 20:59 01/29/18 08:55 Pantoprazole (Protonix) 40 mg ACBREAKFAST ORAL 01/27/18 06:30 02/26/18 06:29 01/29/18 06:21 Piperacillin Sod/ Tazobactam Sod 3.375 gm/Dextrose 110 ml @ 27.5 mls/hr 0200,1000,1800 IVPB 01/26/18 18:00 02/01/18 01:59 01/29/18 09:01 Gary Fuentes MD Jan 29, 2018 11:16
[2018-01-29 12:00] VITALS: BP 127/79
--- NOTE | 2018-01-29 13:51 | General Progress Note ---
Assessment/Plan Status: stable Assessment/Plan MDD Pain syndrome -Cymbalta 30mg po qam -Neurontin 600mg tid Subjective Date patient seen: Jan 29, 2018 Neurologic/Psychiatric: Reports: anxiety, depressed, emotional problems Allergies: Coded Allergies: No Known Allergies (Unverified , 05/06/15) Subjective the pt has anxiety, agrees to cooperate with primary Objective Last 24 Hour Vital Signs Date Time Temp Pulse Resp B/P (MAP) Pulse Ox O2 Delivery O2 Flow Rate FiO2 01/29/18 12:42 97.6 01/29/18 12:00 97.6 88 19 127/79 (95) 99 97.6 01/29/18 10:43 97.3 01/29/18 09:00 Room Air 01/29/18 08:57 57 128/71 01/29/18 08:55 57 128/71 01/29/18 08:00 97.3 57 20 128/71 (90) 95 97.3 01/29/18 06:21 134/68 01/29/18 04:00 97.7 63 20 134/68 (90) 94 97.7 01/29/18 00:00 97.8 62 20 139/70 (93) 93 97.8 01/28/18 22:43 118/60 01/28/18 22:15 58 20 133/65 (87) 94 01/28/18 21:04 61 118/60 01/28/18 21:00 Room Air 01/28/18 20:00 98.2 61 20 118/60 (79) 93 98.2 01/28/18 17:15 97.3 01/28/18 15:49 97.3 63 18 129/60 (83) 93 97.3 Intake and Output 01/28/18 01/29/18 19:00 07:00 Intake Total 1125.0 ml 165.0 ml Output Total 800 ml 400 ml Balance 325.0 ml -235.0 ml Intake Oral 960 ml IV Total 165.0 ml 165.0 ml Output Urine Total 800 ml 400 ml Height (Feet): 5 Height (Inches): 9.00 Weight (Pounds): 187 General Appearance: no apparent distress, alert Neurologic: oriented x 3, responsive, depressed affect Cathy Chung MD Jan 29, 2018 13:51
[2018-01-29 16:00] VITALS: BP 128/68
--- NOTE | 2018-01-29 17:30 | Progress Note ---
DATE: 01/29/2018 SUBJECTIVE: No new distress. Continues on IV antibiotics. OBJECTIVE: VITAL SIGNS: Blood pressure 128/71, pulse 57, respirations 18, and afebrile. LUNGS: Clear. CARDIAC: Regular. ABDOMEN: Soft. No edema. IMPRESSION: 1. Neurogenic bladder. 2. Chronic indwelling Graham catheter. 3. Complicated Pseudomonas urinary tract infection. 4. Status post drug overdose, unintentional with baclofen and metoprolol. 5. Asymptomatic sinus bradycardia. 6. Moderate protein-calorie malnutrition. PLAN: Complete antimicrobial therapy with discharge home to follow, presently stable on current cardiovascular regimen including beta-monika. We will review EKG and consider adjustment of therapy if appropriate. Mukesh Chow M.D. DR: MALENA JOB#: [id number] CC:
--- NOTE | 2018-01-29 17:46 | General Progress Note ---
Assessment/Plan Assessment/Plan (1) Multiple joint pain (2) Multiple joint OA (3) AMS (4) Muscle spasm (5) Cervical DDD (6) Cervical Spondylosis (7) Cervical Radiculopathy (8) Lumbar DDD (9) Lumbar Spondylosis (10) Lumbar Radiculopathy Patient to be continued on [place] and Neurontin D/w Dr. Vargas and he concurred. Subjective Date patient seen: Jan 29, 2018 Time patient seen: 05:00 - pm Allergies: Coded Allergies: No Known Allergies (Unverified , 05/06/15) Subjective REVIEW OF SYSTEMS: Denies rash, fever, chills, sweating, dizziness, drowsiness, blurred vision, sore throat, or change in weight. No shortness of breath or chest pain. No nausea, vomiting, diarrhea, or blood in the stool or urine. No bowel or bladder incontinence. No SUBJECTIVE: Patient reports that he is doing well continues to c/o pain which has been reduced on the [place]co as needed. He has no new complaints. Objective Last 24 Hour Vital Signs Date Time Temp Pulse Resp B/P (MAP) Pulse Ox O2 Delivery O2 Flow Rate FiO2 01/29/18 16:19 97.6 01/29/18 15:20 97.6 01/29/18 13:53 127/79 01/29/18 12:00 97.6 88 19 127/79 (95) 99 97.6 01/29/18 10:43 97.3 01/29/18 09:00 Room Air 01/29/18 08:57 57 128/71 01/29/18 08:55 57 128/71 01/29/18 08:00 97.3 57 20 128/71 (90) 95 97.3 01/29/18 06:21 134/68 01/29/18 04:00 97.7 63 20 134/68 (90) 94 97.7 01/29/18 00:00 97.8 62 20 139/70 (93) 93 97.8 01/28/18 22:43 118/60 01/28/18 22:15 58 20 133/65 (87) 94 01/28/18 21:04 61 118/60 01/28/18 21:00 Room Air 01/28/18 20:00 98.2 61 20 118/60 (79) 93 98.2 Intake and Output 01/28/18 01/29/18 19:00 07:00 Intake Total 1125.0 ml 165.0 ml Output Total 800 ml 400 ml Balance 325.0 ml -235.0 ml Intake Oral 960 ml IV Total 165.0 ml 165.0 ml Output Urine Total 800 ml 400 ml Height (Feet): 5 Height (Inches): 9.00 Weight (Pounds): 187 Objective GENERAL: Alert, awake, and oriented. LUNGS: Decreased breath sounds bilaterally. HEART: S1 and S2 regular. ABDOMEN: Benign. EXTREMITIES: No cyanosis. No clubbing. NEURO: No changes. Alex Mclean Jan 29, 2018 17:46
[2018-01-29 20:00] VITALS: BP 139/73
[2018-01-30] VITALS (7 sets, daily range): BP systolic 112–140; BP diastolic 60–77
[2018-01-30] MEDS: HYDROcodone/Acetamin 10/325 tab ORAL PRN ×5 (00:10→20:16)
[2018-01-30] MEDS: Piperacillin/Tazobactam 3.375 GM in D5W 110 ML IVPB SCH ×3 (02:10→17:37)
[2018-01-30] MEDS: HydrALAZINE 50mg tab ORAL SCH ×3 (05:58→21:46)
--- NOTE | 2018-01-30 07:48 | General Progress Note ---
Assessment/Plan Assessment/Plan (1) Multiple joint pain (2) Multiple joint OA (3) AMS (4) Muscle spasm (5) Cervical DDD (6) Cervical Spondylosis (7) Cervical Radiculopathy (8) Lumbar DDD (9) Lumbar Spondylosis (10) Lumbar Radiculopathy Patient to be continued on [place] and Neurontin D/w Dr. Vargas and he concurred. Subjective Date patient seen: Jan 30, 2018 Time patient seen: 07:00 - am Allergies: Coded Allergies: No Known Allergies (Unverified , 05/06/15) Subjective REVIEW OF SYSTEMS: Denies rash, fever, chills, sweating, dizziness, drowsiness, blurred vision, sore throat, or change in weight. No shortness of breath or chest pain. No nausea, vomiting, diarrhea, or blood in the stool or urine. No bowel or bladder incontinence. No SUBJECTIVE: Patient is in bed showing no signs of pain or distress. He reports that his pain has been well controlled on the [place] and is waiting to be discharged home. Objective Last 24 Hour Vital Signs Date Time Temp Pulse Resp B/P (MAP) Pulse Ox O2 Delivery O2 Flow Rate FiO2 01/30/18 05:58 133/71 01/30/18 04:00 97.8 57 20 133/71 (91) 92 97.8 01/30/18 00:00 97.6 57 20 140/66 (90) 92 97.6 01/29/18 22:41 139/74 01/29/18 21:00 Room Air 01/29/18 20:51 64 139/73 01/29/18 20:00 98.1 64 20 139/73 (95) 92 98.1 01/29/18 16:19 97.6 01/29/18 16:00 98.7 56 18 128/68 (88) 95 98.7 01/29/18 15:20 97.6 01/29/18 13:53 127/79 01/29/18 12:00 97.6 88 19 127/79 (95) 99 97.6 01/29/18 10:43 97.3 01/29/18 09:00 Room Air 01/29/18 08:57 57 128/71 01/29/18 08:55 57 128/71 01/29/18 08:00 97.3 57 20 128/71 (90) 95 97.3 Intake and Output 01/29/18 01/30/18 19:00 07:00 Intake Total 987.5 ml 192.5 ml Output Total 1200 ml 1000 ml Balance -212.5 ml -807.5 ml IV Total 137.5 ml 192.5 ml Other 850 ml Output Urine Total 1200 ml 1000 ml Height (Feet): 5 Height (Inches): 9.00 Weight (Pounds): 187 Objective GENERAL: Alert, awake, and oriented. LUNGS: Decreased breath sounds bilaterally. HEART: S1 and S2 regular. ABDOMEN: Benign. EXTREMITIES: No cyanosis. No clubbing. NEURO: No changes. Alex Mclean Jan 30, 2018 07:48
[2018-01-30] MEDS: Aspirin Baby 81mg ORAL SCH (09:18)
[2018-01-30] MEDS: DULoxetine 30mg cap ORAL SCH (09:18)
[2018-01-30] MEDS: Metoprolol Tartrate 50mg tab ORAL SCH ×2 (09:22→20:15)
[2018-01-30] MEDS: Heparin 5000 units/ml inj SUBQ SCH ×2 (09:28→20:20)
--- NOTE | 2018-01-30 10:44 | General Progress Note ---
Assessment/Plan Status: stable Assessment/Plan MDD Pain syndrome -Cymbalta 30mg po qam -Neurontin 600mg tid Subjective Date patient seen: Jan 30, 2018 Neurologic/Psychiatric: Reports: anxiety, depressed Allergies: Coded Allergies: No Known Allergies (Unverified , 05/06/15) Subjective the pt has anxiety, is anxious to leave the hospital however cooperating Objective Last 24 Hour Vital Signs Date Time Temp Pulse Resp B/P (MAP) Pulse Ox O2 Delivery O2 Flow Rate FiO2 01/30/18 09:22 61 115/58 01/30/18 09:21 61 115/58 01/30/18 08:30 Room Air 01/30/18 08:00 98.8 65 20 112/60 (77) 94 98.8 01/30/18 05:58 133/71 01/30/18 04:00 97.8 57 20 133/71 (91) 92 97.8 01/30/18 00:00 97.6 57 20 140/66 (90) 92 97.6 01/29/18 22:41 139/74 01/29/18 21:00 Room Air 01/29/18 20:51 64 139/73 01/29/18 20:00 98.1 64 20 139/73 (95) 92 98.1 01/29/18 16:19 97.6 01/29/18 16:00 98.7 56 18 128/68 (88) 95 98.7 01/29/18 15:20 97.6 01/29/18 13:53 127/79 01/29/18 12:00 97.6 88 19 127/79 (95) 99 97.6 01/29/18 10:43 97.3 Intake and Output 01/29/18 01/30/18 18:59 06:59 Intake Total 960.0 ml 220.0 ml Output Total 1200 ml 1000 ml Balance -240.0 ml -780.0 ml IV Total 110.0 ml 220.0 ml Other 850 ml Output Urine Total 1200 ml 1000 ml Height (Feet): 5 Height (Inches): 9.00 Weight (Pounds): 187 General Appearance: no apparent distress, alert Neurologic: oriented x 3, depressed affect Cathy Chung MD Jan 30, 2018 10:44
--- NOTE | 2018-01-30 11:11 | Infectious Diseases Prog Note ---
"Assessment/Plan Assessment/Plan antibiotics : zosyn A 1. pseudomonas | enterococcus | streptococcus UTI 2. hypertension 3. hypothyroidism P 1. continue zosyn 1 more day 2. will follow up cultures Subjective Constitutional: Denies: fever, chills Respiratory: Denies: shortness of breath, dry cough Gastrointestinal/Abdominal: Denies: nausea, vomiting, diarrhea Musculoskeletal: Reports: pain Allergies: Coded Allergies: No Known Allergies (Unverified , 05/06/15) Objective Vital Signs Last 24 Hour Vital Signs Date Time Temp Pulse Resp B/P (MAP) Pulse Ox O2 Delivery O2 Flow Rate FiO2 01/30/18 09:22 61 115/58 01/30/18 09:21 61 115/58 01/30/18 08:30 Room Air 01/30/18 08:00 98.8 65 20 112/60 (77) 94 98.8 01/30/18 05:58 133/71 01/30/18 04:00 97.8 57 20 133/71 (91) 92 97.8 01/30/18 00:00 97.6 57 20 140/66 (90) 92 97.6 01/29/18 22:41 139/74 01/29/18 21:00 Room Air 01/29/18 20:51 64 139/73 01/29/18 20:00 98.1 64 20 139/73 (95) 92 98.1 01/29/18 16:19 97.6 01/29/18 16:00 98.7 56 18 128/68 (88) 95 98.7 01/29/18 15:20 97.6 01/29/18 13:53 127/79 01/29/18 12:00 97.6 88 19 127/79 (95) 99 97.6 Height (Feet): 5 Height (Inches): 9.00 Weight (Pounds): 187 Respiratory/Chest: lungs clear Cardiovascular: normal rate, regular rhythm, no gallop/murmur Abdomen: soft, non tender Extremities: no edema Current Medications Medications (Trade) Dose Ordered Sig/Makenzie Route PRN Reason Start Time Stop Time Status Last Admin Dose Admin Acetaminophen/ Hydrocodone Bitart (Tony 10/325) 1 tab Q4H PRN ORAL severe Pain 01/29/18 17:15 02/05/18 17:14 8/21/18 10:08 Amlodipine Besylate (Norvasc) 10 mg DAILY ORAL 01/27/18 09:00 02/22/18 08:59 01/30/18 09:21 Aspirin (ASA) 81 mg DAILY ORAL 01/27/18 09:00 02/21/18 08:59 01/30/18 09:18 Duloxetine HCl (Cymbalta) 30 mg DAILY ORAL 01/27/18 09:00 02/22/18 12:59 01/30/18 09:18 Gabapentin (Neurontin) 300 mg TID ORAL 01/26/18 18:00 02/25/18 17:59 01/30/18 09:18 Heparin Sodium (Porcine) (Heparin 5000 units/ml) 5,000 units EVERY 12 HOURS SUBQ 01/26/18 21:00 02/21/18 08:59 01/30/18 09:28 Hydralazine HCl (Apresoline) 25 mg Q4H PRN ORAL For High Blood Pressure 01/26/18 17:30 02/20/18 21:29 Hydralazine HCl (Apresoline) 50 mg EVERY 8 HOURS ORAL 01/26/18 22:00 02/21/18 05:59 01/30/18 05:58 Methocarbamol (Robaxin) 500 mg Q8H PRN ORAL muscle spasm 01/26/18 17:00 02/22/18 16:59 Metoprolol Tartrate (Lopressor) 50 mg Q12HR ORAL 01/26/18 21:00 02/25/18 20:59 01/30/18 09:22 Pantoprazole (Protonix) 40 mg ACBREAKFAST ORAL 01/27/18 06:30 02/26/18 06:29 01/30/18 05:57 Piperacillin Sod/ Tazobactam Sod 3.375 gm/Dextrose 110 ml @ 27.5 mls/hr 0200,1000,1800 IVPB 01/26/18 18:00 02/01/18 01:59 01/30/18 09:21 MEI SHAIKH Jan 30, 2018 11:11"
[2018-01-31] VITALS: BP 129/73
[2018-01-31] MEDS: Piperacillin/Tazobactam 3.375 GM in D5W 110 ML IVPB SCH ×2 (00:50→09:52)
[2018-01-31] MEDS: HYDROcodone/Acetamin 10/325 tab ORAL PRN ×2 (03:10→08:25)
[2018-01-31 04:00] VITALS: BP 151/75
--- NOTE | 2018-01-31 04:47 | Progress Note ---
DATE: 01/30/2018 INTERNAL MEDICINE PROGRESS NOTE SUBJECTIVE: The patient is without distress. He continues on IV antibiotics. He has an indwelling Graham catheter. He is to continue with mobilization as tolerated. OBJECTIVE: VITAL SIGNS: Blood pressure 133/75, pulse 56, respiratory rate 18, and afebrile. LUNGS: Clear. CARDIAC: Regular. Normal S1 and S2. ABDOMEN: Soft. EXTREMITIES: No edema. IMPRESSION: 1. Indwelling Graham catheter. 2. Neurogenic bladder. 3. Spinal cord injury. 4. Pseudomonas urinary tract infection. 5. Moderate protein-calorie malnutrition. 6. Hypertensive heart disease. 7. sinus bradycardia, on beta-blockers. 8. Chronic diastolic congestive heart failure with resolved acute component. PLAN: 1. Complete IV antibiotics. 2. Discharge plan to follow. 3. Discharge medication regimen to be reviewed with the patient prior to going home. Mukesh Chow M.D. DR: MALENA JOB#: [id number] CC:
[2018-01-31] MEDS: HydrALAZINE 50mg tab ORAL SCH (05:44)
--- NOTE | 2018-01-31 07:56 | General Progress Note ---
Assessment/Plan Assessment/Plan (1) Multiple joint pain (2) Multiple joint OA (3) AMS (4) Muscle spasm (5) Cervical DDD (6) Cervical Spondylosis (7) Cervical Radiculopathy (8) Lumbar DDD (9) Lumbar Spondylosis (10) Lumbar Radiculopathy Patient to be continued on [place] and Neurontin D/w Dr. Vargas and he concurred. Subjective Date patient seen: Jan 31, 2018 Time patient seen: 07:00 - am Allergies: Coded Allergies: No Known Allergies (Unverified , 05/06/15) Subjective REVIEW OF SYSTEMS: Denies rash, fever, chills, sweating, dizziness, drowsiness, blurred vision, sore throat, or change in weight. No shortness of breath or chest pain. No nausea, vomiting, diarrhea, or blood in the stool or urine. No bowel or bladder incontinence. No SUBJECTIVE: Patient showing no signs of pain or distress. Objective Last 24 Hour Vital Signs Date Time Temp Pulse Resp B/P (MAP) Pulse Ox O2 Delivery O2 Flow Rate FiO2 01/31/18 05:44 151/76 01/31/18 04:00 97.2 60 18 151/75 (100) 95 97.2 01/31/18 03:10 97.0 01/31/18 00:00 97.0 57 16 129/73 (91) 94 97.0 57 01/30/18 21:46 133/75 01/30/18 21:42 98.0 56 20 133/75 (94) 95 98.0 56 01/30/18 21:15 97.7 01/30/18 21:10 Room Air 01/30/18 20:16 97.7 01/30/18 20:15 65 137/64 01/30/18 20:00 96.4 54 19 134/77 (96) 94 96.4 01/30/18 16:00 97.7 56 19 126/68 (87) 95 97.7 01/30/18 14:27 132/66 01/30/18 12:00 98.1 65 19 135/75 (95) 93 98.1 01/30/18 09:22 61 115/58 01/30/18 09:21 61 115/58 01/30/18 08:30 Room Air 01/30/18 08:00 98.8 65 20 112/60 (79) 94 98.8 Intake and Output 01/30/18 01/31/18 19:00 07:00 Intake Total 360 ml 1345.0 ml Output Total 850 ml 1300 ml Balance -490 ml 45.0 ml Intake Oral 360 ml 1180 ml IV Total 165.0 ml Output Urine Total 850 ml 1300 ml Height (Feet): 5 Height (Inches): 9.00 Weight (Pounds): 184 Objective GENERAL: Alert, awake, and oriented. LUNGS: Decreased breath sounds bilaterally. HEART: S1 and S2 regular. ABDOMEN: Benign. EXTREMITIES: No cyanosis. No clubbing. NEURO: No changes. Alex Mclean Jan 31, 2018 07:56
[2018-01-31 08:00] VITALS: BP 150/78
[2018-01-31] MEDS: DULoxetine 30mg cap ORAL SCH (08:24)
[2018-01-31] MEDS: Aspirin Baby 81mg ORAL SCH (08:24)
[2018-01-31] MEDS: Heparin 5000 units/ml inj SUBQ SCH (08:25)
[2018-01-31] MEDS: Metoprolol Tartrate 50mg tab ORAL SCH (08:35)
[2018-01-31 11:56] VITALS: BP 127/72
--- NOTE | 2018-01-31 12:04 | General Progress Note ---
Assessment/Plan Status: stable, progressing Assessment/Plan MDD Pain syndrome -Cymbalta 30mg po qam -Neurontin 600mg tid Subjective Date patient seen: Jan 31, 2018 Neurologic/Psychiatric: Reports: anxiety, depressed Allergies: Coded Allergies: No Known Allergies (Unverified , 05/06/15) Subjective the pt is doing better and he was discussed about the pain and depression. Objective Last 24 Hour Vital Signs Date Time Temp Pulse Resp B/P (MAP) Pulse Ox O2 Delivery O2 Flow Rate FiO2 01/31/18 09:24 97.2 01/31/18 08:40 Room Air 01/31/18 08:35 60 150/78 01/31/18 08:35 60 150/78 01/31/18 08:25 97.2 01/31/18 08:00 97.7 60 150/78 (102) 96 97.7 01/31/18 05:44 151/76 01/31/18 04:00 97.2 60 18 151/75 (100) 95 97.2 01/31/18 03:10 97.0 01/31/18 00:00 97.0 57 16 129/73 (91) 94 97.0 57 01/30/18 21:46 133/75 01/30/18 21:42 98.0 56 20 133/75 (94) 95 98.0 56 01/30/18 21:10 Room Air 01/30/18 20:16 97.7 01/30/18 20:15 65 137/64 01/30/18 20:00 96.4 54 19 134/77 (96) 94 96.4 01/30/18 16:00 97.7 56 19 126/68 (87) 95 97.7 01/30/18 14:27 132/66 Intake and Output 01/30/18 01/31/18 19:00 07:00 Intake Total 360 ml 1345.0 ml Output Total 850 ml 1300 ml Balance -490 ml 45.0 ml Intake Oral 360 ml 1180 ml IV Total 165.0 ml Output Urine Total 850 ml 1300 ml Height (Feet): 5 Height (Inches): 9.00 Weight (Pounds): 184 General Appearance: no apparent distress, alert Neurologic: oriented x 3, responsive, depressed affect Cathy Chung MD Jan 31, 2018 12:04
--- NOTE | 2018-02-01 16:23 | Discharge Summary ---
Discharge Summary Discharge Summary _ DATE OF ADMISSION: 01/21/2018 DATE OF DISCHARGE: 01/31/2018 CONSULTANTS: Dr. Cathy Barnhart BRIEF HOSPITAL COURSE: Patient is a 67-year-old male, who was noted to be increasingly altered, withdrawn and lethargic. He took an unknown amount of medications. He stated that he took his medications to treat his pain, but did not attempt to hurt himself. He was noted to be lethargic and was brought to the emergency room. He has medical history significant for hypertension, coronary artery disease, history of coronary stent, spinal cord injury, chronic pain and hypothyroidism. On evaluation at ED, blood pressure was elevated to 199/86, heart rate was 48. Urine toxicology was negative. Salicylate level was 1, acetaminophen <2. He had CT of the head that showed no evidence of intracranial hemorrhage or acute CVA. Urinalysis showed 20-30 WBC, 0-2 RBC, 3+ leukocyte esterase, positive nitrite, 2+ occult blood. He was admitted for evaluation of altered level of consciousness an accidental medication overdose. 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 He was given Cymbalta and Neurontin. He complained of pain and has anxiety. He complained of pain to the neck and back. X-rays done showed no acute bony trauma with degenerative changes and postsurgical changes on the cervical spine. He was given [place]. Urine culture showed growth of Pseudomonas susceptible to Zosyn and cefepime; enterococcus susceptible to ampicillin and vancomycin. He had complicated UTI. He was given Zosyn. Patient was anxious to go home. He was assessed to lack the capacity to make medical decisions or signout AMA. Repeat urine cultures showed enterococcus and Pseudomonas. He was continued on Zosyn. He was given PT and OT. He was eventually discharged home with home health. FINAL DIAGNOSES: Urinary tract infection with Pseudomonas, enterococcus, and Streptococcus, with indwelling Graham catheter Neurogenic bladder with indwelling Graham catheter Unintentional drug overdose (baclofen ingestion and metoprolol overdose) Spinal cord injury Moderate protein calorie malnutrition Hypertensive heart disease Asymptomatic sinus bradycardia Chronic diastolic congestive heart failure with resolved acute component Major depressive disorder Pain syndrome Hypothyroidism Malignant hypertension, resolved Multiple joint pain with multiple joint osteoarthritis Altered mental status/encephalopathy Muscle spasms Cervical degenerative disc disease Cervical spondylosis Cervical radiculopathy Lumbar degenerative disc disease Lumbar spondylosis Lumbar radiculopathy DISPOSITION: Patient was discharged home with home health. DISCHARGE MEDICATIONS: Refer to Discharge Medication List. DISCHARGE INSTRUCTIONS: Follow up within a week. I have been assigned to dictate discharge summary on this account, and I was not involved in the patient's management. Sravani Hylton NP Feb 01, 2018 16:23
== END 2018-01-31 12:55 | disposition home health service (06) | DRG 917 ==
LOC: EDBD 10:15 → EMR 10:53 → EDBEDREQ 13:41 → ICU 13:52 → 2E 01-23 18:00 → 4E 01-26 16:16
DX: T42.8X1A Poisoning by antiparkinsonism drugs and other central muscle-tone depressants, accidental (unintentional), initial encounter (principal); G93.41 Metabolic encephalopathy; I50.33 Acute on chronic diastolic (congestive) heart failure; E87.0 Hyperosmolality and hypernatremia; F11.20 Opioid dependence, uncomplicated; N39.0 Urinary tract infection, site not specified; E44.0 Moderate protein-calorie malnutrition; Y92.9 Unspecified place or not applicable; I16.0 Hypertensive urgency; I11.0 Hypertensive heart disease with heart failure; R00.1 Bradycardia, unspecified; I25.10 Atherosclerotic heart disease of native coronary artery without angina pectoris; Z95.5 Presence of coronary angioplasty implant and graft; E03.9 Hypothyroidism, unspecified; G89.29 Other chronic pain; E86.0 Dehydration; M50.10 Cervical disc disorder with radiculopathy, unspecified cervical region; M51.16 Intervertebral disc disorders with radiculopathy, lumbar region; M62.838 Other muscle spasm; B96.5 Pseudomonas (aeruginosa) (mallei) (pseudomallei) as the cause of diseases classified elsewhere; B95.2 Enterococcus as the cause of diseases classified elsewhere; N31.9 Neuromuscular dysfunction of bladder, unspecified; F32.9 Major depressive disorder, single episode, unspecified; F41.9 Anxiety disorder, unspecified; Z68.27 Body mass index [BMI] 27.0-27.9, adult
CPT/HCPCS: 36415; 70450; 72052; 72110; 80053; 80061; 80307; 80329; 81001; 83605; 83735; 83880; 84443; 84484; 85025; 85610; 85730; 87081; 87086; 87181; 93005; 93306; 99284

== ENCOUNTER 2018-09-11 06:32 | Inpatient (IN) | payer OTHER ==
[2018-09-11] VITALS (7 sets, daily range): BP systolic 107–160; BP diastolic 60–120
[~2018-09-11] VITALS: Ht 180.3 cm; Wt 83.5 kg
[2018-09-11] MEDS ORDERED: AMLODIPINE-BEN1 EACH ORAL (06:39)
[2018-09-11] MEDS ORDERED: Piperacillin/Tazobactam 3.375 GM in NS 110 ML IVPB ONE (06:45)
[2018-09-11 07:06] LABS: APPEARANCE,URINE CLEAR; BILIRUBIN, URINE NEGATIVE (NEGATIVE); COLOR,URINE PALE YELLOW; GLUCOSE, URINE (UA) NEGATIVE (NEGATIVE); KETONES,URINE NEGATIVE (NEGATIVE); LEUKOCYTE ESTERASE ,URINE 3+ (NEGATIVE); NITRITE,URINE NEGATIVE (NEGATIVE); PH,URINE 6.5 (4.5-8.0); PROTEIN,URINE NEGATIVE (NEGATIVE); UROBILINOGEN,URINE NORMAL MG/DL (0.0-1.0)
[2018-09-11 07:11] LABS: EOSINOPHILS % (AUTO) 1.2 % (0.0-3.0); HEMATOCRIT 42.8 % (42.0-52.0); HEMOGLOBIN 14.1 G/DL (14.2-18.0); MEAN CORPUSCULAR VOLUME 88 FL (80-99); MONOCYTES % (AUTO) 6.5 % (1.0-10.0); NEUTROPHILS % (AUTO) 55.3 % (45.0-75.0); PLATELET COUNT 346 K/UL (150-450); RED BLOOD COUNT 4.85 M/UL (4.70-6.10); RED CELL DISTRIBUTION WIDTH 14.4 % (11.6-14.8); WHITE BLOOD COUNT 6.4 K/UL (4.8-10.8)
[2018-09-11 07:18] LABS: ANION GAP 13 mmol/L (5-15); BLOOD UREA NITROGEN 15 mg/dL (7-18); CALCIUM 9.7 MG/DL (8.5-10.1); CARBON DIOXIDE 24 MMOL/L (21-32); CHLORIDE 100 MMOL/L (98-107); CREATININE 1.4 MG/DL (0.55-1.30); POTASSIUM 3.9 MMOL/L (3.5-5.1); SODIUM 137 MMOL/L (136-145)
[2018-09-11 07:23] LABS: INR 1.1 (0.9-1.1)
[2018-09-11 07:35] LABS: ALANINE AMINOTRANSFERASE 15 U/L (12-78); ALBUMIN 3.7 G/DL (3.4-5.0); ALBUMIN/GLOBULIN RATIO 0.9 (1.0-2.7); ALKALINE PHOSPHATASE 69 U/L (46-116); ASPARTATE AMINO TRANSFERASE 14 U/L (15-37); BILIRUBIN,TOTAL 0.9 MG/DL (0.2-1.0); CKMB 1.8 NG/ML (0.0-3.6); CREATINE KINASE 110 U/L (26-308)
--- NOTE | 2018-09-11 08:20 | Emergency Room Report ---
History of Present Illness General Chief Complaint: Generalized Weakness Source: Patient, EMS Present Illness HPI Patient presents with complaints of general weakness Patient reports that he has had previous neck injury and has to self catheterize himself Denies any change in medications Denies any fever reports that over the past few days he has been feeling more tired and weak Denies any focal weakness Denies any chest pain or shortness of breath denies any cough Denies any flank pain Patient appears to show records of being here in January at that time patient had unintentional increase ingestion of blood pressure medication and possible increased pain medication at this time does not feel that that is the case Allergies: Coded Allergies: No Known Allergies (Unverified , 05/06/15) Patient History Past Medical History: see triage record Pertinent Family History: none Reviewed Nursing Documentation: PMH: Agreed; PSxH: Agreed Nursing Documentation-PMH Past Medical History: No History, Except For Hx Cardiac Problems: Yes - UNSPECIFIED Hx Hypertension: Yes Hx Cancer: No Hx Gastrointestinal Problems: No Hx Neurological Problems: No Hx Spinal Cord Injury: Yes - due to fall Review of Systems All Other Systems: negative except mentioned in HPI Physical Exam Vital Signs Date Time Temp Pulse Resp B/P (MAP) Pulse Ox O2 Delivery O2 Flow Rate FiO2 09/11/18 06:26 97.5 132 22 160/120 92 Room Air Sp02 EP Interpretation: reviewed, normal General Appearance: well appearing, no apparent distress Head: normocephalic, atraumatic Eyes: bilateral eye PERRL, bilateral eye EOMI ENT: hearing grossly normal, TMs + canals normal, uvula midline, dry mucus membranes Neck: full range of motion, supple, no meningismus, no bony tend Respiratory: lungs clear, normal breath sounds, no rhonchi, no respiratory distress, no retraction, no accessory muscle use Cardiovascular #1: normal peripheral pulses, regular rate, rhythm, no edema, no gallop, no JVD, no murmur Gastrointestinal: normal bowel sounds, non tender, soft, no mass, no organomegaly, non-distended, no guarding, no hernia, no pulsatile mass, no rebound Genitourinary: no CVA tenderness Musculoskeletal: normal inspection Neurologic: oriented x3, responsive, clinical phlebotomist III-XII nml as tested, motor strength/ tone normal, sensory intact Psychiatric: mood/affect normal Skin: normal color, no rash, warm/dry, palpation normal Lymphatic: normal inspection, no adenopathy Procedures Critical Care Time Critical Care Time 45 minutes for multiple re-evaluations initial critical presentation hypotensive and tachycardic Concern for cardiac cardiopulmonary arrest not including any procedural time, Medical Decision Making Diagnostic Impression: Primary Impression: UTI (urinary tract infection) Additional Impressions: Sepsis Dehydration ER Course Patient is a fairly complex patient with multiple differential to consideration including but not limited to cardiac cardiopulmonary and vascular emergencies Patient initially presented hypotensive and tachycardic Aggressive IV hydration was initiated patient placed on cardiac monitoring Throughout his stay the patient has improved significantly broad-spectrum antibiotics initiated as well given previous significant UTI Today's exam also shows moderate bacteria Patient initially initiated on stepdown ICU admission Given the improvement has been appropriately placed into telemetry and requires continued close care Labs Test 09/11/18 06:40 White Blood Count 6.4 K/UL (4.8-10.8) Red Blood Count 4.85 M/UL (4.70-6.10) Hemoglobin 14.1 G/DL (14.2-18.0) Hematocrit 42.8 % (42.0-52.0) Mean Corpuscular Volume 88 FL (80-99) Mean Corpuscular Hemoglobin 29.1 PG (27.0-31.0) Mean Corpuscular Hemoglobin Concent 32.9 G/DL (32.0-36.0) Red Cell Distribution Width 14.4 % (11.6-14.8) Platelet Count 346 K/UL (150-450) Mean Platelet Volume 6.9 FL (6.5-10.1) Neutrophils (%) (Auto) 55.3 % (45.0-75.0) Lymphocytes (%) (Auto) 36.0 % (20.0-45.0) Monocytes (%) (Auto) 6.5 % (1.0-10.0) Eosinophils (%) (Auto) 1.2 % (0.0-3.0) Basophils (%) (Auto) 1.0 % (0.0-2.0) Prothrombin Time 11.2 SEC (9.30-11.50) Prothromb Time International Ratio 1.1 (0.9-1.1) Activated Partial Thromboplast Time 28 SEC (23-33) Urine Color Pale yellow Urine Appearance Clear Urine pH 6.5 (4.5-8.0) Urine Specific [place] 1.015 (1.005-1.035) Urine Protein Negative (NEGATIVE) Urine Glucose (UA) Negative (NEGATIVE) Urine Ketones Negative (NEGATIVE) Urine Blood 1+ (NEGATIVE) Urine Nitrite Negative (NEGATIVE) Urine Bilirubin Negative (NEGATIVE) Urine Urobilinogen Normal MG/DL (0.0-1.0) Urine Leukocyte Esterase 3+ (NEGATIVE) Urine RBC 2-4 /HPF (0 - 0) Urine WBC 2-4 /HPF (0 - 0) Urine Squamous Epithelial Cells Occasional /LPF Urine Amorphous Sediment Many /LPF (NONE) Urine Bacteria Moderate /HPF (NONE) Sodium Level 137 MMOL/L (136-145) Potassium Level 3.9 MMOL/L (3.5-5.1) Chloride Level 100 MMOL/L (98-107) Carbon Dioxide Level 24 MMOL/L (21-32) Anion Gap 13 mmol/L (5-15) Blood Urea Nitrogen 15 mg/dL (7-18) Creatinine 1.4 MG/DL (0.55-1.30) Estimat Glomerular Filtration Rate > 60 mL/min (>60) Glucose Level 84 MG/DL (74-106) Lactic Acid Level 2.40 mmol/L (0.4-2.0) Calcium Level 9.7 MG/DL (8.5-10.1) Total Bilirubin 0.9 MG/DL (0.2-1.0) Aspartate Amino Transf (AST/SGOT) 14 U/L (15-37) Alanine Aminotransferase (ALT/SGPT) 15 U/L (12-78) Alkaline Phosphatase 69 U/L (46-116) Total Creatine Kinase 110 U/L (26-308) Creatine Kinase MB 1.8 NG/ML (0.0-3.6) Creatine Kinase MB Relative Index 1.6 Troponin I 0.011 ng/mL (0.000-0.056) Pro-B-Type Natriuretic Peptide 321 pg/mL (0-125) Total Protein 7.7 G/DL (6.4-8.2) Albumin 3.7 G/DL (3.4-5.0) Globulin 4.0 g/dL Albumin/Globulin Ratio 0.9 (1.0-2.7) Lipase 165 U/L (73-393) Urine Opiates Screen Negative (NEGATIVE) Urine Barbiturates Screen Negative (NEGATIVE) Phencyclidine (PCP) Screen Negative (NEGATIVE) Urine Amphetamines Screen Negative (NEGATIVE) Urine Benzodiazepines Screen Negative (NEGATIVE) Urine Cocaine Screen Negative (NEGATIVE) Urine Marijuana (THC) Screen Negative (NEGATIVE) Rhythm Strip Diag. Results EP Interpretation: yes Rate: 110 Rhythm: no PVC's, no ectopy, other - Sinus tach Chest X-Ray Diagnostic Results Chest X-Ray Diagnostic Results : Chest X-Ray Ordered: Yes # of Views/Limited/Complete: 1 View Indication: Chest Pain EP Interpretation: Yes Interpretation: no consolidation, no effusion, no pneumothorax Impression: No acute disease - Nonspecific interstitial markings Electronically Signed by: Buffy Nowak DO Last Vital Signs Date Time Temp Pulse Resp B/P (MAP) Pulse Ox O2 Delivery O2 Flow Rate FiO2 09/11/18 07:20 97.1 84 12 125/60 100 Room Air Status: improved Disposition: ADMITTED INPATIENT Condition: Serious Referrals: [facility],REFERRING (PCP) Buffy Nowak DO Sep 11, 2018 08:20
[2018-09-11] MEDS: cefTRIAXone 1 GM in D5W 55 ML IVPB SCH (12:59)
--- NOTE | 2018-09-11 18:45 | Consultation ---
DATE OF CONSULTATION: 09/11/2018 INFECTIOUS DISEASE CONSULT: CONSULTING PHYSICIAN: Gary Fuentes M.D. PRIMARY ATTENDING: Buffy Turner M.D. REASON FOR CONSULT: Complicated UTI. HISTORY OF PRESENT ILLNESS: The patient is a 68-year-old male came from home because of weakness. The patient had a history of neck injury and has a Graham catheter. At the time of admission had a tachycardia of 132, had lactic acidosis. No fever reported. PAST MEDICAL HISTORY: Spinal cord injury after a fall in 2005. The patient had a spinal fusion in the neck area. Has hypertension. Has coronary artery disease, status post stent. Has hypothyroidism. Has left knee replacement. ALLERGIES: No known drug allergy. MEDICATIONS: Got a dose of Zosyn in the ER. Getting Tylenol and sodium chloride. SOCIAL HISTORY: He is . Lives with brother. No history of alcohol or drug abuse. REVIEW OF SYSTEMS: No fever. No chills. No chest pain. No coughing. No nausea. No vomiting. No diarrhea. Has chronic back pain, difficulty walking, usually walks with walker. PHYSICAL EXAMINATION: VITAL SIGNS: Temperature 97.3, pulse 78, blood pressure 141/83. GENERAL APPEARANCE: No acute distress. HEAD AND NECK: No oral lesion. HEART: S1, S2. Regular. LUNGS: Clear. ABDOMEN: Soft, nontender. GENITOURINARY: Has Graham catheter. EXTREMITIES: Has no edema. There is a scar of left knee surgery. LABORATORY AND DIAGNOSTIC DATA: WBC 6.4, hemoglobin 14.1, hematocrit 42.8, platelets 346. Sodium 137, potassium 3.9, chloride 100, bicarb 24, BUN 15, creatinine 1.4. Urine toxicology was negative. UA showed leukocyte esterase 2+, wbc 2 to 4, bacteria moderate. IMPRESSION: Likely complicated UTI. The patient had tachycardia and lactic acidosis at the time of admission, has hypertension, has hypothyroidism, has chronic back pain. RECOMMENDATION: We will send urine for culture. Start the patient on ceftriaxone. We will follow up the cultures and narrow antibiotic. At the end of my exam, I thank Dr. Turner for involving me in the care of this patient. Gary Fuentes M.D. DR: RUSS JOB#: [id number] CC:
[2018-09-12] VITALS: BP 171/95
[2018-09-12 04:00] VITALS: BP 167/77
--- NOTE | 2018-09-12 04:15 | History and Physical Report ---
DATE OF ADMISSION: 09/11/2018 HISTORY OF PRESENT ILLNESS: The patient is admitted for weakness, dizziness, presyncopal episode, and also left knee pain, dehydration and UTI. The patient also has a chronic Graham for obstructive uropathy, and is also complaining of left knee pain. Denies syncope. Denies chills. Denies shortness of breath. Denies cough. Denies orthopnea. PAST MEDICAL HISTORY: Significant for hypertension, hyperlipidemia, CAD, constipation, hypertension, chronic pain syndrome, degenerative joint disease, low back pain. PAST SURGICAL HISTORY: Left knee surgery, four cardiac stents, eye surgery. ALLERGIES: No known allergies. MEDICATIONS: Amlodipine, benazepril, Lipitor, furosemide, hydralazine, isosorbide, metoprolol. FAMILY HISTORY: Does have history of heart disease. SOCIAL HISTORY: The patient denies history of smoking. Denies history of drug or alcohol abuse. REVIEW OF SYSTEMS: HEENT: Denies headaches. RESPIRATORY: Denies shortness of breath. Denies cough. CARDIOVASCULAR: Denies chest pain. Denies orthopnea. GASTROINTESTINAL: Denies nausea, vomiting, or diarrhea. EXTREMITIES: Generalized pain including especially left knee pain. 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 No syncopal episode. PHYSICAL EXAMINATION: VITAL SIGNS: Temperature is 98.1, pulse is 77, blood pressure is 119/70. HEENT: PERRLA. NECK: Supple. No lymphadenopathy. CHEST: Clear to auscultation. CARDIOVASCULAR: Regular rate and rhythm. No murmurs or extra sounds. ABDOMEN: Soft and nontender. No organomegaly. EXTREMITIES: Mild edema on the left knee. It is not warm to touch and it is not to touch on the left knee. No edema. Reflexes are equal on both sides. Moves all extremities. LABORATORY DATA: WBC of 6.4, hemoglobin of 14.1, platelets of 346. Sodium 137, potassium 3.9, BUN of 15, creatinine 1.4, and glucose of 84. ASSESSMENT AND PLAN: 1. Dehydration. 2. Sepsis. 3. UTI. 4. Knee pain. I have asked Dr. Vargas, Dr. Chinchilla, Dr. Gary Fuentes to see the patient for the pain management as well as for azotemia as well as for the management of the dehydration. Dr. Gary Fuentes will help with the management of the antibiotics for possible sepsis as well as UTI. Buffy Turner M.D. DR: FRANKI JOB#: [id number] CC:
[2018-09-12 06:24] LABS: BASOPHILS % (AUTO) 0.7 % (0.0-2.0); EOSINOPHILS % (AUTO) 0.4 % (0.0-3.0); HEMATOCRIT 41.8 % (42.0-52.0); HEMOGLOBIN 13.1 G/DL (14.2-18.0); LYMPHOCYTES % (AUTO) 38.1 % (20.0-45.0); MEAN CORPUSCULAR VOLUME 90 FL (80-99); MONOCYTES % (AUTO) 7.2 % (1.0-10.0); NEUTROPHILS % (AUTO) 53.6 % (45.0-75.0); PLATELET COUNT 326 K/UL (150-450); RED BLOOD COUNT 4.66 M/UL (4.70-6.10); RED CELL DISTRIBUTION WIDTH 14.6 % (11.6-14.8); WHITE BLOOD COUNT 5.9 K/UL (4.8-10.8)
[2018-09-12 07:06] LABS: ALANINE AMINOTRANSFERASE 14 U/L (12-78); ALBUMIN 3.2 G/DL (3.4-5.0); ALBUMIN/GLOBULIN RATIO 0.8 (1.0-2.7); ALKALINE PHOSPHATASE 63 U/L (46-116); ANION GAP 10 mmol/L (5-15); ASPARTATE AMINO TRANSFERASE 13 U/L (15-37); BILIRUBIN,TOTAL 0.6 MG/DL (0.2-1.0); BLOOD UREA NITROGEN 15 mg/dL (7-18); CALCIUM 9.2 MG/DL (8.5-10.1); CARBON DIOXIDE 26 MMOL/L (21-32); CHLORIDE 105 MMOL/L (98-107); CREATININE 1.2 MG/DL (0.55-1.30); POTASSIUM 4.2 MMOL/L (3.5-5.1); SODIUM 141 MMOL/L (136-145)
--- NOTE | 2018-09-12 07:47 | Cardiology Report ---
APPROVED REPORT EKG Measurement Heart [id number] Sinus tachycardia with 1st degree AV block Otherwise normal ECG
[2018-09-12 08:00] VITALS: BP 191/94
--- NOTE | 2018-09-12 08:49 | General Progress Note ---
Assessment/Plan Assessment/Plan (1) Multiple joint pain (2) Multiple joint OA (3) Cervical DDD (4) Cervical Spondylosis (5) Cervical Radiculopathy (6) Lumbar DDD (7) Lumbar Spondylosis (8) Lumbar Radiculopathy Patient to be continued on Bunch D/w Dr. Vargas and he concurred. Subjective Date patient seen: Sep 12, 2018 Time patient seen: 08:30 - am Allergies: Coded Allergies: No Known Allergies (Unverified , 05/06/15) Subjective REVIEW OF SYSTEMS: Denies rash, fever, chills, sweating, dizziness, drowsiness, blurred vision, sore throat, or change in weight. No shortness of breath or chest pain. No nausea, vomiting, diarrhea, or blood in the stool or urine. No bowel or bladder incontinence. No dysuria. He is complaining of generalized body pain. SUBJECTIVE: Patient is a known patient from prior admission. Admitted under the care of Dr. Turner due to sepsis and hypotension. At this time continues to c/o neck and back pain. Started on home medication of Bunch 10/325mg PO 1 tab Q6H PRN. Objective Last 24 Hour Vital Signs Date Time Temp Pulse Resp B/P (MAP) Pulse Ox O2 Delivery O2 Flow Rate FiO2 09/12/18 08:00 98.9 94 21 191/94 (126) 97 09/12/18 07:43 190/107 09/12/18 04:00 72 09/12/18 04:00 97.3 76 18 167/77 (107) 97 09/12/18 00:00 98.9 77 18 171/95 (120) 95 09/12/18 00:00 81 09/11/18 21:00 Room Air 09/11/18 20:00 74 09/11/18 20:00 98.5 82 18 153/85 (107) 96 09/11/18 16:01 68 09/11/18 16:00 98.2 67 20 144/78 (100) 98 09/11/18 13:30 98.1 09/11/18 12:52 70 09/11/18 11:33 98.1 77 18 119/73 (88) 98 09/11/18 11:15 74 09/11/18 10:22 78 18 141/83 (102) 100 09/11/18 10:21 Room Air 09/11/18 09:58 97.3 72 12 114/68 100 Room Air 09/11/18 08:50 97.3 69 11 107/63 100 Room Air Intake and Output 09/11/18 09/12/18 19:00 07:00 Intake Total 3000 ml Output Total 700 ml 1700 ml Balance 2300 ml -1700 ml Intake Oral 490 ml IV Total 2510 ml Output Urine Total 700 ml 1700 ml Laboratory Tests 09/12/18 04:55: White Blood Count 5.9, Red Blood Count 4.66L, Hemoglobin 13.1L, Hematocrit 41.8L , Mean Corpuscular Volume 90, Mean Corpuscular Hemoglobin 28.2, Mean Corpuscular Hemoglobin Concent 31.4L, Red Cell Distribution Width 14.6, Platelet Count 326, Mean Platelet Volume 6.4L, Neutrophils (%) (Auto) 53.6, Lymphocytes (%) (Auto) 38.1, Monocytes (%) (Auto) 7.2, Eosinophils (%) (Auto) 0.4, Basophils (%) (Auto) 0.7, Sodium Level 141, Potassium Level 4.2, Chloride Level 105, Carbon Dioxide Level 26, Anion Gap 10, Blood Urea Nitrogen 15, Creatinine 1.2, Estimat Glomerular Filtration Rate > 60, Glucose Level 94, Calcium Level 9.2, Total Bilirubin 0.6, Aspartate Amino Transf (AST/SGOT) 13L, Alanine Aminotransferase (ALT/SGPT) 14, Alkaline Phosphatase 63, Total Protein 7.1, Albumin 3.2L, Globulin 3.9, Albumin/Globulin Ratio 0.8L Height (Feet): 5 Height (Inches): 11.00 Weight (Pounds): 184 Objective GENERAL: Alert, awake, and oriented. LUNGS: Decreased breath sounds bilaterally. HEART: S1 and S2 regular. ABDOMEN: Benign. EXTREMITIES: No cyanosis. No clubbing. NEURO: Weakness noted b/l UE and LE. Alex Mclean Sep 12, 2018 08:49
--- NOTE | 2018-09-12 09:25 | Consultation ---
Consult Note Consult Note asked by Dr moncada to [facility] for BP management Patient presents with complaints of general weakness Patient reports that he has had previous neck injury and has to self catheterize himself Denies any change in medications Denies any fever reports that over the past few days he has been feeling more tired and weak Denies any focal weakness Denies any chest pain or shortness of breath denies any cough Denies any flank pain Patient appears to show records of being here in January at that time patient had unintentional increase ingestion of blood pressure medication and possible increased pain medication at this time does not feel that that is the case No Known Allergies (Unverified , 05/06/15) Past Medical History: No History, Except For Hx Cardiac Problems: Yes - UNSPECIFIED Hx Hypertension: Yes Hx Spinal Cord Injury: Yes - due to fall examined data reviewed Assessment/Plan UTI Chronic pain due to spinal cord injury. h/o Bradyarrhythmia, Hypertensive urgency. History of coronary stent. Dehydration. Metabolic encephalopathy. check labs adjust BP meds antibiotics per orders Toro Chinchilla MD Sep 12, 2018 09:25
[2018-09-12] MEDS ORDERED: traMADol 50mg tab ORAL PRN ×2 (09:30)
[2018-09-12] MEDS ORDERED: Metoprolol Tartrate 50mg tab ORAL SCH ×2 (09:30→21:00)
[2018-09-12 09:56] LABS: CHOLESTEROL 171 MG/DL (< 200); CREATINE KINASE 91 U/L (26-308); GAMMA GLUTAMYL TRANSPEPTIDASE 6 U/L (5-85); HDL CHOLESTEROL 51 MG/DL (40-60); PHOSPHORUS 3.1 MG/DL (2.5-4.9); TRIGLYCERIDES 49 MG/DL (30-150)
[2018-09-12] MEDS: HYDROcodone/Acetamin 10/325 tab ORAL PRN ×3 (10:24→22:21)
[2018-09-12 12:00] VITALS: BP 124/68
[2018-09-12] MEDS: cefTRIAXone 1 GM in D5W 55 ML IVPB SCH (12:17)
[2018-09-12] MEDS: Docusate 100mg cap ORAL SCH ×2 (12:17→17:59)
--- NOTE | 2018-09-12 13:25 | General Progress Note ---
Assessment/Plan Problem List: (1) Sepsis ICD Codes: A41.9 - Sepsis, unspecified organism SNOMED: 42884089 (2) Dehydration ICD Codes: E86.0 - Dehydration SNOMED: 42540956 (3) Zhu catheter problem ICD Codes: T83.9XXA - Unspecified complication of genitourinary prosthetic device, implant and graft, initial encounter SNOMED: 547324778 (4) Episode of generalized weakness ICD Codes: R53.1 - Weakness SNOMED: 67029422 (5) Knee pain, left ICD Codes: M25.562 - Pain in left knee SNOMED: 04485874 (6) Abdominal pain ICD Codes: R10.9 - Unspecified abdominal pain SNOMED: 21522279 (7) UTI (urinary tract infection) ICD Codes: N39.0 - Urinary tract infection, site not specified SNOMED: 65113672 Status: progressing Assessment/Plan zhu knee pain uti weak reviewed chart and labs clinically improving Subjective ROS Limited/Unobtainable: Yes Allergies: Coded Allergies: No Known Allergies (Unverified , 05/06/15) Objective Last 24 Hour Vital Signs Date Time Temp Pulse Resp B/P (MAP) Pulse Ox O2 Delivery O2 Flow Rate FiO2 09/12/18 12:17 124/68 09/12/18 12:00 97.9 66 17 124/68 (86) 94 09/12/18 09:52 94 191/94 09/12/18 09:00 Room Air 09/12/18 08:00 71 09/12/18 08:00 98.9 94 21 191/94 (126) 97 09/12/18 07:43 190/107 09/12/18 04:00 72 09/12/18 04:00 97.3 76 18 167/77 (107) 97 09/12/18 00:00 98.9 77 18 171/95 (120) 95 09/12/18 00:00 81 09/11/18 21:00 Room Air 09/11/18 20:00 74 09/11/18 20:00 98.5 82 18 153/85 (107) 96 09/11/18 16:01 68 09/11/18 16:00 98.2 67 20 144/78 (100) 98 09/11/18 13:30 98.1 Intake and Output 09/11/18 09/12/18 19:00 07:00 Intake Total 3000 ml Output Total 700 ml 1700 ml Balance 2300 ml -1700 ml Intake Oral 490 ml IV Total 2510 ml Output Urine Total 700 ml 1700 ml Laboratory Tests 09/12/18 04:55: White Blood Count 5.9, Red Blood Count 4.66L, Hemoglobin 13.1L, Hematocrit 41.8L , Mean Corpuscular Volume 90, Mean Corpuscular Hemoglobin 28.2, Mean Corpuscular Hemoglobin Concent 31.4L, Red Cell Distribution Width 14.6, Platelet Count 326, Mean Platelet Volume 6.4L, Neutrophils (%) (Auto) 53.6, Lymphocytes (%) (Auto) 38.1, Monocytes (%) (Auto) 7.2, Eosinophils (%) (Auto) 0.4, Basophils (%) (Auto) 0.7, Sodium Level 141, Potassium Level 4.2, Chloride Level 105, Carbon Dioxide Level 26, Anion Gap 10, Blood Urea Nitrogen 15, Creatinine 1.2, Estimat Glomerular Filtration Rate > 60, Glucose Level 94, Hemoglobin A1c 5.5, Uric Acid 5.6, Calcium Level 9.2, Phosphorus Level 3.1, Magnesium Level 2.0, Total Bilirubin 0.6, Gamma Glutamyl Transpeptidase 6, Aspartate Amino Transf (AST/SGOT) 13L, Alanine Aminotransferase (ALT/SGPT) 14, Alkaline Phosphatase 63, Total Creatine Kinase 91, C-Reactive Protein, Quantitative 0.5, Total Protein 7.1, Albumin 3.2L, Globulin 3.9, Albumin/ Globulin Ratio 0.8L, Triglycerides Level 49, Cholesterol Level 171, LDL Cholesterol 108H, HDL Cholesterol 51, Cholesterol/HDL Ratio 3.4, Vitamin B12 Level 309, Folate 6.6L, Thyroid Stimulating Hormone (TSH) 0.581 Height (Feet): 5 Height (Inches): 11.00 Weight (Pounds): 184 Cardiovascular: normal rate Respiratory/Chest: lungs clear Abdomen: soft Buffy Turner MD Sep 12, 2018 13:25
--- NOTE | 2018-09-12 13:53 | Infectious Diseases Prog Note ---
Assessment/Plan Assessment/Plan A Bacteremia complicated UTI. tachycardia and lactic acidosis resolved hypertension, has hypothyroidism, has chronic back pain. RECOMMENDATION: Continue ceftriaxon Add IV vancomycin Will f/u cultures Subjective ROS Limited/Unobtainable: No Constitutional: Reports: no symptoms Cardiovascular: Reports: no symptoms Gastrointestinal/Abdominal: Reports: no symptoms Musculoskeletal: Reports: pain, other - in left knee & back Allergies: Coded Allergies: No Known Allergies (Unverified , 05/06/15) Objective Vital Signs Last 24 Hour Vital Signs Date Time Temp Pulse Resp B/P (MAP) Pulse Ox O2 Delivery O2 Flow Rate FiO2 09/12/18 12:17 124/68 09/12/18 12:00 97.9 66 17 124/68 (86) 94 09/12/18 09:52 94 191/94 09/12/18 09:00 Room Air 09/12/18 08:00 71 09/12/18 08:00 98.9 94 21 191/94 (126) 97 09/12/18 07:43 190/107 09/12/18 04:00 72 09/12/18 04:00 97.3 76 18 167/77 (107) 97 09/12/18 00:00 98.9 77 18 171/95 (120) 95 09/12/18 00:00 81 09/11/18 21:00 Room Air 09/11/18 20:00 74 09/11/18 20:00 98.5 82 18 153/85 (107) 96 09/11/18 16:01 68 09/11/18 16:00 98.2 67 20 144/78 (100) 98 Height (Feet): 5 Height (Inches): 11.00 Weight (Pounds): 184 General Appearance: no acute distress HEENT: mucous membranes moist Respiratory/Chest: normal breath sounds Cardiovascular: normal rate Abdomen: soft, non tender Genitourinary: other - Graham catheter Extremities: no edema, other - scar of left knee sugery Skin: no rash Neurologic/Psychiatric: alert, oriented x 3, responsive Microbiology Date/Time Source Procedure Growth Status 09/11/18 06:55 Blood Blood Culture - Preliminary Resulted 09/11/18 06:40 Blood Blood Culture - Preliminary Resulted 09/11/18 11:58 Indwelling Cath Urine Culture - Preliminary Resulted 09/11/18 06:40 Urine,Clean Catch Urine Culture - Preliminary Resulted Laboratory Tests Test 09/12/18 04:55 White Blood Count 5.9 K/UL (4.8-10.8) Red Blood Count 4.66 M/UL (4.70-6.10) L Hemoglobin 13.1 G/DL (14.2-18.0) L Hematocrit 41.8 % (42.0-52.0) L Mean Corpuscular Volume 90 FL (80-99) Mean Corpuscular Hemoglobin 28.2 PG (27.0-31.0) Mean Corpuscular Hemoglobin Concent 31.4 G/DL (32.0-36.0) L Red Cell Distribution Width 14.6 % (11.6-14.8) Platelet Count 326 K/UL (150-450) Mean Platelet Volume 6.4 FL (6.5-10.1) L Neutrophils (%) (Auto) 53.6 % (45.0-75.0) Lymphocytes (%) (Auto) 38.1 % (20.0-45.0) Monocytes (%) (Auto) 7.2 % (1.0-10.0) Eosinophils (%) (Auto) 0.4 % (0.0-3.0) Basophils (%) (Auto) 0.7 % (0.0-2.0) Sodium Level 141 MMOL/L (136-145) Potassium Level 4.2 MMOL/L (3.5-5.1) Chloride Level 105 MMOL/L (98-107) Carbon Dioxide Level 26 MMOL/L (21-32) Anion Gap 10 mmol/L (5-15) Blood Urea Nitrogen 15 mg/dL (7-18) Creatinine 1.2 MG/DL (0.55-1.30) Estimat Glomerular Filtration Rate > 60 mL/min (>60) Glucose Level 94 MG/DL (74-106) Hemoglobin A1c 5.5 % (4.3-6.0) Uric Acid 5.6 MG/DL (2.6-7.2) Calcium Level 9.2 MG/DL (8.5-10.1) Phosphorus Level 3.1 MG/DL (2.5-4.9) Magnesium Level 2.0 MG/DL (1.8-2.4) Total Bilirubin 0.6 MG/DL (0.2-1.0) Gamma Glutamyl Transpeptidase 6 U/L (5-85) Aspartate Amino Transf (AST/SGOT) 13 U/L (15-37) L Alanine Aminotransferase (ALT/SGPT) 14 U/L (12-78) Alkaline Phosphatase 63 U/L (46-116) Total Creatine Kinase 91 U/L (26-308) C-Reactive Protein, Quantitative 0.5 mg/dL (0.00-0.90) Total Protein 7.1 G/DL (6.4-8.2) Albumin 3.2 G/DL (3.4-5.0) L Globulin 3.9 g/dL Albumin/Globulin Ratio 0.8 (1.0-2.7) L Triglycerides Level 49 MG/DL (30-150) Cholesterol Level 171 MG/DL (< 200) LDL Cholesterol 108 mg/dL (<100) H HDL Cholesterol 51 MG/DL (40-60) Cholesterol/HDL Ratio 3.4 (3.3-4.4) Vitamin B12 Level 309 PG/ML (193-986) Folate 6.6 NG/ML (8.6-58.9) L Thyroid Stimulating Hormone (TSH) 0.581 uiU/mL (0.358-3.740) Current Medications Medications (Trade) Dose Ordered Sig/Makenzie Route PRN Reason Start Time Stop Time Status Last Admin Dose Admin Acetaminophen (Tylenol) 650 mg Q4H PRN ORAL Mild Pain/Temp > 100.5 09/11/18 10:45 10/11/18 10:44 09/11/18 13:00 Acetaminophen/ Hydrocodone Bitart ([place] 10/325) 1 tab Q6H PRN ORAL severe pain 09/11/18 23:30 09/18/18 23:29 09/12/18 10:24 Atorvastatin Calcium (Lipitor) 20 mg BEDTIME ORAL 09/12/18 21:00 10/12/18 20:59 Ceftriaxone Sodium 1 gm/ Dextrose 55 ml @ 110 mls/hr Q24H IVPB 09/11/18 12:00 09/18/18 11:59 09/12/18 12:17 Clonidine HCl (Catapres Tab) 0.1 mg Q6H PRN ORAL For High Blood Pressure 09/11/18 23:45 10/11/18 23:44 09/12/18 07:43 Clopidogrel Bisulfate (Plavix) 75 mg DAILY ORAL 09/13/18 09:00 10/13/18 08:59 Docusate Sodium (Colace) 100 mg THREE TIMES A DAY ORAL 09/12/18 13:00 10/12/18 12:59 09/12/18 12:17 Furosemide (Lasix) 20 mg DAILY ORAL 09/13/18 09:00 10/13/18 08:59 Hydralazine HCl (Apresoline) 25 mg EVERY 8 HOURS ORAL 09/12/18 14:00 10/12/18 13:59 Isosorbide Dinitrate (Isordil) 10 mg Q6HR ORAL 09/12/18 12:00 10/12/18 11:59 09/12/18 12:17 Metoprolol Tartrate (Lopressor) 50 mg Q12HR ORAL 09/12/18 21:00 10/12/18 20:59 Pantoprazole (Protonix) 40 mg DAILY ORAL 09/12/18 09:30 10/12/18 09:29 09/12/18 09:52 Tramadol HCl (Ultram) 50 mg Q6H PRN ORAL moderate pain 09/12/18 09:30 09/19/18 09:29 Gary Fuentes MD Sep 12, 2018 13:53
[2018-09-12] MEDS ORDERED: HydrALAZINE 25mg tab ORAL SCH (14:00)
[2018-09-12] MEDS: HydrALAZINE 25mg tab ORAL SCH ×2 (14:47→22:21)
[2018-09-12 16:00] VITALS: BP 132/76
[2018-09-12] MEDS: Vancomycin 1gm/D5W 275ml IVPB SCH ×2 (16:16)
[2018-09-12 20:00] VITALS: BP 129/63
[2018-09-12] MEDS: Atorvastatin 20mg tab ORAL SCH (22:20)
[2018-09-12] MEDS: Metoprolol Tartrate 50mg tab ORAL SCH (22:21)
[2018-09-13] VITALS (8 sets, daily range): BP systolic 121–176; BP diastolic 75–93
[2018-09-13] MEDS: Vancomycin 1gm/D5W 275ml IVPB SCH ×4 (04:42→16:17)
[2018-09-13] MEDS: HYDROcodone/Acetamin 10/325 tab ORAL PRN ×4 (04:51→23:32)
[2018-09-13] MEDS: HydrALAZINE 25mg tab ORAL SCH (05:40)
[2018-09-13] MEDS: Metoprolol Tartrate 50mg tab ORAL SCH ×2 (08:38→21:06)
[2018-09-13] MEDS: Docusate 100mg cap ORAL SCH ×3 (08:38→17:46)
--- NOTE | 2018-09-13 10:18 | Nephrology Progress Note ---
Assessment/Plan Problem List: (1) UTI (urinary tract infection) (2) Dehydration (3) Hypertensive emergency Assessment UTI Chronic pain due to spinal cord injury. h/o Bradyarrhythmia, Hypertensive urgency. History of coronary stent. Dehydration. Metabolic encephalopathy. Plan check labs adjust BP meds antibiotics per orders Subjective Constitutional: Reports: malaise, weakness Objective Objective Last 24 Hour Vital Signs Date Time Temp Pulse Resp B/P (MAP) Pulse Ox O2 Delivery O2 Flow Rate FiO2 09/13/18 09:00 Room Air 09/13/18 08:38 61 174/84 09/13/18 08:00 98.3 61 18 174/84 (114) 91 09/13/18 05:40 65 130/85 (100) 09/13/18 05:40 130/85 09/13/18 05:40 130/85 09/13/18 05:22 97.7 09/13/18 04:20 98.0 60 18 129/86 (100) 95 09/13/18 04:20 56 09/13/18 00:27 135/90 09/13/18 00:00 97.7 65 18 135/90 (105) 96 09/13/18 00:00 63 09/12/18 22:21 65 129/63 09/12/18 22:21 129/63 09/12/18 21:00 Room Air 09/12/18 20:00 98.0 59 18 129/63 (85) 94 09/12/18 20:00 57 09/12/18 17:59 132/76 09/12/18 16:00 56 09/12/18 16:00 98.8 57 17 132/76 (94) 95 09/12/18 14:47 124/68 09/12/18 12:17 124/68 09/12/18 12:00 54 09/12/18 12:00 97.9 66 17 124/68 (86) 94 Intake and Output 09/12/18 09/13/18 19:00 07:00 Intake Total 1200 ml Output Total 520 ml Balance 680 ml Other 1200 ml Output Urine Total 520 ml Height (Feet): 5 Height (Inches): 11.00 Weight (Pounds): 184 General Appearance: no apparent distress, lethargic Cardiovascular: normal rate Respiratory/Chest: decreased breath sounds Abdomen: soft Toro Chinchilla MD Sep 13, 2018 10:18
[2018-09-13] MEDS: cefTRIAXone 1 GM in D5W 55 ML IVPB SCH (11:02)
--- NOTE | 2018-09-13 13:15 | Infectious Diseases Prog Note ---
Assessment/Plan Assessment/Plan A : Bacteremia complicated UTI. tachycardia and lactic acidosis resolved hypertension, has hypothyroidism, chronic back pain. RECOMMENDATION: Continue Ceftriaxone & IV vancomycin Will f/u cultures Subjective ROS Limited/Unobtainable: No Constitutional: Reports: no symptoms Respiratory: Reports: no symptoms Cardiovascular: Reports: no symptoms Gastrointestinal/Abdominal: Reports: no symptoms Genitourinary: Reports: no symptoms Neurologic: Reports: no symptoms Allergies: Coded Allergies: No Known Allergies (Unverified , 05/06/15) Objective Vital Signs Last 24 Hour Vital Signs Date Time Temp Pulse Resp B/P (MAP) Pulse Ox O2 Delivery O2 Flow Rate FiO2 09/13/18 11:58 98.1 65 20 121/75 (90) 96 09/13/18 11:02 174/84 09/13/18 09:00 Room Air 09/13/18 08:38 61 174/84 09/13/18 08:00 98.3 61 18 174/84 (114) 91 09/13/18 08:00 76 09/13/18 05:40 65 130/85 (100) 09/13/18 05:40 130/85 09/13/18 05:40 130/85 09/13/18 05:22 97.7 09/13/18 04:20 98.0 60 18 129/86 (100) 95 09/13/18 04:20 56 09/13/18 00:27 135/90 09/13/18 00:00 97.7 65 18 135/90 (105) 96 09/13/18 00:00 63 09/12/18 22:21 65 129/63 09/12/18 22:21 129/63 09/12/18 21:00 Room Air 09/12/18 20:00 98.0 59 18 129/63 (85) 94 09/12/18 20:00 57 09/12/18 17:59 132/76 09/12/18 16:00 56 09/12/18 16:00 98.8 57 17 132/76 (94) 95 09/12/18 14:47 124/68 Height (Feet): 5 Height (Inches): 11.00 Weight (Pounds): 184 General Appearance: no acute distress HEENT: mucous membranes moist Respiratory/Chest: lungs clear Cardiovascular: normal rate Abdomen: soft, non tender Genitourinary: other - Graham catheter Extremities: no edema Neurologic/Psychiatric: alert, responsive Microbiology Date/Time Source Procedure Growth Status 09/11/18 06:55 Blood Blood Culture - Preliminary Gram Positive Cocci Resulted 09/11/18 06:40 Blood Blood Culture - Preliminary Gram Positive Cocci Resulted 09/11/18 11:58 Indwelling Cath Urine Culture - Preliminary Resulted 09/11/18 06:40 Urine,Clean Catch Urine Culture - Preliminary Gram Negative Bacillus 1 Gram Negative Bacillus 2 Streptococcus Species Resulted Current Medications Medications (Trade) Dose Ordered Sig/Makenzie Route PRN Reason Start Time Stop Time Status Last Admin Dose Admin Acetaminophen (Tylenol) 650 mg Q4H PRN ORAL Mild Pain/Temp > 100.5 09/11/18 10:45 10/11/18 10:44 09/11/18 13:00 Acetaminophen/ Hydrocodone Bitart ([place] 10/325) 1 tab Q6H PRN ORAL severe pain 09/11/18 23:30 09/18/18 23:29 09/13/18 11:03 Atorvastatin Calcium (Lipitor) 20 mg BEDTIME ORAL 09/12/18 21:00 10/12/18 20:59 09/12/18 22:20 Ceftriaxone Sodium 1 gm/ Dextrose 55 ml @ 110 mls/hr Q24H IVPB 09/11/18 12:00 09/18/18 11:59 09/13/18 11:02 Clonidine HCl (Catapres Tab) 0.1 mg Q6H PRN ORAL For High Blood Pressure 09/11/18 23:45 10/11/18 23:44 09/12/18 07:43 Clopidogrel Bisulfate (Plavix) 75 mg DAILY ORAL 09/13/18 09:00 10/13/18 08:59 09/13/18 08:38 Docusate Sodium (Colace) 100 mg THREE TIMES A DAY ORAL 09/12/18 13:00 10/12/18 12:59 09/13/18 12:24 Furosemide (Lasix) 20 mg DAILY ORAL 09/13/18 09:00 10/13/18 08:59 09/13/18 08:38 Hydralazine HCl (Apresoline) 50 mg EVERY 8 HOURS ORAL 09/13/18 14:00 10/12/18 13:59 Isosorbide Dinitrate (Isordil) 10 mg Q6HR ORAL 09/12/18 12:00 10/12/18 11:59 09/13/18 11:02 Metoprolol Tartrate (Lopressor) 50 mg Q12HR ORAL 09/12/18 21:00 10/12/18 20:59 09/13/18 08:38 Pantoprazole (Protonix) 40 mg DAILY ORAL 09/12/18 09:30 10/12/18 09:29 09/13/18 08:38 Tramadol HCl (Ultram) 50 mg Q6H PRN ORAL moderate pain 09/12/18 09:30 09/19/18 09:29 Vancomycin HCl (Vanco rx to dose) 1 ea DAILY PRN MISC Per rx protocol 09/12/18 14:00 10/12/18 13:59 Vancomycin HCl 1 gm/Dextrose 275 ml @ 183.708 mls/hr Q12H IVPB 09/12/18 16:00 09/17/18 15:59 09/13/18 04:42 Gary Fuentes MD Sep 13, 2018 13:15
[2018-09-13] MEDS: HydrALAZINE 50mg tab ORAL SCH ×2 (14:00→21:07)
--- NOTE | 2018-09-13 17:29 | General Progress Note ---
Assessment/Plan Assessment/Plan (1) Multiple joint pain (2) Multiple joint OA (3) Cervical DDD (4) Cervical Spondylosis (5) Cervical Radiculopathy (6) Lumbar DDD (7) Lumbar Spondylosis (8) Lumbar Radiculopathy Patient to be continued on [place] D/w Dr. Vargas and he concurred. Subjective Date patient seen: Sep 13, 2018 Time patient seen: 05:00 - pm Allergies: Coded Allergies: No Known Allergies (Unverified , 05/06/15) Subjective REVIEW OF SYSTEMS: Denies rash, fever, chills, sweating, dizziness, drowsiness, blurred vision, sore throat, or change in weight. No shortness of breath or chest pain. No nausea, vomiting, diarrhea, or blood in the stool or urine. No bowel or bladder incontinence. No dysuria. He is complaining of generalized body pain. SUBJECTIVE: Patient has been in bed pain is tolerated on the [place] and he has no new complaints at this time. Objective Last 24 Hour Vital Signs Date Time Temp Pulse Resp B/P (MAP) Pulse Ox O2 Delivery O2 Flow Rate FiO2 09/13/18 17:08 172/84 09/13/18 16:00 98.2 66 18 172/84 (113) 94 09/13/18 16:00 58 09/13/18 14:00 176/93 09/13/18 12:00 66 09/13/18 12:00 98.7 59 20 176/93 (120) 95 09/13/18 11:02 174/84 09/13/18 09:00 Room Air 09/13/18 08:38 61 174/84 09/13/18 08:00 98.3 61 18 174/84 (114) 91 09/13/18 08:00 55 09/13/18 05:40 65 130/85 (100) 09/13/18 05:40 130/85 09/13/18 05:40 130/85 09/13/18 05:22 97.7 09/13/18 04:20 98.0 60 18 129/86 (100) 95 09/13/18 04:20 56 09/13/18 00:27 135/90 09/13/18 00:00 97.7 65 18 135/90 (105) 96 09/13/18 00:00 63 09/12/18 22:21 65 129/63 09/12/18 22:21 129/63 09/12/18 21:00 Room Air 09/12/18 20:00 98.0 59 18 129/63 (85) 94 09/12/18 20:00 57 09/12/18 17:59 132/76 Intake and Output 09/12/18 09/13/18 19:00 07:00 Intake Total 1200 ml Output Total 520 ml Balance 680 ml Other 1200 ml Output Urine Total 520 ml Height (Feet): 5 Height (Inches): 11.00 Weight (Pounds): 184 Objective GENERAL: Alert, awake, and oriented. LUNGS: Decreased breath sounds bilaterally. HEART: S1 and S2 regular. ABDOMEN: Benign. EXTREMITIES: No cyanosis. No clubbing. NEURO: Weakness noted b/l UE and LE. Alex Mclean Sep 13, 2018 17:29
[2018-09-13] MEDS: Atorvastatin 20mg tab ORAL SCH (21:06)
--- NOTE | 2018-09-13 21:54 | General Progress Note ---
Assessment/Plan Problem List: (1) Sepsis ICD Codes: A41.9 - Sepsis, unspecified organism SNOMED: 32057807 (2) Dehydration ICD Codes: E86.0 - Dehydration SNOMED: 84501450 (3) Graham catheter problem ICD Codes: T83.9XXA - Unspecified complication of genitourinary prosthetic device, implant and graft, initial encounter SNOMED: 254432566 (4) Episode of generalized weakness ICD Codes: R53.1 - Weakness SNOMED: 20368560 (5) Knee pain, left ICD Codes: M25.562 - Pain in left knee SNOMED: 84517910 (6) Abdominal pain ICD Codes: R10.9 - Unspecified abdominal pain SNOMED: 08523674 (7) UTI (urinary tract infection) ICD Codes: N39.0 - Urinary tract infection, site not specified SNOMED: 22532614 Status: progressing Assessment/Plan afebrile dehydration is improving knee pain uti reviewed chart and labs clinically improving Subjective ROS Limited/Unobtainable: Yes Allergies: Coded Allergies: No Known Allergies (Unverified , 05/06/15) Objective Last 24 Hour Vital Signs Date Time Temp Pulse Resp B/P (MAP) Pulse Ox O2 Delivery O2 Flow Rate FiO2 09/13/18 21:07 169/88 09/13/18 21:06 66 169/88 09/13/18 20:00 98.4 66 18 169/88 (115) 95 09/13/18 17:08 172/84 09/13/18 16:00 98.2 66 18 172/84 (113) 94 09/13/18 16:00 58 09/13/18 14:00 176/93 09/13/18 12:00 66 09/13/18 12:00 98.7 59 20 176/93 (120) 95 09/13/18 11:02 174/84 09/13/18 09:00 Room Air 09/13/18 08:38 61 174/84 09/13/18 08:00 98.3 61 18 174/84 (114) 91 09/13/18 08:00 55 09/13/18 05:40 65 130/85 (100) 09/13/18 05:40 130/85 09/13/18 05:40 130/85 09/13/18 05:22 97.7 09/13/18 04:20 98.0 60 18 129/86 (100) 95 09/13/18 04:20 56 09/13/18 00:27 135/90 09/13/18 00:00 97.7 65 18 135/90 (105) 96 09/13/18 00:00 63 09/12/18 22:21 65 129/63 09/12/18 22:21 129/63 Intake and Output 09/12/18 09/13/18 19:00 07:00 Intake Total 1200 ml Output Total 520 ml Balance 680 ml Other 1200 ml Output Urine Total 520 ml Height (Feet): 5 Height (Inches): 11.00 Weight (Pounds): 184 Neck: supple Cardiovascular: normal rate Respiratory/Chest: lungs clear Abdomen: soft Buffy Turner MD Sep 13, 2018 21:54
[2018-09-14] VITALS: BP 141/89
[2018-09-14 04:00] VITALS: BP 185/81
[2018-09-14] MEDS ORDERED: Vancomycin 1.25gm Premix 275 ML IVPB SCH (05:00)
[2018-09-14] MEDS: HydrALAZINE 50mg tab ORAL SCH ×3 (05:41→21:43)
[2018-09-14] MEDS: HYDROcodone/Acetamin 10/325 tab ORAL PRN ×3 (05:42→17:54)
[2018-09-14 08:00] VITALS: BP 153/76
[2018-09-14] MEDS: Metoprolol Tartrate 50mg tab ORAL SCH ×2 (08:35→21:43)
[2018-09-14] MEDS: Docusate 100mg cap ORAL SCH ×6 (09:00→17:58)
--- NOTE | 2018-09-14 09:12 | General Progress Note ---
Assessment/Plan Assessment/Plan (1) Multiple joint pain (2) Multiple joint OA (3) Cervical DDD (4) Cervical Spondylosis (5) Cervical Radiculopathy (6) Lumbar DDD (7) Lumbar Spondylosis (8) Lumbar Radiculopathy Patient to be continued on [place] D/w Dr. Vargas and he concurred. Subjective Date patient seen: Sep 14, 2018 Time patient seen: 07:45 - am Allergies: Coded Allergies: No Known Allergies (Unverified , 05/06/15) Subjective REVIEW OF SYSTEMS: Denies rash, fever, chills, sweating, dizziness, drowsiness, blurred vision, sore throat, or change in weight. No shortness of breath or chest pain. No nausea, vomiting, diarrhea, or blood in the stool or urine. No bowel or bladder incontinence. No dysuria. He is complaining of generalized body pain. SUBJECTIVE: Patient is tolerating the pain on the [place]. He has no new complaints and has used 4 doses in the last 24hrs. Objective Last 24 Hour Vital Signs Date Time Temp Pulse Resp B/P (MAP) Pulse Ox O2 Delivery O2 Flow Rate FiO2 09/14/18 08:35 76 153/76 09/14/18 08:00 98.4 76 20 153/76 (101) 96 09/14/18 06:12 97.0 09/14/18 05:41 185/81 09/14/18 05:41 185/81 09/14/18 04:00 97.0 67 18 185/81 (115) 95 09/14/18 04:00 49 09/14/18 00:00 97.0 71 18 141/89 (106) 94 09/13/18 23:32 180/89 09/13/18 21:07 169/88 09/13/18 21:06 66 169/88 09/13/18 21:00 Room Air 09/13/18 20:00 63 09/13/18 20:00 98.4 66 18 169/88 (115) 95 09/13/18 17:08 172/84 09/13/18 16:00 98.2 66 18 172/84 (113) 94 09/13/18 16:00 58 09/13/18 14:00 176/93 09/13/18 12:00 66 09/13/18 12:00 98.7 59 20 176/93 (120) 95 09/13/18 11:02 174/84 Intake and Output 09/13/18 09/14/18 18:59 06:59 Intake Total 360 ml Output Total 1400 ml 550 ml Balance -1040 ml -550 ml Intake Oral 360 ml Output Urine Total 1400 ml 550 ml Laboratory Tests 09/14/18 03:17: Vancomycin Level Trough 14.7H Height (Feet): 5 Height (Inches): 11.00 Weight (Pounds): 184 Objective GENERAL: Alert, awake, and oriented. LUNGS: Decreased breath sounds bilaterally. HEART: S1 and S2 regular. ABDOMEN: Benign. EXTREMITIES: No cyanosis. No clubbing. NEURO: Weakness noted b/l UE and LE. Alex Mclean Sep 14, 2018 09:12
[2018-09-14] MEDS ORDERED: Imdur 30mg tab ORAL SCH (10:15)
--- NOTE | 2018-09-14 10:18 | Nephrology Progress Note ---
Assessment/Plan Problem List: (1) UTI (urinary tract infection) (2) Dehydration (3) Hypertensive emergency Assessment UTI Chronic pain due to spinal cord injury. h/o Bradyarrhythmia, Hypertensive urgency. History of coronary stent. Dehydration. Metabolic encephalopathy. Plan check labs adjust BP meds antibiotics per orders Subjective ROS Limited/Unobtainable: No Constitutional: Reports: malaise Objective Objective Last 24 Hour Vital Signs Date Time Temp Pulse Resp B/P (MAP) Pulse Ox O2 Delivery O2 Flow Rate FiO2 09/14/18 09:00 Room Air 09/14/18 08:35 76 153/76 09/14/18 08:00 64 09/14/18 08:00 98.4 76 20 153/76 (101) 96 09/14/18 06:12 97.0 09/14/18 05:41 185/81 09/14/18 05:41 185/81 09/14/18 04:00 97.0 67 18 185/81 (115) 95 09/14/18 04:00 49 09/14/18 00:00 97.0 71 18 141/89 (106) 94 09/13/18 23:32 180/89 09/13/18 21:07 169/88 09/13/18 21:06 66 169/88 09/13/18 21:00 Room Air 09/13/18 20:00 63 09/13/18 20:00 98.4 66 18 169/88 (115) 95 09/13/18 17:08 172/84 09/13/18 16:00 98.2 66 18 172/84 (113) 94 09/13/18 16:00 58 09/13/18 14:00 176/93 09/13/18 12:00 66 09/13/18 12:00 98.7 59 20 176/93 (120) 95 09/13/18 11:02 174/84 Intake and Output 09/13/18 09/14/18 18:59 06:59 Intake Total 360 ml Output Total 1400 ml 550 ml Balance -1040 ml -550 ml Intake Oral 360 ml Output Urine Total 1400 ml 550 ml Laboratory Tests 09/14/18 03:17: Vancomycin Level Trough 14.7H Height (Feet): 5 Height (Inches): 11.00 Weight (Pounds): 184 General Appearance: no apparent distress Objective no change Toro Chinchilla MD Sep 14, 2018 10:18
[2018-09-14 12:00] VITALS: BP 156/84
[2018-09-14] MEDS: cefTRIAXone 1 GM in D5W 55 ML IVPB SCH (12:29)
--- NOTE | 2018-09-14 12:45 | Infectious Diseases Prog Note ---
Assessment/Plan Assessment/Plan A : Positive blood culture with Staph capitis, contamination complicated UTI with Pseudomonas, Citrobacter & Enterococcus tachycardia and lactic acidosis resolved hypertension, has hypothyroidism, chronic back pain. RECOMMENDATION: Discontinue Ceftriaxone & IV vancomycin Start on Zosyn Subjective ROS Limited/Unobtainable: No Constitutional: Reports: no symptoms Gastrointestinal/Abdominal: Reports: no symptoms Genitourinary: Reports: no symptoms Allergies: Coded Allergies: No Known Allergies (Unverified , 05/06/15) Objective Vital Signs Last 24 Hour Vital Signs Date Time Temp Pulse Resp B/P (MAP) Pulse Ox O2 Delivery O2 Flow Rate FiO2 09/14/18 12:00 98.2 57 20 156/84 (108) 94 09/14/18 10:30 153/76 09/14/18 10:30 76 153/76 09/14/18 09:00 Room Air 09/14/18 08:35 76 153/76 09/14/18 08:00 64 09/14/18 08:00 98.4 76 20 153/76 (101) 96 09/14/18 06:12 97.0 09/14/18 05:41 185/81 09/14/18 05:41 185/81 09/14/18 04:00 97.0 67 18 185/81 (115) 95 09/14/18 04:00 49 09/14/18 00:00 97.0 71 18 141/89 (106) 94 09/13/18 23:32 180/89 09/13/18 21:07 169/88 09/13/18 21:06 66 169/88 09/13/18 21:00 Room Air 09/13/18 20:00 63 09/13/18 20:00 98.4 66 18 169/88 (115) 95 09/13/18 17:08 172/84 09/13/18 16:00 98.2 66 18 172/84 (113) 94 09/13/18 16:00 58 09/13/18 14:00 176/93 Height (Feet): 5 Height (Inches): 11.00 Weight (Pounds): 184 General Appearance: no acute distress HEENT: mucous membranes moist Respiratory/Chest: normal breath sounds Cardiovascular: normal rate Abdomen: soft, non tender Genitourinary: other - Graham catheter Extremities: no edema Neurologic/Psychiatric: alert, responsive Laboratory Tests Test 09/14/18 03:17 Vancomycin Level Trough 14.7 ug/mL (5.0-12.0) H Current Medications Medications (Trade) Dose Ordered Sig/Makenzie Route PRN Reason Start Time Stop Time Status Last Admin Dose Admin Acetaminophen (Tylenol) 650 mg Q4H PRN ORAL Mild Pain/Temp > 100.5 09/11/18 10:45 10/11/18 10:44 09/11/18 13:00 Acetaminophen/ Hydrocodone Bitart ([place] 10/325) 1 tab Q6H PRN ORAL severe pain 09/11/18 23:30 09/18/18 23:29 09/14/18 11:50 Amlodipine Besylate (Norvasc) 5 mg DAILY ORAL 09/15/18 09:00 10/15/18 08:59 Atorvastatin Calcium (Lipitor) 20 mg BEDTIME ORAL 09/12/18 21:00 10/12/18 20:59 09/13/18 21:06 Ceftriaxone Sodium 1 gm/ Dextrose 55 ml @ 110 mls/hr Q24H IVPB 09/11/18 12:00 09/18/18 11:59 09/14/18 12:29 Clonidine HCl (Catapres Tab) 0.1 mg Q6H PRN ORAL For High Blood Pressure 09/11/18 23:45 10/11/18 23:44 09/12/18 07:43 Clopidogrel Bisulfate (Plavix) 75 mg DAILY ORAL 09/13/18 09:00 10/13/18 08:59 09/14/18 08:35 Docusate Sodium (Colace) 100 mg THREE TIMES A DAY ORAL 09/12/18 13:00 10/12/18 12:59 09/13/18 12:24 Docusate Sodium (Colace) 100 mg THREE TIMES A DAY ORAL 09/14/18 13:00 10/14/18 12:59 Folic Acid (Folate) 3 mg DAILY ORAL 09/14/18 10:30 10/14/18 10:29 09/14/18 10:33 Furosemide (Lasix) 20 mg DAILY ORAL 09/13/18 09:00 10/13/18 08:59 09/14/18 08:35 Hydralazine HCl (Apresoline) 50 mg EVERY 8 HOURS ORAL 09/13/18 14:00 10/12/18 13:59 09/14/18 05:41 Isosorbide Mononitrate (Imdur) 30 mg DAILY ORAL 09/15/18 09:00 10/15/18 08:59 Metoprolol Tartrate (Lopressor) 50 mg Q12HR ORAL 09/12/18 21:00 10/12/18 20:59 09/14/18 08:35 Pantoprazole (Protonix) 40 mg DAILY ORAL 09/12/18 09:30 10/12/18 09:29 09/14/18 08:35 Vancomycin HCl (Vanco rx to dose) 1 ea DAILY PRN MISC Per rx protocol 09/12/18 14:00 10/12/18 13:59 Vancomycin HCl/ Dextrose 275 ml @ 183.333 mls/hr Q12H IVPB 09/14/18 05:00 09/19/18 04:59 09/14/18 06:13 Gary Fuentes MD Sep 14, 2018 12:45
[2018-09-14] MEDS: Piperacillin/Tazobactam 3.375 GM in NS 110 ML IVPB SCH ×2 (15:07→21:45)
[2018-09-14 16:00] VITALS: BP 147/75
[2018-09-14 20:00] VITALS: BP 130/65
--- NOTE | 2018-09-14 20:47 | General Progress Note ---
Assessment/Plan Problem List: (1) Sepsis ICD Codes: A41.9 - Sepsis, unspecified organism SNOMED: 27935863 (2) Dehydration ICD Codes: E86.0 - Dehydration SNOMED: 67234681 (3) Graham catheter problem ICD Codes: T83.9XXA - Unspecified complication of genitourinary prosthetic device, implant and graft, initial encounter SNOMED: 053822513 (4) Episode of generalized weakness ICD Codes: R53.1 - Weakness SNOMED: 42608188 (5) Knee pain, left ICD Codes: M25.562 - Pain in left knee SNOMED: 80542827 (6) Abdominal pain ICD Codes: R10.9 - Unspecified abdominal pain SNOMED: 67579222 (7) UTI (urinary tract infection) ICD Codes: N39.0 - Urinary tract infection, site not specified SNOMED: 61794434 Status: progressing Assessment/Plan no cough knee pain is improving encourage fluid intake uti reviewed chart and labs clinically improving Subjective ROS Limited/Unobtainable: Yes Allergies: Coded Allergies: No Known Allergies (Unverified , 05/06/15) Objective Last 24 Hour Vital Signs Date Time Temp Pulse Resp B/P (MAP) Pulse Ox O2 Delivery O2 Flow Rate FiO2 09/14/18 16:00 98.7 76 18 147/75 (99) 95 09/14/18 15:16 59 09/14/18 15:08 133/77 09/14/18 12:00 98.2 57 20 156/84 (108) 94 09/14/18 11:31 58 09/14/18 10:30 153/76 09/14/18 10:30 76 153/76 09/14/18 09:00 Room Air 09/14/18 08:35 76 153/76 09/14/18 08:00 64 09/14/18 08:00 98.4 76 20 153/76 (101) 96 09/14/18 06:12 97.0 09/14/18 05:41 185/81 09/14/18 05:41 185/81 09/14/18 04:00 97.0 67 18 185/81 (115) 95 09/14/18 04:00 49 09/14/18 00:00 97.0 71 18 141/89 (106) 94 09/13/18 23:32 180/89 09/13/18 21:07 169/88 09/13/18 21:06 66 169/88 09/13/18 21:00 Room Air Intake and Output 09/13/18 09/14/18 19:00 07:00 Intake Total 360 ml Output Total 1400 ml 550 ml Balance -1040 ml -550 ml Intake Oral 360 ml Output Urine Total 1400 ml 550 ml Laboratory Tests 09/14/18 03:17: Vancomycin Level Trough 14.7H Height (Feet): 5 Height (Inches): 11.00 Weight (Pounds): 184 Neck: supple Cardiovascular: normal rate Respiratory/Chest: lungs clear Buffy Turner MD Sep 14, 2018 20:47
[2018-09-14] MEDS: Atorvastatin 20mg tab ORAL SCH (21:42)
[2018-09-15] VITALS (7 sets, daily range): BP systolic 108–150; BP diastolic 62–77
[2018-09-15] MEDS: HYDROcodone/Acetamin 10/325 tab ORAL PRN ×4 (00:08→17:24)
[2018-09-15] MEDS: Piperacillin/Tazobactam 3.375 GM in NS 110 ML IVPB SCH ×3 (05:53→21:41)
[2018-09-15] MEDS: HydrALAZINE 50mg tab ORAL SCH ×3 (05:54→22:04)
[2018-09-15 06:05] LABS: EOSINOPHILS % (AUTO) 1.6 % (0.0-3.0); HEMATOCRIT 40.8 % (42.0-52.0); HEMOGLOBIN 13.1 G/DL (14.2-18.0); LYMPHOCYTES % (AUTO) 39.7 % (20.0-45.0); MEAN CORPUSCULAR VOLUME 89 FL (80-99); NEUTROPHILS % (AUTO) 46.8 % (45.0-75.0); PLATELET COUNT 316 K/UL (150-450); RED BLOOD COUNT 4.61 M/UL (4.70-6.10); RED CELL DISTRIBUTION WIDTH 14.2 % (11.6-14.8); WHITE BLOOD COUNT 5.9 K/UL (4.8-10.8)
[2018-09-15 06:20] LABS: ALANINE AMINOTRANSFERASE 9 U/L (12-78); ALBUMIN 3.2 G/DL (3.4-5.0); ALBUMIN/GLOBULIN RATIO 0.9 (1.0-2.7); ALKALINE PHOSPHATASE 54 U/L (46-116); ANION GAP 10 mmol/L (5-15); ASPARTATE AMINO TRANSFERASE 7 U/L (15-37); BILIRUBIN,TOTAL 0.7 MG/DL (0.2-1.0); BLOOD UREA NITROGEN 14 mg/dL (7-18); CALCIUM 8.9 MG/DL (8.5-10.1); CARBON DIOXIDE 26 MMOL/L (21-32); CHLORIDE 104 MMOL/L (98-107); CREATININE 1.4 MG/DL (0.55-1.30); PHOSPHORUS 4.3 MG/DL (2.5-4.9); POTASSIUM 3.5 MMOL/L (3.5-5.1); SODIUM 140 MMOL/L (136-145)
[2018-09-15] MEDS: Metoprolol Tartrate 50mg tab ORAL SCH (08:28)
[2018-09-15] MEDS: Docusate 100mg cap ORAL SCH ×5 (08:28→17:24)
[2018-09-15] MEDS ORDERED: Imdur 30mg tab ORAL SCH (09:00)
--- NOTE | 2018-09-15 10:17 | General Progress Note ---
Assessment/Plan Problem List: (1) Sepsis ICD Codes: A41.9 - Sepsis, unspecified organism SNOMED: 26289423 (2) Dehydration ICD Codes: E86.0 - Dehydration SNOMED: 21116100 (3) Graham catheter problem ICD Codes: T83.9XXA - Unspecified complication of genitourinary prosthetic device, implant and graft, initial encounter SNOMED: 760482390 (4) Episode of generalized weakness ICD Codes: R53.1 - Weakness SNOMED: 92475924 (5) Knee pain, left ICD Codes: M25.562 - Pain in left knee SNOMED: 44185301 (6) Abdominal pain ICD Codes: R10.9 - Unspecified abdominal pain SNOMED: 45874249 (7) UTI (urinary tract infection) ICD Codes: N39.0 - Urinary tract infection, site not specified SNOMED: 27226877 Status: progressing Assessment/Plan follow up w positive culture afebrile knee pain is improving uti reviewed chart and labs clinically improving Subjective ROS Limited/Unobtainable: Yes Allergies: Coded Allergies: No Known Allergies (Unverified , 05/06/15) Objective Last 24 Hour Vital Signs Date Time Temp Pulse Resp B/P (MAP) Pulse Ox O2 Delivery O2 Flow Rate FiO2 09/15/18 09:00 Room Air 09/15/18 08:28 69 143/77 09/15/18 08:28 69 143/77 09/15/18 08:27 143/77 09/15/18 08:00 98.2 69 18 143/77 (99) 95 09/15/18 07:48 71 09/15/18 06:24 98.4 09/15/18 05:54 150/77 09/15/18 05:54 65 09/15/18 04:20 57 09/15/18 04:20 98.4 61 18 150/77 (101) 95 09/15/18 00:07 98.5 65 18 137/73 (94) 95 09/15/18 00:07 59 09/14/18 21:43 130/65 09/14/18 21:43 93 130/65 09/14/18 21:00 Room Air 09/14/18 20:00 69 09/14/18 20:00 97.4 71 18 130/65 (86) 95 09/14/18 16:00 98.7 76 18 147/75 (99) 95 09/14/18 15:16 59 09/14/18 15:08 133/77 09/14/18 12:00 98.2 57 20 156/84 (108) 94 09/14/18 11:31 58 09/14/18 10:30 153/76 09/14/18 10:30 76 153/76 Intake and Output 09/14/18 09/15/18 18:59 06:59 Intake Total 720 ml Output Total 1000 ml 800 ml Balance -280 ml -800 ml Intake Oral 720 ml Output Urine Total 1000 ml 800 ml Laboratory Tests 09/15/18 05:49: White Blood Count 5.9, Red Blood Count 4.61L, Hemoglobin 13.1L, Hematocrit 40.8L , Mean Corpuscular Volume 89, Mean Corpuscular Hemoglobin 28.5, Mean Corpuscular Hemoglobin Concent 32.1, Red Cell Distribution Width 14.2, Platelet Count 316, Mean Platelet Volume 6.9, Neutrophils (%) (Auto) 46.8, Lymphocytes (% ) (Auto) 39.7, Monocytes (%) (Auto) 11.0H, Eosinophils (%) (Auto) 1.6, Basophils (%) (Auto) 1.0, Sodium Level 140, Potassium Level 3.5, Chloride Level 104, Carbon Dioxide Level 26, Anion Gap 10, Blood Urea Nitrogen 14, Creatinine 1.4H, Estimat Glomerular Filtration Rate > 60, Glucose Level 99, Uric Acid 4.2, Calcium Level 8.9, Phosphorus Level 4.3, Magnesium Level 1.8, Total Bilirubin 0.7, Aspartate Amino Transf (AST/SGOT) 7L, Alanine Aminotransferase (ALT/SGPT) 9L, Alkaline Phosphatase 54, Total Protein 6.9, Albumin 3.2L, Globulin 3.7, Albumin/Globulin Ratio 0.9L Height (Feet): 5 Height (Inches): 11.00 Weight (Pounds): 184 Cardiovascular: normal rate Respiratory/Chest: chest wall non-tender Abdomen: soft Buffy Turner MD Sep 15, 2018 10:17
--- NOTE | 2018-09-15 12:21 | Nephrology Progress Note ---
Assessment/Plan Problem List: (1) UTI (urinary tract infection) (2) Dehydration (3) Hypertensive emergency Assessment UTI Chronic pain due to spinal cord injury. h/o Bradyarrhythmia, Hypertensive urgency. History of coronary stent. Dehydration. Metabolic encephalopathy. Plan DC Lasix check labs adjust BP meds antibiotics per orders Subjective ROS Limited/Unobtainable: No Constitutional: Reports: malaise Objective Objective Last 24 Hour Vital Signs Date Time Temp Pulse Resp B/P (MAP) Pulse Ox O2 Delivery O2 Flow Rate FiO2 09/15/18 11:10 97.3 57 18 108/62 (77) 93 09/15/18 09:00 Room Air 09/15/18 08:28 69 143/77 09/15/18 08:28 69 143/77 09/15/18 08:27 143/77 09/15/18 08:00 98.2 69 18 143/77 (99) 95 09/15/18 07:48 71 09/15/18 06:24 98.4 09/15/18 05:54 150/77 09/15/18 05:54 65 09/15/18 04:20 57 09/15/18 04:20 98.4 61 18 150/77 (101) 95 09/15/18 00:07 98.5 65 18 137/73 (94) 95 09/15/18 00:07 59 09/14/18 21:43 130/65 09/14/18 21:43 93 130/65 09/14/18 21:00 Room Air 09/14/18 20:00 69 09/14/18 20:00 97.4 71 18 130/65 (86) 95 09/14/18 16:00 98.7 76 18 147/75 (99) 95 09/14/18 15:16 59 09/14/18 15:08 133/77 Intake and Output 09/14/18 09/15/18 18:59 06:59 Intake Total 720 ml Output Total 1000 ml 800 ml Balance -280 ml -800 ml Intake Oral 720 ml Output Urine Total 1000 ml 800 ml Laboratory Tests 09/15/18 05:49: White Blood Count 5.9, Red Blood Count 4.61L, Hemoglobin 13.1L, Hematocrit 40.8L , Mean Corpuscular Volume 89, Mean Corpuscular Hemoglobin 28.5, Mean Corpuscular Hemoglobin Concent 32.1, Red Cell Distribution Width 14.2, Platelet Count 316, Mean Platelet Volume 6.9, Neutrophils (%) (Auto) 46.8, Lymphocytes (% ) (Auto) 39.7, Monocytes (%) (Auto) 11.0H, Eosinophils (%) (Auto) 1.6, Basophils (%) (Auto) 1.0, Sodium Level 140, Potassium Level 3.5, Chloride Level 104, Carbon Dioxide Level 26, Anion Gap 10, Blood Urea Nitrogen 14, Creatinine 1.4H, Estimat Glomerular Filtration Rate > 60, Glucose Level 99, Uric Acid 4.2, Calcium Level 8.9, Phosphorus Level 4.3, Magnesium Level 1.8, Total Bilirubin 0.7, Aspartate Amino Transf (AST/SGOT) 7L, Alanine Aminotransferase (ALT/SGPT) 9L, Alkaline Phosphatase 54, Total Protein 6.9, Albumin 3.2L, Globulin 3.7, Albumin/Globulin Ratio 0.9L Height (Feet): 5 Height (Inches): 11.00 Weight (Pounds): 184 General Appearance: no apparent distress Cardiovascular: normal rate, bradycardia Respiratory/Chest: decreased breath sounds Abdomen: soft Objective no change Toro Chinchilla MD Sep 15, 2018 12:21
[2018-09-15] MEDS ORDERED: Tubing IV Secondary IV ONE ×2 (17:20→17:21)
[2018-09-15] MEDS ORDERED: NS 275ml ONE (17:20)
[2018-09-15] MEDS ORDERED: NS 500ML ONE (17:21)
[2018-09-15] MEDS: Atorvastatin 20mg tab ORAL SCH (20:37)
[2018-09-15] MEDS: Metoprolol 25mg tab ORAL SCH (20:40)
[2018-09-15] MEDS ORDERED: Metoprolol 25mg tab ORAL SCH (21:00)
[2018-09-16] VITALS: BP 154/87
[2018-09-16] MEDS: HYDROcodone/Acetamin 10/325 tab ORAL PRN ×4 (00:16→18:25)
[2018-09-16 04:00] VITALS: BP 142/78
[2018-09-16] MEDS: HydrALAZINE 50mg tab ORAL SCH ×3 (05:36→21:42)
[2018-09-16] MEDS: Piperacillin/Tazobactam 3.375 GM in NS 110 ML IVPB SCH ×3 (05:37→21:39)
[2018-09-16 08:00] VITALS: BP 139/70
[2018-09-16] MEDS: Imdur 30mg tab ORAL SCH (08:56)
[2018-09-16] MEDS: Metoprolol 25mg tab ORAL SCH ×2 (08:57→20:43)
[2018-09-16] MEDS: Docusate 100mg cap ORAL SCH ×3 (08:57→17:40)
--- NOTE | 2018-09-16 10:41 | General Progress Note ---
Assessment/Plan Assessment/Plan (1) Multiple joint pain (2) Multiple joint OA (3) Cervical DDD (4) Cervical Spondylosis (5) Cervical Radiculopathy (6) Lumbar DDD (7) Lumbar Spondylosis (8) Lumbar Radiculopathy Patient to be continued on [place] D/w Dr. Vargas and he concurred. Subjective Date patient seen: Sep 16, 2018 Time patient seen: 09:15 - am Allergies: Coded Allergies: No Known Allergies (Unverified , 05/06/15) Subjective REVIEW OF SYSTEMS: Denies rash, fever, chills, sweating, dizziness, drowsiness, blurred vision, sore throat, or change in weight. No shortness of breath or chest pain. No nausea, vomiting, diarrhea, or blood in the stool or urine. No bowel or bladder incontinence. No dysuria. He is complaining of generalized body pain. SUBJECTIVE: Patient has been doing well and tolerated on the [place]. He has no new complaints at this time. Objective Last 24 Hour Vital Signs Date Time Temp Pulse Resp B/P (MAP) Pulse Ox O2 Delivery O2 Flow Rate FiO2 09/16/18 09:00 Room Air 09/16/18 08:57 84 139/70 09/16/18 08:56 139/70 09/16/18 08:56 84 139/70 09/16/18 08:00 98.3 84 17 139/70 (93) 95 09/16/18 05:36 142/78 09/16/18 04:00 98.6 72 20 142/78 (99) 94 09/16/18 00:00 98.6 82 18 154/87 (109) 95 09/15/18 22:04 142/87 09/15/18 21:00 Room Air 09/15/18 20:40 57 145/67 09/15/18 20:00 98.3 59 17 140/68 (92) 93 09/15/18 16:00 98.3 58 18 136/72 (93) 96 09/15/18 14:00 116/67 (83) 09/15/18 14:00 116/67 09/15/18 12:53 97.3 09/15/18 11:58 61 09/15/18 11:10 97.3 57 18 108/62 (77) 93 Intake and Output 09/15/18 09/16/18 19:00 07:00 Intake Total 690.0 ml 237.5 ml Output Total 700 ml 250 ml Balance -10.0 ml -12.5 ml Intake Oral 580 ml 100 ml IV Total 110.0 ml 137.5 ml Output Urine Total 700 ml 250 ml Height (Feet): 5 Height (Inches): 11.00 Weight (Pounds): 184 Objective GENERAL: Alert, awake, and oriented. LUNGS: Decreased breath sounds bilaterally. HEART: S1 and S2 regular. ABDOMEN: Benign. EXTREMITIES: No cyanosis. No clubbing. NEURO: Weakness noted b/l UE and LE. Alex Mclean Sep 16, 2018 10:41
--- NOTE | 2018-09-16 11:57 | General Progress Note ---
Assessment/Plan Problem List: (1) Sepsis ICD Codes: A41.9 - Sepsis, unspecified organism SNOMED: 10489760 (2) Dehydration ICD Codes: E86.0 - Dehydration SNOMED: 43596131 (3) Graham catheter problem ICD Codes: T83.9XXA - Unspecified complication of genitourinary prosthetic device, implant and graft, initial encounter SNOMED: 197050294 (4) Episode of generalized weakness ICD Codes: R53.1 - Weakness SNOMED: 93729290 (5) Knee pain, left ICD Codes: M25.562 - Pain in left knee SNOMED: 61443589 (6) Abdominal pain ICD Codes: R10.9 - Unspecified abdominal pain SNOMED: 67619008 (7) UTI (urinary tract infection) ICD Codes: N39.0 - Urinary tract infection, site not specified SNOMED: 03012695 Assessment/Plan sepsis and uti improving afebrile dc planning decreased knee pain Subjective Constitutional: Reports: no symptoms Allergies: Coded Allergies: No Known Allergies (Unverified , 05/06/15) Objective Last 24 Hour Vital Signs Date Time Temp Pulse Resp B/P (MAP) Pulse Ox O2 Delivery O2 Flow Rate FiO2 09/16/18 09:00 Room Air 09/16/18 08:57 84 139/70 09/16/18 08:56 139/70 09/16/18 08:56 84 139/70 09/16/18 08:00 98.3 84 17 139/70 (93) 95 09/16/18 05:36 142/78 09/16/18 04:00 98.6 72 20 142/78 (99) 94 09/16/18 00:00 98.6 82 18 154/87 (109) 95 09/15/18 22:04 142/87 09/15/18 21:00 Room Air 09/15/18 20:40 57 145/67 09/15/18 20:00 98.3 59 17 140/68 (92) 93 09/15/18 16:00 98.3 58 18 136/72 (93) 96 09/15/18 14:00 116/67 (83) 09/15/18 14:00 116/67 09/15/18 12:53 97.3 09/15/18 11:58 61 Intake and Output 09/15/18 09/16/18 19:00 07:00 Intake Total 690.0 ml 237.5 ml Output Total 700 ml 250 ml Balance -10.0 ml -12.5 ml Intake Oral 580 ml 100 ml IV Total 110.0 ml 137.5 ml Output Urine Total 700 ml 250 ml Height (Feet): 5 Height (Inches): 11.00 Weight (Pounds): 184 Cardiovascular: normal rate Respiratory/Chest: lungs clear Abdomen: soft Buffy Turner MD Sep 16, 2018 11:57
[2018-09-16 12:00] VITALS: BP 132/70
--- NOTE | 2018-09-16 12:37 | Infectious Diseases Prog Note ---
Assessment/Plan Assessment/Plan A : Positive blood culture with Staph capitis, contamination complicated UTI with Pseudomonas, Citrobacter & Enterococcus tachycardia and lactic acidosis resolved hypertension, has hypothyroidism, chronic back pain. RECOMMENDATION: Discontinue Ceftriaxone & IV vancomycin Start on Zosyn Subjective ROS Limited/Unobtainable: No Constitutional: Reports: no symptoms HEENT: Reports: no symptoms Respiratory: Reports: no symptoms Gastrointestinal/Abdominal: Reports: no symptoms Genitourinary: Reports: no symptoms Musculoskeletal: Reports: pain, other - knee, back Allergies: Coded Allergies: No Known Allergies (Unverified , 05/06/15) Objective Vital Signs Last 24 Hour Vital Signs Date Time Temp Pulse Resp B/P (MAP) Pulse Ox O2 Delivery O2 Flow Rate FiO2 09/16/18 09:00 Room Air 09/16/18 08:57 84 139/70 09/16/18 08:56 139/70 09/16/18 08:56 84 139/70 09/16/18 08:00 98.3 84 17 139/70 (93) 95 09/16/18 05:36 142/78 09/16/18 04:00 98.6 72 20 142/78 (99) 94 09/16/18 00:00 98.6 82 18 154/87 (109) 95 09/15/18 22:04 142/87 09/15/18 21:00 Room Air 09/15/18 20:40 57 145/67 09/15/18 20:00 98.3 59 17 140/68 (92) 93 09/15/18 16:00 98.3 58 18 136/72 (93) 96 09/15/18 14:00 116/67 (83) 09/15/18 14:00 116/67 09/15/18 12:53 97.3 Height (Feet): 5 Height (Inches): 11.00 Weight (Pounds): 184 General Appearance: no acute distress HEENT: mucous membranes moist Respiratory/Chest: lungs clear Cardiovascular: normal rate Abdomen: soft, non tender Genitourinary: other - Graham catheter Extremities: no edema Neurologic/Psychiatric: alert, responsive Current Medications Medications (Trade) Dose Ordered Sig/Makenzie Route PRN Reason Start Time Stop Time Status Last Admin Dose Admin Acetaminophen (Tylenol) 650 mg Q4H PRN ORAL Mild Pain/Temp > 100.5 09/15/18 13:50 10/11/18 13:49 Acetaminophen/ Hydrocodone Bitart ([place] 10/325) 1 tab Q6H PRN ORAL severe pain 09/15/18 13:52 09/18/18 13:51 09/16/18 12:08 Amlodipine Besylate (Norvasc) 5 mg DAILY ORAL 09/16/18 09:00 10/15/18 08:59 09/16/18 08:56 Atorvastatin Calcium (Lipitor) 20 mg BEDTIME ORAL 09/15/18 21:00 10/12/18 20:59 09/15/18 20:37 Clonidine HCl (Catapres Tab) 0.1 mg Q6H PRN ORAL SBP>180 09/15/18 13:50 10/11/18 13:49 Clopidogrel Bisulfate (Plavix) 75 mg DAILY ORAL 09/16/18 09:00 10/13/18 08:59 09/16/18 08:56 Docusate Sodium (Colace) 100 mg THREE TIMES A DAY ORAL 09/15/18 18:00 10/12/18 12:59 09/15/18 17:24 Folic Acid (Folate) 3 mg DAILY ORAL 09/16/18 09:00 10/14/18 10:29 09/16/18 08:57 Hydralazine HCl (Apresoline) 50 mg EVERY 8 HOURS ORAL 09/15/18 14:00 10/12/18 13:59 09/16/18 05:36 Isosorbide Mononitrate (Imdur) 30 mg DAILY ORAL 09/16/18 09:00 10/15/18 08:59 09/16/18 08:56 Metoprolol Tartrate (Lopressor) 25 mg Q12HR ORAL 09/15/18 21:00 10/12/18 20:59 09/16/18 08:57 Pantoprazole (Protonix) 40 mg DAILY ORAL 09/16/18 09:00 10/12/18 09:29 09/16/18 08:57 Piperacillin Sod/ Tazobactam Sod 3.375 gm/Sodium Chloride 110 ml @ 27.5 mls/hr EVERY 8 HOURS IVPB 09/15/18 14:00 09/20/18 13:59 09/16/18 05:37 Gary Fuentes MD Sep 16, 2018 12:37
--- NOTE | 2018-09-16 13:43 | Nephrology Progress Note ---
Assessment/Plan Problem List: (1) UTI (urinary tract infection) (2) Dehydration (3) Hypertensive emergency Assessment UTI Chronic pain due to spinal cord injury. h/o Bradyarrhythmia, Hypertensive urgency. History of coronary stent. Dehydration. Metabolic encephalopathy. Plan No labs DC Lasix check labs adjust BP meds antibiotics per orders Subjective ROS Limited/Unobtainable: No Constitutional: Reports: malaise Objective Objective Last 24 Hour Vital Signs Date Time Temp Pulse Resp B/P (MAP) Pulse Ox O2 Delivery O2 Flow Rate FiO2 09/16/18 12:00 98.8 59 17 132/70 (90) 96 09/16/18 09:00 Room Air 09/16/18 08:57 84 139/70 09/16/18 08:56 139/70 09/16/18 08:56 84 139/70 09/16/18 08:00 98.3 84 17 139/70 (93) 95 09/16/18 05:36 142/78 09/16/18 04:00 98.6 72 20 142/78 (99) 94 09/16/18 00:00 98.6 82 18 154/87 (109) 95 09/15/18 22:04 142/87 09/15/18 21:00 Room Air 09/15/18 20:40 57 145/67 09/15/18 20:00 98.3 59 17 140/68 (92) 93 09/15/18 16:00 98.3 58 18 136/72 (93) 96 09/15/18 14:00 116/67 (83) 09/15/18 14:00 116/67 Intake and Output 09/15/18 09/16/18 18:59 06:59 Intake Total 690.0 ml 237.5 ml Output Total 700 ml 250 ml Balance -10.0 ml -12.5 ml Intake Oral 580 ml 100 ml IV Total 110.0 ml 137.5 ml Output Urine Total 700 ml 250 ml Height (Feet): 5 Height (Inches): 11.00 Weight (Pounds): 184 General Appearance: no apparent distress Objective no change Toro Chinchilla MD Sep 16, 2018 13:43
[2018-09-16 16:00] VITALS: BP 133/71
[2018-09-16 20:00] VITALS: BP 127/69
[2018-09-16] MEDS: Atorvastatin 20mg tab ORAL SCH (20:43)
[2018-09-17] VITALS: BP 140/74
[2018-09-17] MEDS: HYDROcodone/Acetamin 10/325 tab ORAL PRN ×3 (00:26→12:38)
[2018-09-17 04:00] VITALS: BP 159/79
[2018-09-17 05:52] LABS: ALANINE AMINOTRANSFERASE 13 U/L (12-78); ALBUMIN 3.1 G/DL (3.4-5.0); ALBUMIN/GLOBULIN RATIO 0.9 (1.0-2.7); ALKALINE PHOSPHATASE 54 U/L (46-116); ANION GAP 7 mmol/L (5-15); ASPARTATE AMINO TRANSFERASE 10 U/L (15-37); BILIRUBIN,TOTAL 0.8 MG/DL (0.2-1.0); BLOOD UREA NITROGEN 15 mg/dL (7-18); CALCIUM 8.9 MG/DL (8.5-10.1); CARBON DIOXIDE 29 MMOL/L (21-32); CHLORIDE 107 MMOL/L (98-107); CREATININE 1.4 MG/DL (0.55-1.30); PHOSPHORUS 3.4 MG/DL (2.5-4.9); POTASSIUM 4.3 MMOL/L (3.5-5.1); SODIUM 143 MMOL/L (136-145)
[2018-09-17] MEDS: Piperacillin/Tazobactam 3.375 GM in NS 110 ML IVPB SCH (05:57)
[2018-09-17] MEDS: HydrALAZINE 50mg tab ORAL SCH (05:58)
[2018-09-17 08:00] VITALS: BP 130/71
--- NOTE | 2018-09-17 08:44 | General Progress Note ---
Assessment/Plan Assessment/Plan (1) Multiple joint pain (2) Multiple joint OA (3) Cervical DDD (4) Cervical Spondylosis (5) Cervical Radiculopathy (6) Lumbar DDD (7) Lumbar Spondylosis (8) Lumbar Radiculopathy Patient to be continued on Wirt D/w Dr. Vargas and he concurred. Subjective Date patient seen: Sep 17, 2018 Time patient seen: 07:30 - am Allergies: Coded Allergies: No Known Allergies (Unverified , 05/06/15) Subjective REVIEW OF SYSTEMS: Denies rash, fever, chills, sweating, dizziness, drowsiness, blurred vision, sore throat, or change in weight. No shortness of breath or chest pain. No nausea, vomiting, diarrhea, or blood in the stool or urine. No bowel or bladder incontinence. No dysuria. He is complaining of generalized body pain. SUBJECTIVE: Patient is sitting in chair. His pain is unchanged and tolerated on the Wirt. No new complaints at this time. Objective Last 24 Hour Vital Signs Date Time Temp Pulse Resp B/P (MAP) Pulse Ox O2 Delivery O2 Flow Rate FiO2 09/17/18 05:58 144/75 09/17/18 04:00 98.9 70 18 159/79 (105) 95 09/17/18 00:00 99.0 69 19 140/74 (96) 95 09/16/18 21:42 157/77 09/16/18 21:00 Room Air 09/16/18 20:43 67 127/69 09/16/18 20:00 98.2 67 17 127/69 (88) 94 09/16/18 16:00 99.2 62 17 133/71 (91) 95 09/16/18 13:44 126/68 09/16/18 12:00 98.8 59 17 132/70 (90) 96 09/16/18 09:00 Room Air 09/16/18 08:57 84 139/70 09/16/18 08:56 139/70 09/16/18 08:56 84 139/70 Intake and Output 09/16/18 09/17/18 19:00 07:00 Intake Total 500 ml 257.5 ml Output Total 450 ml 350 ml Balance 50 ml -92.5 ml Intake Oral 500 ml 120 ml IV Total 137.5 ml Output Urine Total 450 ml 350 ml Laboratory Tests 09/17/18 04:50: Sodium Level 143, Potassium Level 4.3, Chloride Level 107, Carbon Dioxide Level 29, Anion Gap 7, Blood Urea Nitrogen 15, Creatinine 1.4H, Estimat Glomerular Filtration Rate > 60, Glucose Level 99, Calcium Level 8.9, Phosphorus Level 3.4 , Magnesium Level 2.1, Total Bilirubin 0.8, Aspartate Amino Transf (AST/SGOT) 10L, Alanine Aminotransferase (ALT/SGPT) 13, Alkaline Phosphatase 54, Total Protein 6.7, Albumin 3.1L, Globulin 3.6, Albumin/Globulin Ratio 0.9L Height (Feet): 5 Height (Inches): 11.00 Weight (Pounds): 184 Objective GENERAL: Alert, awake, and oriented. LUNGS: Decreased breath sounds bilaterally. HEART: S1 and S2 regular. ABDOMEN: Benign. EXTREMITIES: No cyanosis. No clubbing. NEURO: Weakness noted b/l UE and LE. Alex Mclean Sep 17, 2018 08:44
[2018-09-17] MEDS: Docusate 100mg cap ORAL SCH ×2 (09:00→13:00)
[2018-09-17] MEDS: Metoprolol 25mg tab ORAL SCH (09:10)
[2018-09-17] MEDS: Imdur 30mg tab ORAL SCH (09:10)
[2018-09-17] MEDS ORDERED: FLOMAX0.4 MG ORAL (11:30)
[2018-09-17] MEDS ORDERED: PROSCAR5 MG ORAL (11:30)
[2018-09-17] MEDS ORDERED: VITAMIN D350000 UNIT PO (11:31)
[2018-09-17] MEDS ORDERED: ZANTAC150 MG ORAL (11:32)
--- NOTE | 2018-09-17 11:54 | Nephrology Progress Note ---
Assessment/Plan Problem List: (1) UTI (urinary tract infection) (2) Dehydration (3) Hypertensive emergency Assessment UTI Chronic pain due to spinal cord injury. h/o Bradyarrhythmia, Hypertensive urgency. History of coronary stent. Dehydration. Metabolic encephalopathy. Plan No labs DC Lasix check labs adjust BP meds antibiotics per orders Subjective ROS Limited/Unobtainable: No Constitutional: Reports: malaise Objective Objective Last 24 Hour Vital Signs Date Time Temp Pulse Resp B/P (MAP) Pulse Ox O2 Delivery O2 Flow Rate FiO2 09/17/18 09:10 89 130/71 09/17/18 09:10 130/71 09/17/18 09:10 89 130/71 09/17/18 09:00 Room Air 09/17/18 08:00 97.4 89 20 130/71 (90) 95 09/17/18 05:58 144/75 09/17/18 04:00 98.9 70 18 159/79 (105) 95 09/17/18 00:00 99.0 69 19 140/74 (96) 95 09/16/18 21:42 157/77 09/16/18 21:00 Room Air 09/16/18 20:43 67 127/69 09/16/18 20:00 98.2 67 17 127/69 (88) 94 09/16/18 16:00 99.2 62 17 133/71 (91) 95 09/16/18 13:44 126/68 09/16/18 12:00 98.8 59 17 132/70 (90) 96 Intake and Output 09/16/18 09/17/18 19:00 07:00 Intake Total 500 ml 257.5 ml Output Total 450 ml 350 ml Balance 50 ml -92.5 ml Intake Oral 500 ml 120 ml IV Total 137.5 ml Output Urine Total 450 ml 350 ml Laboratory Tests 09/17/18 04:50: Sodium Level 143, Potassium Level 4.3, Chloride Level 107, Carbon Dioxide Level 29, Anion Gap 7, Blood Urea Nitrogen 15, Creatinine 1.4H, Estimat Glomerular Filtration Rate > 60, Glucose Level 99, Calcium Level 8.9, Phosphorus Level 3.4 , Magnesium Level 2.1, Total Bilirubin 0.8, Aspartate Amino Transf (AST/SGOT) 10L, Alanine Aminotransferase (ALT/SGPT) 13, Alkaline Phosphatase 54, Total Protein 6.7, Albumin 3.1L, Globulin 3.6, Albumin/Globulin Ratio 0.9L Height (Feet): 5 Height (Inches): 11.00 Weight (Pounds): 184 General Appearance: no apparent distress Respiratory/Chest: decreased breath sounds Abdomen: soft Objective no change Toro Chinchilla MD Sep 17, 2018 11:54
[2018-09-17 12:00] VITALS: BP 128/73
--- NOTE | 2018-09-17 12:34 | Infectious Diseases Prog Note ---
Assessment/Plan Assessment/Plan A : Positive blood culture with Staph capitis, contamination complicated UTI with Pseudomonas, Citrobacter & Enterococcus tachycardia and lactic acidosis resolved hypertension, has hypothyroidism, chronic back pain. RECOMMENDATION: continue Zosyn in hospital At time of discharge PO Fosfomycin X 1 dose Follow up by outpatient Urologist Subjective ROS Limited/Unobtainable: No Constitutional: Reports: no symptoms Respiratory: Reports: no symptoms Cardiovascular: Reports: no symptoms Gastrointestinal/Abdominal: Reports: no symptoms Genitourinary: Reports: no symptoms Allergies: Coded Allergies: No Known Allergies (Unverified , 05/06/15) Objective Vital Signs Last 24 Hour Vital Signs Date Time Temp Pulse Resp B/P (MAP) Pulse Ox O2 Delivery O2 Flow Rate FiO2 09/17/18 09:10 89 130/71 09/17/18 09:10 130/71 09/17/18 09:10 89 130/71 09/17/18 09:00 Room Air 09/17/18 08:00 97.4 89 20 130/71 (90) 95 09/17/18 05:58 144/75 09/17/18 04:00 98.9 70 18 159/79 (105) 95 09/17/18 00:00 99.0 69 19 140/74 (96) 95 09/16/18 21:42 157/77 09/16/18 21:00 Room Air 09/16/18 20:43 67 127/69 09/16/18 20:00 98.2 67 17 127/69 (88) 94 09/16/18 16:00 99.2 62 17 133/71 (91) 95 09/16/18 13:44 126/68 Height (Feet): 5 Height (Inches): 11.00 Weight (Pounds): 184 HEENT: mucous membranes moist Respiratory/Chest: lungs clear Cardiovascular: normal rate Abdomen: soft, non tender Genitourinary: other - Graham catheter Extremities: no edema Neurologic/Psychiatric: alert, responsive Laboratory Tests Test 09/17/18 04:50 Sodium Level 143 MMOL/L (136-145) Potassium Level 4.3 MMOL/L (3.5-5.1) Chloride Level 107 MMOL/L (98-107) Carbon Dioxide Level 29 MMOL/L (21-32) Anion Gap 7 mmol/L (5-15) Blood Urea Nitrogen 15 mg/dL (7-18) Creatinine 1.4 MG/DL (0.55-1.30) H Estimat Glomerular Filtration Rate > 60 mL/min (>60) Glucose Level 99 MG/DL (74-106) Calcium Level 8.9 MG/DL (8.5-10.1) Phosphorus Level 3.4 MG/DL (2.5-4.9) Magnesium Level 2.1 MG/DL (1.8-2.4) Total Bilirubin 0.8 MG/DL (0.2-1.0) Aspartate Amino Transf (AST/SGOT) 10 U/L (15-37) L Alanine Aminotransferase (ALT/SGPT) 13 U/L (12-78) Alkaline Phosphatase 54 U/L (46-116) Total Protein 6.7 G/DL (6.4-8.2) Albumin 3.1 G/DL (3.4-5.0) L Globulin 3.6 g/dL Albumin/Globulin Ratio 0.9 (1.0-2.7) L Current Medications Medications (Trade) Dose Ordered Sig/Makenzie Route PRN Reason Start Time Stop Time Status Last Admin Dose Admin Acetaminophen (Tylenol) 650 mg Q4H PRN ORAL Mild Pain/Temp > 100.5 09/15/18 13:50 10/11/18 13:49 Acetaminophen/ Hydrocodone Bitart ([place] 10/325) 1 tab Q6H PRN ORAL severe pain 09/15/18 13:52 09/18/18 13:51 09/17/18 06:29 Amlodipine Besylate (Norvasc) 5 mg DAILY ORAL 09/16/18 09:00 10/15/18 08:59 09/17/18 09:10 Atorvastatin Calcium (Lipitor) 20 mg BEDTIME ORAL 09/15/18 21:00 10/12/18 20:59 09/16/18 20:43 Clonidine HCl (Catapres Tab) 0.1 mg Q6H PRN ORAL SBP>180 09/15/18 13:50 10/11/18 13:49 Clopidogrel Bisulfate (Plavix) 75 mg DAILY ORAL 09/16/18 09:00 10/13/18 08:59 09/17/18 09:10 Docusate Sodium (Colace) 100 mg THREE TIMES A DAY ORAL 09/15/18 18:00 10/12/18 12:59 09/15/18 17:24 Folic Acid (Folate) 3 mg DAILY ORAL 09/16/18 09:00 10/14/18 10:29 09/17/18 09:10 Hydralazine HCl (Apresoline) 50 mg EVERY 8 HOURS ORAL 09/15/18 14:00 10/12/18 13:59 09/17/18 05:58 Isosorbide Mononitrate (Imdur) 30 mg DAILY ORAL 09/16/18 09:00 10/15/18 08:59 09/17/18 09:10 Metoprolol Tartrate (Lopressor) 25 mg Q12HR ORAL 09/15/18 21:00 10/12/18 20:59 09/17/18 09:10 Pantoprazole (Protonix) 40 mg DAILY ORAL 09/16/18 09:00 10/12/18 09:29 09/17/18 09:10 Piperacillin Sod/ Tazobactam Sod 3.375 gm/Sodium Chloride 110 ml @ 27.5 mls/hr EVERY 8 HOURS IVPB 09/15/18 14:00 09/20/18 13:59 09/17/18 05:57 Gary Fuentes MD Sep 17, 2018 12:34
[2018-09-17] MEDS ORDERED: MONUROL3 GM ORAL (12:55)
--- NOTE | 2018-09-19 12:42 | Discharge Summary ---
Discharge Summary Discharge Summary _ DATE OF ADMISSION: 09/11/2018 DATE OF DISCHARGE: 09/17/2018 DISCHARGED BY: Dr Turner REASON FOR ADMISSION: 68 years old male with past medical history of hypertension, coronary artery disease with history of [place] , status post coronary stents placement, spinal cord injury, presented with complaint of generalized weakness. Patient had a previous neck injury and reported self catheterize himself as needed. He denied fevers, chills . He reported in the past few days being increasingly tired and weak He denied any focal weakness. He denied chest pain, shortness of breath, and cough. Upon evaluation patient was afebrile, but tachycardic with heart rate 132, tachypneic, blood pressure was elevated 160/120. Laboratory workup revealed no leukocytosis, hemoglobin and hematocrit stable. Urinalysis revealed evidence of moderate bacteria,, +3 leukocyte esterase mild pyuria. Lactic acid 2.4. Stable renal parameters. BUN 15, creatinine 1.4. Stable LFT. Troponin negative. Pro BNP 321. EKG revealed sinus tachycardia, no acute ischemic changes. Urine toxicology screen negative Chest x-ray revealed nonspecific interstitial markings, no evidence of consolidation, effusion, or pneumothorax. Patient started on aggressive IV hydration. Patient pancultured, started on empiric antibiotics and was admitted for further management. CONSULTANTS: ID specialist Dr. Arias head chopper Dr. Chinchilla pain specialist Dr. Vargas HOSPITAL COURSE: Patient admitted and was continued on IV hydration with close monitoring of volumes and renal parameters. Statistical Consultant closely followed. Electrolytes corrected as needed. Home medication resumed. Patient demonstrated evidence of hypertensive urgency in the emergency department. Antihypertensive medication regimen was optimized as per head chopper to keep blood pressure under control. Patient was on multiple antihypertensive medications, including calcium channel monika, beta-monika, Hydralazine. Blood pressure stabilized. Lipid panel was borderline LDL 108. Antiplatelet therapy with Plavix and statin were continued. Nitrates continued. GI prophylaxis provided. Infectious disease specialist followed. Patient started on empiric antibiotic for possible UTI. Blood culture revealed Staph capitis. Urine culture revealed Pseudomonas, Citrobacter and Enterococcus. Per infectious disease specialist, positive blood cultures with Staph capitis was contamination. However, patient did have complicated urinary tract infection with Pseudomonas, Citrobacter, and Enterococci. Patient was on Zosyn while in the hospital. At the time of discharge, patient was transitioned to fosfomycin x1 dose and then follow-up with [facility] outpatient urologist. TSH within normal limits. Noted folate deficiency. Patient started on folic acid supplement. Pain management was addressed as per pain specialist recommendations. Patient with multiply joint pain and osteoarthritis due to cervical and lumbar degenerative disc disease, spondylosis and radiculopathy. Pain was controlled with current regimen. Supportive care provided. Bowel regimen instituted. Creatinine initially trended down from 1.4 to 1.2 , but then trended up again. Patient was on maintenance dose of Lasix with close monitoring of volumes and cardiorenal parameters. At this time Lasix stopped , given worsening creatinine and no clinical evidence of decompensation. Patient clinically stabilized and was ready for discharge home . Outpatient follow-up with urologist. FINAL DIAGNOSES: Sepsis due to UTI Hypertensive urgency Complicated urinary tract infection with Pseudomonas, Citrobacter and Enterococci Metabolic encephalopathy Dehydration Coronary artery disease with history of coronary stents and [place] Lactic acidosis- resolved Tachycardia- resolved Hypothyroidism Chronic back pain due to spinal cord injury Cervical DDD Cervical spondylosis Cervical radiculopathy Lumbar DDD Lumbar spondylosis Lumbar radiculopathy Multiply joint osteoarthritis DISCHARGE MEDICATIONS: See Medication Reconciliation list. DISCHARGE INSTRUCTIONS: Patient was discharged home . Follow up with primary care provider in one week. I have been assigned to dictate discharge summary for this account. I was not involved in the patient's management. Shanelle Olivia NP Sep 19, 2018 12:42
== END 2018-09-17 13:20 | disposition home or self-care (01) | DRG 871 ==
LOC: EDBD 06:32 → EMR 07:01 → 2W 07:43 → EDBEDREQ 09:25 → EDBEDREQSVC 09:35 → EDBEDREQ 09:35 → 2E 10:04 → 3E 09-15 13:35
DX: A41.9 Sepsis, unspecified organism (principal); G93.41 Metabolic encephalopathy; N39.0 Urinary tract infection, site not specified; E86.0 Dehydration; Z98.1 Arthrodesis status; Z91.81 History of falling; I25.10 Atherosclerotic heart disease of native coronary artery without angina pectoris; Z95.5 Presence of coronary angioplasty implant and graft; I16.0 Hypertensive urgency; M15.9 Polyosteoarthritis, unspecified; M50.10 Cervical disc disorder with radiculopathy, unspecified cervical region; E03.9 Hypothyroidism, unspecified; B95.2 Enterococcus as the cause of diseases classified elsewhere; B96.5 Pseudomonas (aeruginosa) (mallei) (pseudomallei) as the cause of diseases classified elsewhere; B96.89 Other specified bacterial agents as the cause of diseases classified elsewhere; M25.562 Pain in left knee; R10.9 Unspecified abdominal pain; M47.892 Other spondylosis, cervical region; M51.16 Intervertebral disc disorders with radiculopathy, lumbar region; M47.896 Other spondylosis, lumbar region; I25.2 Old myocardial infarction
CPT/HCPCS: 36415; 71045; 80053; 80061; 80202; 80307; 81003; 82550; 82553; 82607; 82746; 82977; 83036; 83605; 83690; 83735; 83880; 84100; 84443; 84484; 84550; 85025; 85610; 85730; 86140; 87040; 87086; 87181; 93005; 96361; 96365; 99291

== ENCOUNTER 2018-12-24 19:23 | Emergency (ER) | payer OTHER ==
[~2018-12-24] VITALS: Ht 180.3 cm; Wt 77.1 kg
[~2018-12-24 19:23] MED LIST changes: +AMLODIPINE-BEN1 EACH ORAL; +FLOMAX0.4 MG ORAL; +MONUROL3 GM ORAL; +PROSCAR5 MG ORAL; +VITAMIN D350000 UNIT PO; +ZANTAC150 MG ORAL
[2018-12-24 19:30] VITALS: BP 200/100
--- NOTE | 2018-12-24 19:37 | NUR ---
ED Nurse Note: Pt came from urologist office after having a zhu placed, it came out . Pt denies pain at this time. Pt is A&Ox4, BP is 200/100.
--- NOTE | 2018-12-24 20:05 | NUR ---
ED Nurse Note: 14F zhu cath with leg bag inserted without issue, pt tolerated well. Secured to leg.
--- NOTE | 2018-12-24 20:09 | Emergency Room Report ---
History of Present Illness General Chief Complaint: Male Urogenital Problems Source: Patient Present Illness HPI The patient had a Graham catheter placed at his urologist office earlier today. When he got home he got pulled out. He is here to have it replaced. He has some suprapubic fullness but no significant pain. There is no hematuria. He denies any fevers or chills or back pain. The patient has a history of spinal cord injury and inability to control his bladder. He took all of his BP meds except hydralazine. Allergies: Coded Allergies: No Known Allergies (Unverified , 05/06/15) Patient History Past Medical History: see triage record Social History: Denies: smoking - Former Social History Narrative Brought by friend. Walks with walker Reviewed Nursing Documentation: PMH: Agreed; PSxH: Agreed Nursing Documentation-PMH Past Medical History: No History, Except For Hx Cardiac Problems: Yes - UNSPECIFIED Hx Hypertension: Yes Hx Cancer: No Hx Gastrointestinal Problems: No Hx Neurological Problems: No Hx Spinal Cord Injury: Yes - due to fall Review of Systems Constitutional: Denies: fever Respiratory: Denies: shortness of breath Cardiovascular: Denies: chest pain Gastrointestinal: Reports: see HPI Genitourinary: Reports: see HPI Skin: Denies: rash Hematologic/Lymphatic: Reports: see HPI Physical Exam Vital Signs Date Time Temp Pulse Resp B/P (MAP) Pulse Ox O2 Delivery O2 Flow Rate FiO2 12/24/18 19:25 98.2 80 14 200/100 (133) 92 Room Air Sp02 EP Interpretation: reviewed, normal General Appearance: well appearing, no apparent distress, GCS 15 Head: normocephalic Eyes: bilateral eye normal inspection, bilateral eye PERRL ENT: moist mucus membranes Neck: supple Respiratory: lungs clear Cardiovascular #1: regular rate, rhythm Gastrointestinal: other - Suprapubic fullness Genitourinary: penis normal Musculoskeletal: other - Walks hunched over Neurologic: alert, oriented x3, grossly normal Psychiatric: mood/affect normal Skin: no rash Medical Decision Making Diagnostic Impression: Primary Impression: Urinary retention Additional Impression: Hypertension Qualified Codes: I10 - Essential (primary) hypertension ER Course Patient presents after Graham catheter was pulled out. Differential includes urethral trauma, bladder outlet obstruction, UTI amongst others. A Graham catheter will be replaced. Urinalysis will be checked. Incidentally his blood pressure is very high. He will be treated with his usual medication. No other labs or imaging studies indicated at this time. Patient improved after Graham placed. Urinalysis clear. Blood pressure improved with hydralazine. Discussed treatment plan with patient. Patient stable for outpatient observation and treatment. Laboratory Tests Test 12/24/18 20:03 Urine Color Pale yellow Urine Appearance Clear Urine pH 7 (4.5-8.0) Urine Specific [place] 1.000 (1.005-1.035) Urine Protein Negative (NEGATIVE) Urine Glucose (UA) Negative (NEGATIVE) Urine Ketones Negative (NEGATIVE) Urine Blood 5+ (NEGATIVE) H Urine Nitrite Negative (NEGATIVE) Urine Bilirubin Negative (NEGATIVE) Urine Urobilinogen Normal MG/DL (0.0-1.0) Urine Leukocyte Esterase 2+ (NEGATIVE) H Urine RBC 2-4 /HPF (0 - 0) H Urine WBC 2-4 /HPF (0 - 0) Urine Squamous Epithelial Cells None /LPF (NONE/OCC) Urine Bacteria None /HPF (NONE) Last Vital Signs Date Time Temp Pulse Resp B/P (MAP) Pulse Ox O2 Delivery O2 Flow Rate FiO2 12/24/18 21:00 98.2 80 14 153/90 92 Room Air Status: improved Disposition: HOME, SELF-CARE Condition: Improved Mukesh Santiago MD Dec 24, 2018 20:09
[2018-12-24 20:11] LABS: APPEARANCE,URINE CLEAR; BILIRUBIN, URINE NEGATIVE (NEGATIVE); COLOR,URINE PALE YELLOW; GLUCOSE, URINE (UA) NEGATIVE (NEGATIVE); KETONES,URINE NEGATIVE (NEGATIVE); LEUKOCYTE ESTERASE ,URINE 2+ (NEGATIVE); NITRITE,URINE NEGATIVE (NEGATIVE); PH,URINE 7 (4.5-8.0); PROTEIN,URINE NEGATIVE (NEGATIVE); UROBILINOGEN,URINE NORMAL MG/DL (0.0-1.0)
[2018-12-24] MEDS ORDERED: HydrALAZINE 25mg tab ORAL ONE (20:15)
[2018-12-24 20:45] VITALS: BP 153/90
[2018-12-24 21:00] VITALS: BP 153/90
--- NOTE | 2018-12-24 21:00 | NUR ---
ER DISCHARGE NOTE: Patient is cleared to be discharged per ERMD, pt is aox4, on room air, with stable vital signs. pt was given dc and prescription instructions, pt was able to verbalize understanding, pt id band removed. pt is able to ambulate with steady gait. pt took all belongings.
== END 2018-12-24 21:00 | disposition home or self-care (01) ==
LOC: EMR 21:00
DX: R33.9 Retention of urine, unspecified (principal); I10 Essential (primary) hypertension; Z87.891 Personal history of nicotine dependence; T83.011A Breakdown (mechanical) of indwelling urethral catheter, initial encounter; X58.XXXA Exposure to other specified factors, initial encounter
CPT/HCPCS: 51702; 81003; 99283

== ENCOUNTER 2019-11-16 22:03 | Emergency (ER) | payer OTHER ==
[~2019-11-16] VITALS: Ht 180.3 cm; Wt 99.8 kg
[2019-11-16 22:10] VITALS: BP 145/89
--- NOTE | 2019-11-16 22:10 | NUR ---
ED Nurse Note: Pt brought into ED by NURIA Peraza from home for pt concern of "feeling septic". Pt states he was recently admitted into the hospital for sepsis/UTI and was DC with a 14 day course of antibx which he notes he finished. Pt also reports mild abdominal pain with constipation. No N/V, fever, cough or SOB. Pt is aaox4, no cardiac distress noted. Pt connected to telephone exchange operator. Will cont. to monitor.
--- NOTE | 2019-11-16 22:27 | Emergency Room Report ---
History of Present Illness General Chief Complaint: General Complaint Source: Patient Present Illness HPI Disclaimer: Please note that this report is being documented using [employer] technology. This can lead to erroneous entry secondary to incorrect interpretation by the dictating instrument. HPI: 69-year-old male history of hypertension, MD, spinal cord injury, chronic Graham catheter, UTI presented for complaints of generalized weakness. He states he has been generally weak for the past 2 days. Denies any fevers nausea vomiting or cough. He was admitted to [facility] approximately 2 to 3 weeks ago for urinary tract infection and finished a course of antibiotics at home over the past week. No chest pain, shortness of breath or headache at this time. PMH: As above PSH: Reviewed Social Hx: He denies smoking drinking or illicit drug use Allergies: Coded Allergies: No Known Allergies (Unverified , 05/06/15) COVID-19 Screening Contact w/high risk pt: No Recent Travel to affected area: No Experienced COVID-19 symptoms?: No COVID-19 Testing performed HIGH SCHOOL COACH: No Patient History Reviewed Nursing Documentation: PMH: Agreed; PSxH: Agreed Nursing Documentation-PMH Past Medical History: No History, Except For Hx Cardiac Problems: Yes - stent x4 Hx Hypertension: Yes Hx Cancer: No Hx Gastrointestinal Problems: No Hx Neurological Problems: No Hx Spinal Cord Injury: Yes - due to fall Review of Systems All Other Systems: negative except mentioned in HPI Physical Exam Vital Signs Date Time Temp Pulse Resp B/P (MAP) Pulse Ox O2 Delivery O2 Flow Rate FiO2 11/16/19 22:05 99.1 100 16 145/89 (107) 98 Room Air Sp02 EP Interpretation: reviewed, normal General Appearance: well appearing, no apparent distress Head: normocephalic, atraumatic Eyes: bilateral eye PERRL, bilateral eye EOMI ENT: hearing grossly normal, moist mucus membranes Neck: full range of motion, supple Respiratory: lungs clear, normal breath sounds, no rhonchi, no respiratory distress, no retraction, no wheezing Cardiovascular #1: normal peripheral pulses, regular rate, rhythm, no murmur Gastrointestinal: non tender, soft, non-distended, no guarding Neurologic: alert, oriented x3, no focal defects Skin: normal color, warm/dry Medical Decision Making Diagnostic Impression: Primary Impression: UTI (urinary tract infection) ER Course MDM: Differential diagnosis included but not limited to dehydration, recurrent UTI, generalized weakness, deconditioning to name a few Clinical course-IV, cardiac monitoring, pulse oximetry, laboratories and urinalysis were sent. Patient was in no acute distress on my exam. Neurologically intact. Patient had no leukocytosis noted, urinalysis with WBCs noted. Patient does have a Graham catheter in place. Due to his history of UTIs and feeling of generalized weakness will treat for recurrent UTI. He is currently not on antibiotics. I did review his previous culture from 1 year ago. It did demonstrate Pseudomonas and enterococcus sensitive to Macrobid. Will start patient on Macrobid. Patient's vital signs otherwise stable afebrile low suspicion for sepsis at this time. Will be discharged home with outpatient follow-up and return precautions. Labs - Laboratory Tests Test 11/16/19 22:15 White Blood Count 6.1 K/UL (4.8-10.8) Red Blood Count 4.41 M/UL (4.70-6.10) L Hemoglobin 12.5 G/DL (14.2-18.0) L Hematocrit 40.3 % (42.0-52.0) L Mean Corpuscular Volume 91 FL (80-99) Mean Corpuscular Hemoglobin 28.4 PG (27.0-31.0) Mean Corpuscular Hemoglobin Concent 31.1 G/DL (32.0-36.0) L Red Cell Distribution Width 14.7 % (11.6-14.8) Platelet Count 315 K/UL (150-450) Mean Platelet Volume 7.1 FL (6.5-10.1) Neutrophils (%) (Auto) 39.6 % (45.0-75.0) L Lymphocytes (%) (Auto) 48.3 % (20.0-45.0) H Monocytes (%) (Auto) 8.6 % (1.0-10.0) Eosinophils (%) (Auto) 2.4 % (0.0-3.0) Basophils (%) (Auto) 1.1 % (0.0-2.0) Urine Color Pale yellow Urine Appearance Clear Urine pH 7 (4.5-8.0) Urine Specific [place] 1.005 (1.005-1.035) Urine Protein Negative (NEGATIVE) Urine Glucose (UA) Negative (NEGATIVE) Urine Ketones Negative (NEGATIVE) Urine Blood 1+ (NEGATIVE) H Urine Nitrite Negative (NEGATIVE) Urine Bilirubin Negative (NEGATIVE) Urine Urobilinogen Normal MG/DL (0.0-1.0) Urine Leukocyte Esterase 3+ (NEGATIVE) H Urine RBC 2-4 /HPF (0 - 0) H Urine WBC 15-20 /HPF (0 - 0) H Urine Squamous Epithelial Cells None /LPF (NONE/OCC) Urine Bacteria Few /HPF (NONE) Sodium Level 138 MMOL/L (136-145) Potassium Level 3.8 MMOL/L (3.5-5.1) Chloride Level 103 MMOL/L (98-107) Carbon Dioxide Level 27 MMOL/L (21-32) Anion Gap 8 mmol/L (5-15) Blood Urea Nitrogen 17 mg/dL (7-18) Creatinine 1.4 MG/DL (0.55-1.30) H Estimated Glomerular Filtration Rate > 60 mL/min (>60) Glucose Level 102 MG/DL (74-106) Calcium Level 8.3 MG/DL (8.5-10.1) L Total Bilirubin 0.5 MG/DL (0.2-1.0) Aspartate Amino Transferase (AST) 9 U/L (15-37) L Alanine Aminotransferase (ALT) 11 U/L (12-78) L Alkaline Phosphatase 57 U/L (46-116) Troponin I 0.005 ng/mL (0.000-0.056) Total Protein 6.8 G/DL (6.4-8.2) Albumin 3.4 G/DL (3.4-5.0) Globulin 3.4 g/dL Albumin/Globulin Ratio 1.0 (1.0-2.7) Lipase 240 U/L (73-393) On reevaluation: Patient remained in no acute distress and nontoxic-appearing Plan-discharge home on p.o. antibiotic and outpatient follow-up. EKG Diagnostic Results Rate: normal Rhythm: NSR ST Segments: no acute changes Other Impression First-degree AV block, nonspecific EKG Rhythm Strip Diag. Results EP Interpretation: yes Rate: 64 Rhythm: NSR, no PVC's, no ectopy Last Vital Signs Date Time Temp Pulse Resp B/P (MAP) Pulse Ox O2 Delivery O2 Flow Rate FiO2 11/16/19 22:05 99.1 100 16 145/89 (107) 98 Room Air Status: improved Scripts Nitrofurantoin Monohyd/M-Cryst* (MACROBID 100 MG*) 100 Mg Capsule 100 MG ORAL EVERY 12 HOURS, #20 CAP Prov: Tai Suárez M.D. 11/17/19 Tai Suárez M.D. Nov 16, 2019 22:27
[2019-11-16 22:36] LABS: BASOPHILS % (AUTO) 1.1 % (0.0-2.0); EOSINOPHILS % (AUTO) 2.4 % (0.0-3.0); HEMATOCRIT 40.3 % (42.0-52.0); HEMOGLOBIN 12.5 G/DL (14.2-18.0); LYMPHOCYTES % (AUTO) 48.3 % (20.0-45.0); MEAN CORPUSCULAR VOLUME 91 FL (80-99); MONOCYTES % (AUTO) 8.6 % (1.0-10.0); NEUTROPHILS % (AUTO) 39.6 % (45.0-75.0); PLATELET COUNT 315 K/UL (150-450); RED BLOOD COUNT 4.41 M/UL (4.70-6.10); RED CELL DISTRIBUTION WIDTH 14.7 % (11.6-14.8); WHITE BLOOD COUNT 6.1 K/UL (4.8-10.8)
[2019-11-16 22:50] LABS: ANION GAP 8 mmol/L (5-15); BLOOD UREA NITROGEN 17 mg/dL (7-18); CALCIUM 8.3 MG/DL (8.5-10.1); CARBON DIOXIDE 27 MMOL/L (21-32); CHLORIDE 103 MMOL/L (98-107); CREATININE 1.4 MG/DL (0.55-1.30); POTASSIUM 3.8 MMOL/L (3.5-5.1); SODIUM 138 MMOL/L (136-145)
[2019-11-16 22:53] LABS: APPEARANCE,URINE CLEAR; BILIRUBIN, URINE NEGATIVE (NEGATIVE); COLOR,URINE PALE YELLOW; GLUCOSE, URINE (UA) NEGATIVE (NEGATIVE); KETONES,URINE NEGATIVE (NEGATIVE); LEUKOCYTE ESTERASE ,URINE 3+ (NEGATIVE); NITRITE,URINE NEGATIVE (NEGATIVE); PH,URINE 7 (4.5-8.0); PROTEIN,URINE NEGATIVE (NEGATIVE); UROBILINOGEN,URINE NORMAL MG/DL (0.0-1.0)
[2019-11-16 22:54] LABS: ALANINE AMINOTRANSFERASE 11 U/L (12-78); ALBUMIN 3.4 G/DL (3.4-5.0); ALKALINE PHOSPHATASE 57 U/L (46-116); ASPARTATE AMINO TRANSFERASE 9 U/L (15-37); BILIRUBIN,TOTAL 0.5 MG/DL (0.2-1.0)
--- NOTE | 2019-11-16 23:30 | NUR ---
ED Nurse Note: Pt is resting in bed, NAD. VSS. Will administer antibiotics.
[2019-11-17] MEDS ORDERED: NITROFURANTOIN100 M2 ORAL ×2 (00:14→13:28)
[2019-11-17] MEDS ORDERED: cefTRIAXone 1 GM in NS 55 ML IVPB ONE (00:15)
[2019-11-17 00:45] VITALS: BP 143/66
--- NOTE | 2019-11-17 00:45 | NUR ---
ER DISCHARGE NOTE: Patient is cleared to be discharged per ERMD, pt is aox4, on room air, with stable vital signs. pt was given dc and prescription instructions, pt was able to verbalize understanding, pt id band and iv site removed without complications. pt is able to ambulate with steady gait with walker. pt took all belongings and pt brother will parts picker pt.
== END 2019-11-17 00:45 | disposition home or self-care (01) ==
LOC: EDBD 22:03 → EMR 22:16
DX: N39.0 Urinary tract infection, site not specified (principal); I10 Essential (primary) hypertension; Z95.5 Presence of coronary angioplasty implant and graft; I25.2 Old myocardial infarction; I44.0 Atrioventricular block, first degree
CPT/HCPCS: 36415; 80053; 81003; 83690; 84484; 85025; 87086; 87181; 93005; 96361; 96365; 99284; J0696; J7030

== ENCOUNTER 2019-11-24 21:30 | Emergency (ER) | payer OTHER ==
[~2019-11-24] VITALS: Ht 167.6 cm; Wt 68.0 kg
[~2019-11-24 21:30] MED LIST changes: +NITROFURANTOIN100 M2 ORAL
--- NOTE | 2019-11-24 21:30 | NUR ---
ED Nurse Note: Patient was brought in by ambulance [id number] from home with complaints of difficulty urinating. Patient has a zhu that was last replaced october 30, 2019. Patient is afebrile and doesnt have any flu like symptoms. Patient is AAOX4 but needs assitance when walking.
--- NOTE | 2019-11-24 21:45 | NUR ---
ED Nurse Note: ERMD at bedside
[2019-11-24 21:49] LABS: APPEARANCE,URINE CLEAR; BILIRUBIN, URINE NEGATIVE (NEGATIVE); GLUCOSE, URINE (UA) NEGATIVE (NEGATIVE); KETONES,URINE NEGATIVE (NEGATIVE); LEUKOCYTE ESTERASE ,URINE 3+ (NEGATIVE); NITRITE,URINE NEGATIVE (NEGATIVE); PH,URINE 7 (4.5-8.0); PROTEIN,URINE NEGATIVE (NEGATIVE); UROBILINOGEN,URINE NORMAL MG/DL (0.0-1.0)
[2019-11-24 21:56] LABS: COLOR,URINE YELLOW
--- NOTE | 2019-11-24 22:00 | NUR ---
ED Nurse Note: hemodialysis lab technician at bedside
[2019-11-24 22:19] LABS: BASOPHILS % (AUTO) 1.3 % (0.0-2.0); EOSINOPHILS % (AUTO) 1.8 % (0.0-3.0); HEMATOCRIT 38.7 % (42.0-52.0); HEMOGLOBIN 11.6 G/DL (14.2-18.0); LYMPHOCYTES % (AUTO) 49.1 % (20.0-45.0); MEAN CORPUSCULAR VOLUME 96 FL (80-99); MONOCYTES % (AUTO) 10.3 % (1.0-10.0); NEUTROPHILS % (AUTO) 37.5 % (45.0-75.0); PLATELET COUNT 301 K/UL (150-450); RED BLOOD COUNT 4.04 M/UL (4.70-6.10); RED CELL DISTRIBUTION WIDTH 15.2 % (11.6-14.8); WHITE BLOOD COUNT 6.9 K/UL (4.8-10.8)
--- NOTE | 2019-11-24 22:29 | Diagnostic Imaging Report ---
EXAM: XR Chest, 1 View CLINICAL HISTORY: DYSPNEA TECHNIQUE: Frontal view of the chest. COMPARISON: 09/11/2018. FINDINGS: Lungs: The lungs are well aerated. A 0.5 cm nodule is noted at the right lung base, new since the previous study. Pleural space: Unremarkable. No pneumothorax. Heart: Cardiomediastinal silhouette unremarkable. Mediastinum: See above. Bones/joints: The ribs are unremarkable. Osteopenia. Vasculature: Atherosclerotic disease of the aortic knob. IMPRESSION: 1. A new 0.5 cm nodule at the right lung base of uncertain etiology. 2. CT imaging of the chest without contrast is advised for further evaluation.
[2019-11-24 22:34] LABS: ANION GAP 7 mmol/L (5-15); BLOOD UREA NITROGEN 10 mg/dL (7-18); CALCIUM 8.5 MG/DL (8.5-10.1); CARBON DIOXIDE 28 MMOL/L (21-32); CHLORIDE 105 MMOL/L (98-107); CREATININE 1.3 MG/DL (0.55-1.30); POTASSIUM 4.2 MMOL/L (3.5-5.1); SODIUM 140 MMOL/L (136-145)
[2019-11-24 22:45] LABS: ALANINE AMINOTRANSFERASE 13 U/L (12-78); ALBUMIN 3.5 G/DL (3.4-5.0); ALBUMIN/GLOBULIN RATIO 1.1 (1.0-2.7); ALKALINE PHOSPHATASE 59 U/L (46-116); ASPARTATE AMINO TRANSFERASE 13 U/L (15-37); BILIRUBIN,TOTAL 0.6 MG/DL (0.2-1.0); CREATINE KINASE 121 U/L (26-308)
[2019-11-24 22:51] VITALS: BP 145/42
--- NOTE | 2019-11-24 22:54 | Emergency Room Report ---
History of Present Illness General Chief Complaint: Male Urogenital Problems Source: Patient, EMS (Mukesh Santiago MD) Present Illness HPI The patient presents with 1 week of weakness, fevers and chills and dysuria. He has an indwelling Graham. He was supposed to have prostate surgery but stopped the process because of worry about exposure to COVID-19. Finally today he was so weak that he called 911 to come to the hospital. He is complaining about dysuria also. He was supposed to have surgery a few weeks ago however canceled because he was concerned about COVID-19 and being in a possible fdc facility. This was to happen in [facility]. He has spinal stenosis from an injury and is unable to control his bladder. No sore throat, chest pain, palpitations, nausea, vomiting, diarrhea, abdominal pain, shortness of breath, joint pain, rashes, depression, anxiety, visual changes, dizziness, headache. (Mukesh Santiago MD) Allergies: Coded Allergies: No Known Allergies (Unverified , 05/06/15) COVID-19 Screening Contact w/high risk pt: No Recent Travel to affected area: No Experienced COVID-19 symptoms?: No COVID-19 Testing performed TEACHER VOCAL: No (Mukesh Santiago MD) Patient History Past Medical History: see triage record Past Surgical History: PTCA, other - Cervical fusion, knee surgery Social History: Denies: smoking - Distant smoking history Social History Narrative From home, lives with brother Reviewed Nursing Documentation: PMH: Agreed; PSxH: Agreed (Mukesh Santiago MD) Nursing Documentation-PMH Hx Cardiac Problems: Yes - stent x4 Hx Hypertension: Yes Hx Cancer: No Hx Neurological Problems: No Hx Spinal Cord Injury: Yes - due to fall (Mukesh Santiago MD) Review of Systems All Other Systems: negative except mentioned in HPI (Mukesh Santiago MD) Physical Exam Vital Signs Date Time Temp Pulse Resp B/P (MAP) Pulse Ox O2 Delivery O2 Flow Rate FiO2 11/24/19 21:27 97.9 85 16 170/100 (123) 97 Room Air Sp02 EP Interpretation: reviewed, normal General Appearance: no apparent distress, non-toxic, Chronically Ill Head: normocephalic Eyes: bilateral eye normal inspection, bilateral eye PERRL, bilateral eye EOMI ENT: moist mucus membranes Neck: supple Respiratory: lungs clear, normal breath sounds Cardiovascular #1: regular rate, rhythm, no edema Cardiovascular #2: 2+ radial (R) Gastrointestinal: normal inspection, normal bowel sounds, non tender, no mass, non-distended Rectal: other - Graham present Musculoskeletal: back normal, normal range of motion, gait/station normal Neurologic: alert, oriented x3, grossly normal - Generalized weakness Psychiatric: mood/affect normal Skin: no rash, warm/dry (Mukesh Santiago MD) Medical Decision Making Diagnostic Impression: Primary Impression: UTI (urinary tract infection) Qualified Codes: T83.511A - Infection and inflammatory reaction due to indwelling urethral catheter, initial encounter; N39.0 - Urinary tract infection , site not specified Additional Impression: Episode of generalized weakness ER Course Patient presents with weakness fevers chills and dysuria with an indwelling Graham. Differential includes sepsis, urinary tract infection, electrolyte abnormality amongst others. Evaluation with blood cultures, lactate and other labs chest x-ray. Patient treated with IV hydration and depending on lactic acid will need IV antibiotics and most likely admission to the hospital. EKG with sinus rhythm. Chest x-ray with pulmonary nodule right base.. Normal white count no left shift. Lactic acid normal. Significant pyuria Patient somewhat improved with IV hydration however still weak. Antibiotics begun. Discussed with Dr. Anderson who asked if we might be able to discharge to a fdc facility if we have rapid COVID-19 testing. I stated we did. He will look to find a fdc facility and call us back. If 1 is not available he will accept the patient for observation and placement. In discussing the pulmonary nodule the patient states that this is been worked up previously. Patient refuses to go to SNF. Will contact Dr. Anderson. Discussed with Dr. Anderson. Requested rapid COVID-19 test. Performed and negative. Patient signed out to Dr. Moser. Laboratory Tests Test 11/24/19 21:40 11/24/19 22:00 Urine Color Yellow Urine Appearance Clear Urine pH 7 (4.5-8.0) Urine Specific [place] 1.010 (1.005-1.035) Urine Protein Negative (NEGATIVE) Urine Glucose (UA) Negative (NEGATIVE) Urine Ketones Negative (NEGATIVE) Urine Blood 2+ (NEGATIVE) H Urine Nitrite Negative (NEGATIVE) Urine Bilirubin Negative (NEGATIVE) Urine Urobilinogen Normal MG/DL (0.0-1.0) Urine Leukocyte Esterase 3+ (NEGATIVE) H Urine RBC 5-10 /HPF (0 - 0) H Urine WBC 40-60 /HPF (0 - 0) H Urine Squamous Epithelial Cells Moderate /LPF (NONE/OCC) H Urine Bacteria Moderate /HPF (NONE) H White Blood Count 6.9 K/UL (4.8-10.8) Red Blood Count 4.04 M/UL (4.70-6.10) L Hemoglobin 11.6 G/DL (14.2-18.0) L Hematocrit 38.7 % (42.0-52.0) L Mean Corpuscular Volume 96 FL (80-99) Mean Corpuscular Hemoglobin 28.7 PG (27.0-31.0) Mean Corpuscular Hemoglobin Concent 30.0 G/DL (32.0-36.0) L Red Cell Distribution Width 15.2 % (11.6-14.8) H Platelet Count 301 K/UL (150-450) Mean Platelet Volume 6.5 FL (6.5-10.1) Neutrophils (%) (Auto) 37.5 % (45.0-75.0) L Lymphocytes (%) (Auto) 49.1 % (20.0-45.0) H Monocytes (%) (Auto) 10.3 % (1.0-10.0) H Eosinophils (%) (Auto) 1.8 % (0.0-3.0) Basophils (%) (Auto) 1.3 % (0.0-2.0) Prothrombin Time 11.4 SEC (9.30-11.50) Prothrombin Time INR 1.0 (0.9-1.1) Activated Partial Thromboplast Time 26 SEC (23-33) Sodium Level 140 MMOL/L (136-145) Potassium Level 4.2 MMOL/L (3.5-5.1) Chloride Level 105 MMOL/L (98-107) Carbon Dioxide Level 28 MMOL/L (21-32) Anion Gap 7 mmol/L (5-15) Blood Urea Nitrogen 10 mg/dL (7-18) Creatinine 1.3 MG/DL (0.55-1.30) Estimated Glomerular Filtration Rate > 60 mL/min (>60) Glucose Level 90 MG/DL (74-106) Lactic Acid Level 1.30 mmol/L (0.4-2.0) Calcium Level 8.5 MG/DL (8.5-10.1) Magnesium Level 2.3 MG/DL (1.8-2.4) Total Bilirubin 0.6 MG/DL (0.2-1.0) Aspartate Amino Transferase (AST) 13 U/L (15-37) L Alanine Aminotransferase (ALT) 13 U/L (12-78) Alkaline Phosphatase 59 U/L (46-116) Total Creatine Kinase 121 U/L (26-308) Troponin I 0.000 ng/mL (0.000-0.056) Pro-B-Type Natriuretic Peptide 439 pg/mL (0-125) H Total Protein 6.6 G/DL (6.4-8.2) Albumin 3.5 G/DL (3.4-5.0) Globulin 3.1 g/dL Albumin/Globulin Ratio 1.1 (1.0-2.7) (Mukesh Santiago MD) ER Course Patient was to be transferred to outside facility for UTI and generalized weakness. Prior to transfer patient states that he does not want to be admitted or be transferred. He is also declining being transferred in extended care facility. He states that he wants to go home to his brother. He was given IV antibiotics for his UTI. I will give him a prescription of Keflex for his UTI. The patient is of adult age and has sound mind with no evidence of altered mental status suggesting metabolic or infections etiologies. I explained in layman's terms the risk of leaving against medical advise including and significant comorbidity. The patient was given reasonable options. This was explained in front of the patient and the bedside nurse Deni GONZALEZ. The AMA for was signed and witnessed by a nurse and patient. (Sofia Moser M.D.) EKG Diagnostic Results Rate: normal Rhythm: NSR ST Segments: no acute changes (Mukesh Santiago MD) Rhythm Strip Diag. Results EP Interpretation: yes Rhythm: NSR, no PVC's, no ectopy (Mukesh Santiago MD) Chest X-Ray Diagnostic Results Chest X-Ray Diagnostic Results : Chest X-Ray Ordered: Yes # of Views/Limited/Complete: 1 View Indication: Other EP Interpretation: Yes Interpretation: no consolidation, no effusion, no pneumothorax, other - New 0.5 cm nodule right base Impression: Other Electronically Signed by: Electronically signed by Mukesh Santiago MD (Mukesh Santiago MD) Last Vital Signs Date Time Temp Pulse Resp B/P (MAP) Pulse Ox O2 Delivery O2 Flow Rate FiO2 11/25/19 00:32 98.4 11/24/19 22:51 88 16 145/42 97 Room Air Status: improved (Mukesh Santiago MD) Disposition: AGAINST MEDICAL ADVICE Condition: Serious Scripts Cephalexin* (KEFLEX*) 500 Mg Capsule 500 MG ORAL EVERY 6 HOURS, #28 CAP Prov: Sofia Moser M.D. 11/25/19 Referrals: NON PHYSICIAN (PCP) Mukesh Santiago MD Nov 24, 2019 22:54 Sofia Moser M.D. Nov 25, 2019 01:44
[2019-11-24] MEDS ORDERED: cefTRIAXone 1 GM in NS 55 ML IVPB ONE (23:30)
--- NOTE | 2019-11-24 23:49 | NUR ---
ED Nurse Note: Rapid covid test done. Swabs sent to the lab
--- NOTE | 2019-11-24 23:55 | NUR ---
ED Nurse Note: Patient complaints of back and leg pain; PS 5/10. Per patient he is taking narcotics for pain at home as needed. ERMD notified. Pain IV meds ordered and given
[2019-11-25] MEDS ORDERED: Ketorolac 30mg Inj IV ONE
[2019-11-25] MEDS ORDERED: fentaNYL 100 mcg/2 mL IV ONE (00:45)
[2019-11-25] MEDS ORDERED: CEPHALEXIN500 MG ORAL (01:40)
--- NOTE | 2019-11-25 01:47 | NUR ---
AMA: Patient signed AMA form. Patient verbalized that he does not want to be admitted especially in another hospital. Risk and consequences explained to the patient. Family member called to pick and shovel worker the patient. SEE AMA FORM.
== END 2019-11-25 01:49 | disposition left against medical advice (07) ==
LOC: EDBD 21:30 → EMR 22:10
DX: T83.511A Infection and inflammatory reaction due to indwelling urethral catheter, initial encounter (principal); R53.1 Weakness; X58.XXXA Exposure to other specified factors, initial encounter; Y92.9 Unspecified place or not applicable; N39.0 Urinary tract infection, site not specified; Z98.1 Arthrodesis status; Z95.5 Presence of coronary angioplasty implant and graft; I10 Essential (primary) hypertension; M85.80 Other specified disorders of bone density and structure, unspecified site; I70.0 Atherosclerosis of aorta
CPT/HCPCS: 36415; 71045; 80053; 81003; 82550; 83605; 83735; 83880; 84484; 85025; 85610; 85730; 87040; 87086; 87181; 93005; 96361; 96365; 96368; 96375; 99284; J0696; J1885; J1956; J3010; J7030; U0002

== ENCOUNTER 2020-03-11 22:36 | Emergency (ER) | payer OTHER ==
[~2020-03-11] VITALS: Ht 177.8 cm; Wt 81.6 kg
[2020-03-11 22:45] VITALS: BP 138/74
[2020-03-11] MEDS ORDERED: AUGMENTIN 875-1 EAC1 ORAL (22:51)
--- NOTE | 2020-03-11 22:51 | Emergency Room Report ---
History of Present Illness General Chief Complaint: Abdominal Pain Source: Patient Present Illness HPI This is a 69-year-old male with a history of chronic indwelling Graham secondary to C-spine injury. He presents with chief complaint of suprapubic pain. He had multiple episode of this in the past. He said he has a urinary tract infection. He just had his catheter replaced 2 days ago. He denies any fever or chills. Pain with urination. Pain is 8 out of 10. No radiation of pain. Nothing made better. Nothing made it worse. No discharge. He grew out Pseudomonas in the past that is resistant to Levaquin but sensitive to gentamicin, meropenem and Zosyn. Allergies: Coded Allergies: No Known Allergies (Unverified , 05/06/15) COVID-19 Screening Contact w/high risk pt: No Recent Travel to affected area: No Experienced COVID-19 symptoms?: No COVID-19 Testing performed SYSTEMS QA ANALYST: Yes - 12/25/19 COVID-19 Screening: Negative COVID-19 COVID-19 Testing Source: [facility] Patient History Past Medical History: see triage record, old chart reviewed Past Surgical History: other Pertinent Family History: none Social History: Denies: smoking Immunizations: other Reviewed Nursing Documentation: PMH: Agreed; PSxH: Agreed Nursing Documentation-PMH Past Medical History: No History, Except For Hx Cardiac Problems: Yes - stent x4 Hx Hypertension: Yes Hx Cancer: No Hx Neurological Problems: No Hx Spinal Cord Injury: Yes - due to fall Review of Systems Eye: Denies: eye pain, blurred vision ENT: Denies: ear pain, nose congestion, throat swelling Respiratory: Denies: cough, shortness of breath Cardiovascular: Denies: chest pain, palpitations Gastrointestinal: Denies: abdominal pain, diarrhea, nausea, vomiting Genitourinary: Reports: dysuria, pain Musculoskeletal: Denies: back pain, joint pain Skin: Denies: rash Neurological: Denies: headache, numbness Endocrine: Denies: increased thirst, increased urine Hematologic/Lymphatic: Denies: easy bruising All Other Systems: negative except mentioned in HPI Physical Exam Vital Signs Date Time Temp Pulse Resp B/P (MAP) Pulse Ox O2 Delivery O2 Flow Rate FiO2 03/11/20 22:36 98.2 78 18 138/74 (95) 95 Room Air Vitals normal Sp02 EP Interpretation: reviewed, normal General Appearance: well appearing, no apparent distress, alert Head: normocephalic, atraumatic Eyes: bilateral eye PERRL, bilateral eye EOMI ENT: hearing grossly normal, normal pharynx Neck: full range of motion, supple, no meningismus Respiratory: chest non-tender, lungs clear, normal breath sounds Cardiovascular #1: regular rate, rhythm, no murmur Gastrointestinal: normal bowel sounds, non tender, no mass, no organomegaly, no bruit, non-distended Genitourinary: deferred - Graham is clean. Slightly cloudy urine. Musculoskeletal: back normal, normal range of motion Psychiatric: mood/affect normal Medical Decision Making Diagnostic Impression: Primary Impression: UTI (urinary tract infection) Qualified Codes: N30.00 - Acute cystitis without hematuria ER Course Patient with symptom consistent with UTI. Again he grew out Pseudomonas on the last urine culture. I gave him a dose of gentamicin here. Because is sensitive to Zosyn, will discharge him on Augmentin as outpatient. He looks well. Not any sepsis. No evidence of pyelonephritis. Last Vital Signs Date Time Temp Pulse Resp B/P (MAP) Pulse Ox O2 Delivery O2 Flow Rate FiO2 03/11/20 22:36 98.2 78 18 138/74 (95) 95 Room Air Status: improved Disposition: HOME, SELF-CARE Condition: Stable Scripts Amoxicillin/Potassium Clav 875-125* (AUGMENTIN 875-125 TABLET*) 1 Each Tablet 1 TAB ORAL TWICE A DAY, #14 TAB Prov: Zay Valencia MD 03/11/20 Additional Instructions: Follow-up with your doctor in 2-3 days if not better. Return for fever or increasing pain or worsening symptoms. Zay Valencia MD Mar 11, 2020 22:51
[2020-03-11 23:40] VITALS: BP 124/78
== END 2020-03-11 23:40 | disposition home or self-care (01) ==
LOC: EDBD 22:36 → EMR 23:24
DX: N30.00 Acute cystitis without hematuria (principal); I10 Essential (primary) hypertension; Z95.818 Presence of other cardiac implants and grafts; Z96.0 Presence of urogenital implants; Z79.82 Long term (current) use of aspirin; Z79.899 Other long term (current) drug therapy
CPT/HCPCS: 87086; 87181; 96365; 99284; J1580